=== PATIENT | female | born 1960 | race Caucasian/White ===

== ENCOUNTER 2017-04-10 11:54 | Observation (INO) | payer OTHER ==
[2017-04-10] MEDS ORDERED: NS 0.9% 1000 ML* 2,000 ML IV ONE (12:17)
[2017-04-10 13:07] LABS: Hematocrit 38 % (35-47); Hemoglobin 12.9 g/dl (12.0-16.0); Mean Corpuscular HGB Conc 34 g/dl (31-36); Mean Corpuscular Hemoglobin 33 pg (27-31); Mean Corpuscular Volume 98 fL (80-97); Mean Platelet Volume 9 um3 (7.4-10.4); Red Blood Count 3.91 10^6/ul (4.0-5.4); Red Cell Distribution Width 20 % (10.5-15)
[2017-04-10 13:08] LABS: Add Diff/Slide Review? Slide Review Added; Comments Flag Yes
[2017-04-10 13:18] LABS: Albumin 3.4 g/dL (3.2-5.2); BUN/Creatinine Ratio 16.7 (8-20); Calcium 8.8 mg/dL (8.6-10.3); EGFR African American 90.2 (>60); EGFR Non-African American 70.1 (>60); Globulin 3.3 g/dL (2-4); Potassium 3.2 mmol/L (3.5-5.0); Total Bilirubin 1.1 mg/dL (0.2-1.0); Total Protein 6.7 g/dL (6.4-8.9)
[2017-04-10] MEDS ORDERED: Ondansetron INJ* 2 MG/ML VIAL IV PRN (15:55)
[2017-04-10 16:36] LABS: Hematocrit 32 % (35-47); Hemoglobin 11.1 g/dl (12.0-16.0); Mean Corpuscular HGB Conc 34 g/dl (31-36); Mean Corpuscular Hemoglobin 34 pg (27-31); Mean Corpuscular Volume 98 fL (80-97); Mean Platelet Volume 9 um3 (7.4-10.4); Red Blood Count 3.31 10^6/ul (4.0-5.4); Red Cell Distribution Width 21 % (10.5-15); White Blood Count 7.1 10^3/ul (3.5-10.8)
[2017-04-10] MEDS: NS 0.9% w/ 40 Meq KCL 1000 ML* 1,000 ML IV SCH (17:17)
--- NOTE | 2017-04-10 18:21 | ED ---
Theo Islas Benjamin, scribed for Noble Buck MD on 04/10/17 at 1225 . GI/ HPI - HPI Summary HPI Summary: 56yo female presents to ED for blood in her stoma bag. Pt noticed blood in her stoma bag when she went to the bathroom to empty her bag. Pt is a chemo pt who is on 10 days on 4 days off chemotherapy regime (Avastin and Xeloda). Pt is a colon CA with mets to her liver. Denies dizziness, weakness, RODRIGUEZ, or any pain. Additional PMHx includes DVT. Pt has a filter in for clots. FHX of factor 5. - History of Current Complaint Chief Complaint: EDGIBleed Stated Complaint: STOMA Hx Obtained From: Patient Onset/Duration: Started Hours Ago, Atraumatic, Still Present Timing: Constant Severity: Mild Current Severity: Mild Vaginal Bleeding Description: Bright Red Pain Intensity: 0 Location of Pain: None Associated Signs and Symptoms: Positive: Negative. Negative: Dizziness, Weakness, Syncope, Abdominal Pain - Additional Pertinent History Primary Care Physician: AKIN - Allergy/Home Medications Allergies/Adverse Reactions: Allergies Allergy/AdvReac Type Severity Reaction Status Date / Time Iodinated Diagnostic Agents Allergy Hives Verified 04/10/17 13:47 HAY FEVER Allergy Eyes Uncoded 04/10/17 13:47 Itchy/Swollen/Red/Watery IODINE DYE Allergy Hives Uncoded 04/10/17 13:47 Home Medications: Home Medications Capecitabine (NF) [Xeloda (NF)] 1,000 mg PO BID 04/10/17 [History Confirmed ] Capecitabine (NF) [Xeloda (NF)] 300 mg PO BID 04/10/17 [History Confirmed ] Famotidine TAB* [Pepcid 20 MG TAB*] 40 mg PO DAILY 04/10/17 [History Confirmed 04/10/17] Ondansetron TAB* [Zofran 4 MG Tab*] 4 mg PO Q6H PRN 04/10/17 [History Confirmed 04/10/17] PMH/Surg Hx/FS Hx/Imm Hx Endocrine/Hematology History: Reports: Hx Anemia - ON MEDICATION Denies: Hx Diabetes, Hx Systemic Lupus Erythematosus Cardiovascular History: Reports: Hx Deep Vein Thrombosis, Other Cardiovascular Problems/Disorders - DVT LEFT LEG PRESENTLY AND ONE IN 1990; LOVENOX THERPHY Denies: Hx Congestive Heart Failure, Hx Hypertension, Hx Pacemaker/ICD GI History: Reports: Other GI Disorders - 6 months of diarrhea abd pain History: Denies: Hx Dialysis, Hx Renal Disease Musculoskeletal History: Denies: Hx Rheumatoid Arthritis Sensory History: Reports: Hx Cataracts - LEFT, Hx Contacts or Glasses - READING GLASSES Denies: Hx Hearing Aid Opthamlomology History: Reports: Hx Cataracts - LEFT, Hx Contacts or Glasses - READING GLASSES Psychiatric History: Denies: Hx Panic Disorder - Cancer History Cancer Type, Location and Year: colon cancer with mets to liver Hx Chemotherapy: Yes Hx Radiation Therapy: No - Surgical History Surgery Procedure, Year, and Place: thumb; colectomy and appy 07/19/15; IVC FILTER PLACED WITH DR. WORTHINGTON 01/28/16 [facility] - IMMEDIATELY AFTER IMPLANTATION 1.5T MRI CONDITIONAL 6-OK TO 2500G/CM (PT WILL BRING CARD WITH HER WELL) ; POWER PORT; portal vein embolization and paratial removal of liver 2015. Hx Anesthesia Reactions: No Infectious Disease History: Denies: Traveled Outside the [place] in Last 30 Days - Family History Known Family History: Positive: Blood Disorder - factor 5 Negative: Cardiac Disease, Hypertension - Social History Occupation: Employed Full-time Lives: With Family Alcohol Use: None Alcohol Amount: SINCE 08/2015 Substance Use Type: Reports: None Smoking Status (MU): Never Smoked Tobacco Review of Systems Constitutional: Negative Eyes: Negative ENT: Negative Cardiovascular: Negative Respiratory: Negative Positive: Other - blood in her stoma bag Genitourinary: Negative Musculoskeletal: Negative Skin: Negative Neurological: Negative Psychological: Normal All Other Systems Reviewed And Are Negative: Yes Physical Exam Triage Information Reviewed: Yes Vital Signs On Initial Exam: Initial Vitals Temp Pulse Resp BP Pulse Ox 97.6 F 116 20 135/91 98 04/10/17 11:56 04/10/17 11:56 04/10/17 11:56 04/10/17 11:56 04/10/17 11:56 Vital Signs Reviewed: Yes Appearance: Positive: Well-Appearing, No Pain Distress, Well-Nourished Skin: Positive: Warm, Skin Color Reflects Adequate Perfusion, Dry Head/Face: Positive: Normal Head/Face Inspection Eyes: Positive: Normal ENT: Positive: Normal ENT inspection, Hearing grossly normal Neck: Positive: Supple, Nontender Respiratory/Lung Sounds: Positive: Clear to Auscultation, Breath Sounds Present Cardiovascular: Positive: RRR. Negative: Murmur Abdomen Description: Positive: Nontender, Soft, Other: - blood in stoma bag Bowel Sounds: Positive: Present Musculoskeletal: Positive: Strength/ROM Intact Neurological: Positive: Sensory/Motor Intact, Alert, Oriented to Person Place, Time Psychiatric: Positive: Affect/Mood Appropriate Diagnostics - Vital Signs Vital Signs Temp Pulse Resp BP Pulse Ox 04/10/17 11:56 97.6 F 116 20 135/91 98 - Laboratory Lab Results: Lab Results 04/10/17 04/10/17 04/10/17 Range/Units 12:15 12:15 12:15 WBC 9.0 (3.5-10.8) 10^3/ul RBC 3.91 L (4.0-5.4) 10^6/ul Hgb 12.9 (12.0-16.0) g/dl Hct 38 (35-47) % MCV 98 H (80-97) fL MCH 33 H (27-31) pg MCHC 34 (31-36) g/dl RDW 20 H (10.5-15) % Plt Count 142 L (150-450) 10^3/ul MPV 9 (7.4-10.4) um3 Neut % (Auto) 75.1 (38-83) % Lymph % (Auto) 11.3 L (25-47) % [place] % (Auto) 11.0 H (1-9) % Eos % (Auto) 2.2 (0-6) % Baso % (Auto) 0.4 (0-2) % Absolute Neuts (auto) 6.8 (1.5-7.7) 10^3/ul Absolute Lymphs (auto) 1.0 (1.0-4.8) 10^3/ul Absolute Monos (auto) 1.0 H (0-0.8) 10^3/ul Absolute Eos (auto) 0.2 (0-0.6) 10^3/ul Absolute Basos (auto) 0 (0-0.2) 10^3/ul Absolute Nucleated RBC 0.01 10^3/ul Nucleated RBC % 0.1 INR (Anticoag Therapy) 0.98 (0.89-1.11) APTT 26.0 (26.0-36.3) seconds Sodium (133-145) mmol/L Potassium (3.5-5.0) mmol/L Chloride (101-111) mmol/L Carbon Dioxide (22-32) mmol/L Anion Gap (2-11) mmol/L BUN (6-24) mg/dL Creatinine (0.51-0.95) mg/dL Est GFR ( Amer) (>60) Est GFR (Non-Af Amer) (>60) BUN/Creatinine Ratio (8-20) Glucose (70-100) mg/dL Calcium (8.6-10.3) mg/dL Magnesium (1.9-2.7) mg/dL Total Bilirubin (0.2-1.0) mg/dL AST (13-39) U/L ALT (7-52) U/L Alkaline Phosphatase (34-104) U/L Total Protein (6.4-8.9) g/dL Albumin (3.2-5.2) g/dL Globulin (2-4) g/dL Albumin/Globulin Ratio (1-3) Blood Type O Positive Antibody Screen Negative Crossmatch See Detail 04/10/17 Range/Units 12:15 WBC (3.5-10.8) 10^3/ul RBC (4.0-5.4) 10^6/ul Hgb (12.0-16.0) g/dl Hct (35-47) % MCV (80-97) fL MCH (27-31) pg MCHC (31-36) g/dl RDW (10.5-15) % Plt Count (150-450) 10^3/ul MPV (7.4-10.4) um3 Neut % (Auto) (38-83) % Lymph % (Auto) (25-47) % [place] % (Auto) (1-9) % Eos % (Auto) (0-6) % Baso % (Auto) (0-2) % Absolute Neuts (auto) (1.5-7.7) 10^3/ul Absolute Lymphs (auto) (1.0-4.8) 10^3/ul Absolute Monos (auto) (0-0.8) 10^3/ul Absolute Eos (auto) (0-0.6) 10^3/ul Absolute Basos (auto) (0-0.2) 10^3/ul Absolute Nucleated RBC 10^3/ul Nucleated RBC % INR (Anticoag Therapy) (0.89-1.11) APTT (26.0-36.3) seconds Sodium 140 (133-145) mmol/L Potassium 3.2 L (3.5-5.0) mmol/L Chloride 111 (101-111) mmol/L Carbon Dioxide 23 (22-32) mmol/L Anion Gap 6 (2-11) mmol/L BUN 14 (6-24) mg/dL Creatinine 0.84 (0.51-0.95) mg/dL Est GFR ( Amer) 90.2 (>60) Est GFR (Non-Af Amer) 70.1 (>60) BUN/Creatinine Ratio 16.7 (8-20) Glucose 152 H (70-100) mg/dL Calcium 8.8 (8.6-10.3) mg/dL Magnesium 2.0 (1.9-2.7) mg/dL Total Bilirubin 1.10 H (0.2-1.0) mg/dL AST 120 H (13-39) U/L ALT 92 H (7-52) U/L Alkaline Phosphatase 246 H (34-104) U/L Total Protein 6.7 (6.4-8.9) g/dL Albumin 3.4 (3.2-5.2) g/dL Globulin 3.3 (2-4) g/dL Albumin/Globulin Ratio 1.0 (1-3) Blood Type Antibody Screen Crossmatch Result Diagrams: 04/10/17 16:15 04/10/17 12:15 Lab Statement: Any lab studies that have been ordered have been reviewed, and results considered in the medical decision making process. Re-Evaluation - Re-Evaluation First Eval Re-Evaluation Time: 13:21 Comment: Reviewed pts lab results with the pt. Also discussed pt's course of treatment and disposition. GIGU Course/Dx - Course Course Of Treatment: Reviewed pts medication and allergy lists. Blood pressure noted. Discussed with Dr. Campuzano (GI) at 12:22 for pts case. Discussed with Dr. Youssef (Oncology) at 12:26 for pts case. Assessment/Plan: On arrival Ms. Cano reported feeling fine today and going into the bathroom to empty her stoma bag and finding it full of blood. She called the ambulance and by the time she got here, the bag was full again. She was tachycardic therefore two peripheral lines were started and she was given NS while labs were obtained. Given her potential for decompensation, PRBC's were ordered and Dr. Youssef and Dr. Campuzano were notified. She actually did quite well and was no longer tachy after a fluid bolus and had only very little output into the bag. - Diagnoses Provider Diagnoses: Lower GI hemorrhage - Critical Care Time Critical Care Time: 30-74 min Discharge - Discharge Plan Condition: Stable Disposition: ADMITTED TO [facility] The documentation as recorded by the Theo benitez Benjamin accurately reflects the service I personally performed and the decisions made by me, Noble Buck MD.
[2017-04-10 20:40] LABS: Hematocrit 34 % (35-47); Hemoglobin 11.4 g/dl (12.0-16.0); Mean Corpuscular HGB Conc 34 g/dl (31-36); Mean Corpuscular Hemoglobin 33 pg (27-31); Mean Corpuscular Volume 98 fL (80-97); Mean Platelet Volume 9 um3 (7.4-10.4); Red Blood Count 3.43 10^6/ul (4.0-5.4); Red Cell Distribution Width 20 % (10.5-15); White Blood Count 6.5 10^3/ul (3.5-10.8)
--- NOTE | 2017-04-10 21:37 | CONS ---
GASTROENTEROLOGY CONSULTATION REPORT: DATE OF CONSULTATION: 04/10/17 CONSULTING PHYSICIAN: Rambo Newell MD. REASON FOR CONSULTATION: GI bleeding. HISTORY: This 56-year-old woman with a history of metastatic colon cancer to the liver, status post complex prior treatment including right hepatectomy, came to the emergency room with arya GI bleeding into her colostomy bag. She has recently been through 4 cycles of Avastin and Xeloda (Avastin infusion; 10 days Xeloda, 4 days off) and has been feeling reasonably well. Last night she gardened for a couple of hours. She was fine after that and ate well. She has actually been gaining some weight. In the morning, she thought her bag was full with stool, but it turned out to be blood. A couple of hours later, there was blood again. She came to the emergency room. There seemed to be blood streaming out of the stoma and indeed, the emergency physicians called me saying it was "pouring out." Dr. Vora was summoned and there seemed to be blood superficially. Pressure was applied and bleeding stopped. A suture was considered. The patient had had a colonoscopy through the stoma by Dr. Philip on 07/03/16, but no diverticula seen and no new tumor. Originally, she had had a presentation with peritonitis-free perforation, resection of the sigmoid causative tumor and biopsy of liver mets on 07/19/15. PAST MEDICAL HISTORY: 1. History of DVT - with her original June 2015 presentation - she has an IVC filter now. 2. Status post multiple abdominal surgeries with the original illness. 3. Status post right hepatectomy - this was preceded by embolization to hypertrophy on the left. 4. Biliary obstruction - she had a sequence of common bile duct stents June 2016 to January 2017. 5. Metastatic disease - trend on the most recent labs is that of alkaline phosphatase declining from 499 on 02/16/17 now to 246 on 04/10/17. CEA declining in the same time frame from 113 five steps downward to current 48.8. CURRENT MEDICATIONS: At home: 1. Zofran. 2. Xeloda. 3. Famotidine. 4. Ferrous sulfate. 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 REVIEW OF SYSTEMS: No history of prior GI bleeding, heartburn, vomiting, dysphagia, hepatitis, hemoptysis, TB, pulmonary metastasis. She does have an umbilical hernia, but no current abdominal pain. PHYSICAL EXAMINATION: She is in bed with her family present, quite jovial and joking. HEENT Exam: Unremarkable. She has no adenopathy. Her lungs are clear and heart sounds regular. The abdomen has multiple scars and an umbilical area of fullness, though there is no tenderness. There is a stoma in the left mid abdomen, not uncovered. Extremities show no edema. Neurologic is nonfocal. LABORATORY DATA/DIAGNOSTIC STUDIES: Hemoglobin 11.1, hematocrit 32, platelets 103,000. Albumin 3.4. LFTs: Alkaline phosphatase 246, ALT 92, AST 120, bilirubin 1.1, creatinine 0.84, BUN 14. CT reviewed - intraluminal contents in the colon in the right upper quadrant. IMPRESSION: Lower GI bleeding which appeared to stop when local pressure was applied at the stoma. that she had no actual melena, BUN normal and Dr. Philip's colonoscopy just 9 months ago did not show any diverticula. I have asked him in a topic review, I saw as a 3.5 to 4 fold increase in GI perforations and a 1.8 fold increase in bleeding, though specific pattern of GI bleeding was not referenced. If she stays, stops and converts to heme-negative status, then no further evaluation would appear necessary. Persistent liver involvement of the tumor appears to be a separate issue and there clearly is some biliary impingement as evidenced by the elevated alkaline phosphatase but the trends of that CEA are favorable. [id number]/[facility] #: [id number] MTDD
[2017-04-11 06:54] LABS: Hematocrit 34 % (35-47); Hemoglobin 11.3 g/dl (12.0-16.0); Mean Corpuscular HGB Conc 34 g/dl (31-36); Mean Corpuscular Hemoglobin 33 pg (27-31); Mean Corpuscular Volume 98 fL (80-97); Mean Platelet Volume 9 um3 (7.4-10.4); Red Blood Count 3.43 10^6/ul (4.0-5.4); Red Cell Distribution Width 21 % (10.5-15); White Blood Count 5.2 10^3/ul (3.5-10.8)
[2017-04-11 07:05] LABS: Albumin 2.7 g/dL (3.2-5.2); BUN/Creatinine Ratio 19.3 (8-20); Calcium 8.2 mg/dL (8.6-10.3); EGFR African American 91.5 (>60); EGFR Non-African American 71.1 (>60); Globulin 2.7 g/dL (2-4); Potassium 4.1 mmol/L (3.5-5.0); Total Bilirubin 1.8 mg/dL (0.2-1.0); Total Protein 5.4 g/dL (6.4-8.9)
[2017-04-11] MEDS: NS 0.9% w/ 40 Meq KCL 1000 ML* 1,000 ML IV SCH (07:10)
[2017-04-11 11:24] VITALS: BP 123/74
== END 2017-04-11 13:58 | disposition home or self-care (01) ==
LOC: ED 11:54 → MEDTELE 14:17 → INTOOBSV 14:17
PROVIDERS: ADMIT Internal Medicine Hematology & Oncology; ATTEND Internal Medicine Hematology & Oncology
DX: K92.2 Gastrointestinal hemorrhage, unspecified (principal); C18.9 Malignant neoplasm of colon, unspecified; C78.7 Secondary malignant neoplasm of liver and intrahepatic bile duct; Z91.041 Radiographic dye allergy status; D64.9 Anemia, unspecified; Z93.3 Colostomy status; Z86.718 Personal history of other venous thrombosis and embolism; Z79.01 Long term (current) use of anticoagulants
CPT/HCPCS: 36415; 80053; 83735; 85025; 85610; 85730; 86850; 86900; 86901; 86922; 96360; 96372; 99223; 99238; 99291; G0378; J1642

== ENCOUNTER 2017-04-24 23:16 | Emergency (ER) | payer OTHER ==
[2017-04-25 02:21] LABS: Hematocrit 30 % (35-47); Hemoglobin 10.3 g/dl (12.0-16.0); Mean Corpuscular HGB Conc 34 g/dl (31-36); Mean Corpuscular Hemoglobin 34 pg (27-31); Mean Corpuscular Volume 101 fL (80-97); Mean Platelet Volume 9 um3 (7.4-10.4); Red Blood Count 3.01 10^6/ul (4.0-5.4); Red Cell Distribution Width 19 % (10.5-15); White Blood Count 4.6 10^3/ul (3.5-10.8)
[2017-04-25 02:33] LABS: Albumin 2.7 g/dL (3.2-5.2); BUN/Creatinine Ratio 11.6 (8-20); Calcium 8.5 mg/dL (8.6-10.3); EGFR African American 113.2 (>60); Globulin 2.9 g/dL (2-4); Potassium 3.4 mmol/L (3.5-5.0); Total Bilirubin 3.2 mg/dL (0.2-1.0); Total Protein 5.6 g/dL (6.4-8.9)
--- NOTE | 2017-04-25 02:56 | ED ---
Ike Islas Thomas, scribed for Roberto Gonzalez on 04/25/17 at 0104 . GI/ HPI - HPI Summary HPI Summary: The pt is a 56 y/o F presenting to the ED c/o bleeding stoma s/p taking a BM at 21:00. At time of examination, the bleeding has ceased. She has a colostomy bag d/t her Hx of colon CA. Her surgeon is Dr. Richmond and her oncologist is Dr. Newell. She has had a colostomy for two years, but she has only had issues with her stoma bleeding in the last two weeks. She saw Dr. Richmond a week ago. Pt denies abd pain. She had chemotherapy 2 weeks ago. She denies being on any blood thinners. PMHx: DVT, colon CA, hernia. PSHx: colostomy. - History of Current Complaint Chief Complaint: EDGeneral Time Seen by Provider: 04/25/17 00:50 Stated Complaint: OSTOMY BAG BLEED Hx Obtained From: Patient, Family/Refining Still Operator - in room Onset/Duration: Started Hours Ago - onset today at 21:00, Resolved Timing: Constant Pain Intensity: 0 Associated Signs and Symptoms: Negative: Fever, Abdominal Pain Aggravating Factor(s): Nothing Alleviating Factor(s): Nothing - Additional Pertinent History Primary Care Physician: AKIN - Allergy/Home Medications Allergies/Adverse Reactions: Allergies Allergy/AdvReac Type Severity Reaction Status Date / Time Iodinated Diagnostic Agents Allergy Hives Verified 04/24/17 23:22 HAY FEVER Allergy Eyes Uncoded 04/24/17 23:22 Itchy/Swollen/Red/Watery IODINE DYE Allergy Hives Uncoded 04/24/17 23:22 PMH/Surg Hx/FS Hx/Imm Hx Previously Healthy: No Endocrine/Hematology History: Reports: Hx Anemia - ON MEDICATION Denies: Hx Diabetes, Hx Systemic Lupus Erythematosus Cardiovascular History: Reports: Hx Deep Vein Thrombosis, Other Cardiovascular Problems/Disorders - DVT LEFT LEG PRESENTLY AND ONE IN 1990; LOVENOX THERPHY Denies: Hx Congestive Heart Failure, Hx Hypertension, Hx Pacemaker/ICD GI History: Reports: Other GI Disorders - 6 months of diarrhea abd pain History: Denies: Hx Dialysis, Hx Renal Disease Musculoskeletal History: Denies: Hx Rheumatoid Arthritis Sensory History: Reports: Hx Cataracts - LEFT, Hx Contacts or Glasses - READING GLASSES Denies: Hx Hearing Aid Opthamlomology History: Reports: Hx Cataracts - LEFT, Hx Contacts or Glasses - READING GLASSES Psychiatric History: Denies: Hx Panic Disorder - Cancer History Cancer Type, Location and Year: colon cancer with mets to liver Hx Chemotherapy: Yes Hx Radiation Therapy: No - Surgical History Surgery Procedure, Year, and Place: thumb; colectomy and appy 07/19/15; IVC FILTER PLACED WITH DR. WORTHINGTON 01/28/16 [place] [facility] - IMMEDIATELY AFTER IMPLANTATION 1.5T MRI CONDITIONAL 6-OK TO 2500G/CM (PT WILL BRING CARD WITH HER WELL) ; POWER PORT; portal vein embolization and paratial removal of liver 2015. Hx Anesthesia Reactions: No Infectious Disease History: No Infectious Disease History: Reports: Traveled Outside the [place] in Last 30 Days - [place] - Family History Known Family History: Positive: Blood Disorder - factor 5 Negative: Cardiac Disease, Hypertension - Social History Alcohol Use: None Alcohol Amount: SINCE 08/2015 Substance Use Type: Reports: None Smoking Status (MU): Never Smoked Tobacco Review of Systems Negative: Fever Positive: Other - POS: bleeding stoma, relieved at time of examination. Negative: Abdominal Pain All Other Systems Reviewed And Are Negative: Yes Physical Exam Triage Information Reviewed: Yes Vital Signs On Initial Exam: Initial Vitals Temp Pulse Resp BP Pulse Ox 97.6 F 91 16 126/75 98 04/24/17 23:23 04/24/17 23:23 04/24/17 23:23 04/24/17 23:23 04/24/17 23:23 Vital Signs Reviewed: Yes Appearance: Positive: Well-Appearing, No Pain Distress Skin: Positive: Warm, Skin Color Reflects Adequate Perfusion, Dry Head/Face: Positive: Normal Head/Face Inspection Eyes: Positive: EOMI, REFUGIO ENT: Positive: Normal ENT inspection Neck: Positive: Supple, Nontender Respiratory/Lung Sounds: Positive: Clear to Auscultation, Breath Sounds Present Cardiovascular: Positive: RRR, Pulses are Symmetrical in both Upper and Lower Extremities Abdomen Description: Positive: Nontender, Soft, Other: - abdominal colostomy. no active bleeding. Bowel Sounds: Positive: Present Musculoskeletal: Positive: Normal, Strength/ROM Intact Neurological: Positive: Normal, Sensory/Motor Intact, Alert, Oriented to Person Place, Time Psychiatric: Positive: Normal, Affect/Mood Appropriate Diagnostics - Vital Signs Vital Signs Temp Pulse Resp BP Pulse Ox 04/25/17 00:43 85 97 04/25/17 00:41 117/75 04/24/17 23:23 97.6 F 91 16 126/75 98 - Laboratory Lab Results: Lab Results 04/25/17 04/25/17 04/25/17 Range/Units 02:10 02:10 02:10 WBC 4.6 (3.5-10.8) 10^3/ul RBC 3.01 L (4.0-5.4) 10^6/ul Hgb 10.3 L (12.0-16.0) g/dl Hct 30 L (35-47) % MCV 101 H (80-97) fL MCH 34 H (27-31) pg MCHC 34 (31-36) g/dl RDW 19 H (10.5-15) % Plt Count 105 L (150-450) 10^3/ul MPV 9 (7.4-10.4) um3 Neut % (Auto) 70.3 (38-83) % Lymph % (Auto) 10.4 L (25-47) % [place] % (Auto) 12.9 H (1-9) % Eos % (Auto) 5.1 (0-6) % Baso % (Auto) 1.3 (0-2) % Absolute Neuts (auto) 3.3 (1.5-7.7) 10^3/ul Absolute Lymphs (auto) 0.5 L (1.0-4.8) 10^3/ul Absolute Monos (auto) 0.6 (0-0.8) 10^3/ul Absolute Eos (auto) 0.2 (0-0.6) 10^3/ul Absolute Basos (auto) 0.1 (0-0.2) 10^3/ul Absolute Nucleated RBC 0 10^3/ul Nucleated RBC % 0.1 INR (Anticoag Therapy) 1.01 (0.89-1.11) APTT 30.7 (26.0-36.3) seconds Sodium 137 (133-145) mmol/L Potassium 3.4 L (3.5-5.0) mmol/L Chloride 110 (101-111) mmol/L Carbon Dioxide 20 L (22-32) mmol/L Anion Gap 7 (2-11) mmol/L BUN 8 (6-24) mg/dL Creatinine 0.69 (0.51-0.95) mg/dL Est GFR ( Amer) 113.2 (>60) Est GFR (Non-Af Amer) 88.0 (>60) BUN/Creatinine Ratio 11.6 (8-20) Glucose 107 H (70-100) mg/dL Calcium 8.5 L (8.6-10.3) mg/dL Total Bilirubin 3.20 H (0.2-1.0) mg/dL AST 79 H (13-39) U/L ALT 64 H (7-52) U/L Alkaline Phosphatase 319 H (34-104) U/L Total Protein 5.6 L (6.4-8.9) g/dL Albumin 2.7 L (3.2-5.2) g/dL Globulin 2.9 (2-4) g/dL Albumin/Globulin Ratio 0.9 L (1-3) Result Diagrams: 04/25/17 02:10 04/25/17 02:10 Lab Statement: Any lab studies that have been ordered have been reviewed, and results considered in the medical decision making process. GIGU Course/Dx - Course Assessment/Plan: The patient has a Hx of colon CA and colostomy. She presents because she is bleeding from her colostomy site. The bleeding has stopped at time of examination and no bleeding in ER is noted. Bloodwork was obtained and are stale as before. The patient was discharged with follow up by her surgeon Dr. Richmond in 2 days. - Diagnoses Provider Diagnoses: Colon cancer, Bleeding from colostomy stoma Discharge - Discharge Plan Condition: Stable Disposition: HOME Referrals: Bandar Richmond MD [Medical Doctor] - 2 Days The documentation as recorded by the Ike benitez Thomas accurately reflects the service I personally performed and the decisions made by , Roberto Gonzalez.
[2017-04-25 03:15] VITALS: BP 109/70
== END 2017-04-25 03:17 | disposition home or self-care (01) ==
LOC: ED 23:16
DX: K94.01 Colostomy hemorrhage (principal); Z85.038 Personal history of other malignant neoplasm of large intestine; Z86.718 Personal history of other venous thrombosis and embolism; D64.9 Anemia, unspecified
CPT/HCPCS: 36415; 80053; 85025; 85610; 85730; 99282

== ENCOUNTER 2017-05-17 11:37 | Emergency (ER) | payer OTHER ==
[2017-05-17] MEDS ORDERED: NS 0.9% 1000 ML* 1,000 ML IV ONE (11:59)
[2017-05-17 12:22] LABS: Hematocrit 28 % (35-47); Hemoglobin 9.3 g/dl (12.0-16.0); Mean Corpuscular HGB Conc 33 g/dl (31-36); Mean Corpuscular Hemoglobin 32 pg (27-31); Mean Corpuscular Volume 97 fL (80-97); Mean Platelet Volume 10 um3 (7.4-10.4); Red Blood Count 2.91 10^6/ul (4.0-5.4); Red Cell Distribution Width 17 % (10.5-15); White Blood Count 3.1 10^3/ul (3.5-10.8)
[2017-05-17 12:46] LABS: Albumin 2.7 g/dL (3.2-5.2); BUN/Creatinine Ratio 10.6 (8-20); Calcium 8.3 mg/dL (8.6-10.3); EGFR Non-African American 69.2 (>60); Potassium 3.7 mmol/L (3.5-5.0); Total Bilirubin 1.2 mg/dL (0.2-1.0); Total Protein 5.7 g/dL (6.4-8.9)
[2017-05-17 12:47] LABS: Add Diff/Slide Review? Slide Review Added; Comments Flag Yes
[2017-05-17 15:29] VITALS: BP 117/65
--- NOTE | 2017-05-17 18:36 | ED ---
Tha Islas Angela, scribed for Delio Mccray MD on 05/17/17 at 1155 . GI/ HPI - HPI Summary HPI Summary: This pt is a 56 y/o female presenting to [facility] c/o bleeding from the stoma for 6 weeks now. Pt additionally c/o abdominal distension and retaining fluids. Pt notes that her bleeding began relatively at the same time she was getting chemo. She states her colostomy bag was placed by Dr. Richmond, surgeon. Pt's oncologist is Dr. Newell. - History of Current Complaint Chief Complaint: EDGIBleed Time Seen by Provider: 05/17/17 11:49 Stated Complaint: STOMA BLEEDING Hx Obtained From: Patient Onset/Duration: Started Weeks Ago Timing: Constant, Lasting Weeks Pain Intensity: 0 Associated Signs and Symptoms: Positive: Other: - Bleeding with clots from stoma.. Negative: Nausea, Vomiting - Additional Pertinent History Primary Care Physician: AKIN - Allergy/Home Medications Allergies/Adverse Reactions: Allergies Allergy/AdvReac Type Severity Reaction Status Date / Time Iodinated Diagnostic Agents Allergy Hives Verified 05/17/17 12:39 HAY FEVER Allergy Eyes Uncoded 05/17/17 12:39 Itchy/Swollen/Red/Watery IODINE DYE Allergy Hives Uncoded 05/17/17 12:39 PMH/Surg Hx/FS Hx/Imm Hx Endocrine/Hematology History: Reports: Hx Anemia - ON MEDICATION Denies: Hx Diabetes, Hx Systemic Lupus Erythematosus Cardiovascular History: Reports: Hx Deep Vein Thrombosis, Other Cardiovascular Problems/Disorders - DVT LEFT LEG PRESENTLY AND ONE IN 1990; LOVENOX THERPHY Denies: Hx Congestive Heart Failure, Hx Hypertension, Hx Pacemaker/ICD GI History: Reports: Other GI Disorders - 6 months of diarrhea abd pain History: Denies: Hx Dialysis, Hx Renal Disease Musculoskeletal History: Denies: Hx Rheumatoid Arthritis Sensory History: Reports: Hx Cataracts - LEFT, Hx Contacts or Glasses - READING GLASSES Denies: Hx Hearing Aid Opthamlomology History: Reports: Hx Cataracts - LEFT, Hx Contacts or Glasses - READING GLASSES Psychiatric History: Denies: Hx Panic Disorder - Cancer History Cancer Type, Location and Year: colon cancer with mets to liver Hx Chemotherapy: Yes Hx Radiation Therapy: No - Surgical History Surgery Procedure, Year, and Place: thumb; colectomy and appy 07/19/15; IVC FILTER PLACED WITH DR. WORTHINGTON 01/28/16 [facility] - IMMEDIATELY AFTER IMPLANTATION 1.5T MRI CONDITIONAL 6-OK TO 2500G/CM (PT WILL BRING CARD WITH HER WELL) ; POWER PORT; portal vein embolization and paratial removal of liver 2015. Hx Anesthesia Reactions: No Infectious Disease History: No Infectious Disease History: Denies: Traveled Outside the [place] in Last 30 Days - Family History Known Family History: Positive: Blood Disorder - factor 5 Negative: Cardiac Disease, Hypertension - Social History Alcohol Use: None Alcohol Amount: SINCE 08/2015 Substance Use Type: Reports: None Smoking Status (MU): Never Smoked Tobacco Review of Systems Negative: Fever, Chills Negative: Chest Pain Negative: Shortness Of Breath Positive: Other - Bleeding from the stoma Musculoskeletal: Negative Skin: Negative All Other Systems Reviewed And Are Negative: Yes Physical Exam - Summary Physical Exam Summary: VITAL SIGNS: Reviewed. GENERAL: ~Patient is a well-developed and nourished female who is lying comfortable in the stretcher. ~Patient is not in any acute respiratory distress. HEAD AND FACE: No signs of trauma. ~No ecchymosis, hematomas or skull depressions. No sinus tenderness. EYES: PERRLA, EOMI x 2, No injected conjunctiva, no nystagmus. EARS: Hearing grossly intact. Ear canals and tympanic membranes are within normal limits. MOUTH: Oropharynx within normal limits. NECK: Supple, trachea is midline, no adenopathy, no JVD, no carotid bruit, no c- spine tenderness, neck with full ROM. CHEST: Symmetric, no tenderness at palpation LUNGS: Clear to auscultation bilaterally. No wheezing or crackles. CVS: Regular rate and rhythm, S1 and S2 present, no murmurs or gallops appreciated. ABDOMEN: Soft, non-tender. No rebound no guarding, and no masses palpated. Bowel sounds are normal. There is colostomy bag on the left side containing blood clots. There is mild distension but no tenderness. EXTREMITIES: FROM in all major joints, no edema, no cyanosis or clubbing. NEURO: Alert and oriented x 3. No acute neurological deficits. Speech is normal and follows commands. SKIN: Dry and warm Triage Information Reviewed: Yes Vital Signs On Initial Exam: Initial Vitals Temp Pulse Resp BP Pulse Ox 99.2 F 101 20 139/80 99 05/17/17 11:43 05/17/17 11:43 05/17/17 11:43 05/17/17 11:43 05/17/17 11:43 Vital Signs Reviewed: Yes Diagnostics - Vital Signs Vital Signs Temp Pulse Resp BP Pulse Ox 05/17/17 11:43 99.2 F 101 20 139/80 99 - Laboratory Lab Results: Lab Results 05/17/17 05/17/17 05/17/17 Range/Units 12:08 12:08 12:08 WBC 3.1 L (3.5-10.8) 10^3/ul RBC 2.91 L (4.0-5.4) 10^6/ul Hgb 9.3 L (12.0-16.0) g/dl Hct 28 L (35-47) % MCV 97 (80-97) fL MCH 32 H (27-31) pg MCHC 33 (31-36) g/dl RDW 17 H (10.5-15) % Plt Count 110 L (150-450) 10^3/ul MPV 10 (7.4-10.4) um3 Neut % (Auto) 67.2 (38-83) % Lymph % (Auto) 10.8 L (25-47) % Donley % (Auto) 14.9 H (1-9) % Eos % (Auto) 5.8 (0-6) % Baso % (Auto) 1.3 (0-2) % Absolute Neuts (auto) 2.1 (1.5-7.7) 10^3/ul Absolute Lymphs (auto) 0.3 L (1.0-4.8) 10^3/ul Absolute Monos (auto) 0.5 (0-0.8) 10^3/ul Absolute Eos (auto) 0.2 (0-0.6) 10^3/ul Absolute Basos (auto) 0 (0-0.2) 10^3/ul Absolute Nucleated RBC 0 10^3/ul Nucleated RBC % 0.1 INR (Anticoag Therapy) 0.98 (0.89-1.11) APTT 38.6 H (26.0-36.3) seconds Sodium 135 (133-145) mmol/L Potassium 3.7 (3.5-5.0) mmol/L Chloride 110 (101-111) mmol/L Carbon Dioxide 20 L (22-32) mmol/L Anion Gap 5 (2-11) mmol/L BUN 9 (6-24) mg/dL Creatinine 0.85 (0.51-0.95) mg/dL Est GFR ( Amer) 89.0 (>60) Est GFR (Non-Af Amer) 69.2 (>60) BUN/Creatinine Ratio 10.6 (8-20) Glucose 134 H (70-100) mg/dL Calcium 8.3 L (8.6-10.3) mg/dL Total Bilirubin 1.20 H (0.2-1.0) mg/dL AST 61 H (13-39) U/L ALT 41 (7-52) U/L Alkaline Phosphatase 330 H (34-104) U/L Total Protein 5.7 L (6.4-8.9) g/dL Albumin 2.7 L (3.2-5.2) g/dL Globulin 3.0 (2-4) g/dL Albumin/Globulin Ratio 0.9 L (1-3) Blood Type Antibody Screen 05/17/17 Range/Units 12:08 WBC (3.5-10.8) 10^3/ul RBC (4.0-5.4) 10^6/ul Hgb (12.0-16.0) g/dl Hct (35-47) % MCV (80-97) fL MCH (27-31) pg MCHC (31-36) g/dl RDW (10.5-15) % Plt Count (150-450) 10^3/ul MPV (7.4-10.4) um3 Neut % (Auto) (38-83) % Lymph % (Auto) (25-47) % Donley % (Auto) (1-9) % Eos % (Auto) (0-6) % Baso % (Auto) (0-2) % Absolute Neuts (auto) (1.5-7.7) 10^3/ul Absolute Lymphs (auto) (1.0-4.8) 10^3/ul Absolute Monos (auto) (0-0.8) 10^3/ul Absolute Eos (auto) (0-0.6) 10^3/ul Absolute Basos (auto) (0-0.2) 10^3/ul Absolute Nucleated RBC 10^3/ul Nucleated RBC % INR (Anticoag Therapy) (0.89-1.11) APTT (26.0-36.3) seconds Sodium (133-145) mmol/L Potassium (3.5-5.0) mmol/L Chloride (101-111) mmol/L Carbon Dioxide (22-32) mmol/L Anion Gap (2-11) mmol/L BUN (6-24) mg/dL Creatinine (0.51-0.95) mg/dL Est GFR ( Amer) (>60) Est GFR (Non-Af Amer) (>60) BUN/Creatinine Ratio (8-20) Glucose (70-100) mg/dL Calcium (8.6-10.3) mg/dL Total Bilirubin (0.2-1.0) mg/dL AST (13-39) U/L ALT (7-52) U/L Alkaline Phosphatase (34-104) U/L Total Protein (6.4-8.9) g/dL Albumin (3.2-5.2) g/dL Globulin (2-4) g/dL Albumin/Globulin Ratio (1-3) Blood Type O Positive Antibody Screen Negative Result Diagrams: 05/17/17 12:08 05/17/17 12:08 Lab Statement: Any lab studies that have been ordered have been reviewed, and results considered in the medical decision making process. - EKG 1233 Cardiac Rate: NL - 80 bpm EKG Rhythm: Sinus Rhythm ST Segment: Normal EKG Interpretation: Normal axis. No ST elevation Re-Evaluation - Re-Evaluation First Eval Re-Evaluation Time: 15:13 Comment: I discussed the results and plan with the pt. The pt understands and agrees. GIGU Course/Dx - Course Assessment/Plan: This pt is a 56 y/o female presenting to [facility] c/o bleeding from the stoma for 6 weeks now. Pt additionally c/o abdominal distension and retaining fluids. Pt notes that her bleeding began relatively at the same time she was getting chemo. She states her colostomy bag was placed by Dr. Richmond. Pt was recently diagnosed DVT. Test results show WBC of 3.1, H&H of 9.3/28, APTT of 38.6, glucose of 134. In the ED course, the pt had diffuse slight bleeding around the stoma of the colostomy. She also had some blood clots within the colostomy bag. Pt has been dealing with this problem over the last 6 weeks intermittently. She was diagnosed with acute DVT in the leg, which may be worsening her symptoms. At this point, I discussed the case with Dr. Richmond, who suggests for the nurse practitioner from Dr. Bullock office to take a look at the pt. Therefore, we discussed the case with Tanisha Saini NP, for Dr. Newell. They will skip a dose of lovenox today, an increase 100 units at night. The pt will follow up in their office for further assessment and work up. They recommend for the pt to be discharged home. I discussed the results and plan with the pt. The pt understands and agrees. Pt is hemodynamically stable, alert and oriented x3. - Diagnoses Differential Diagnoses - Female: Esophagitis/Gastritis, Esophageal Varices, Gastritis, Gerd Provider Diagnoses: Stoma bleed Discharge - Discharge Plan Condition: Stable Disposition: HOME Patient Education Materials: Colostomy Care (ED) Referrals: Deana Hodges MD [Primary Care Provider] - Rambo Newell MD [Medical Doctor] - Additional Instructions: Please follow up with Dr. Newell in his office. The documentation as recorded by the Tha benitez Angela accurately reflects the service I personally performed and the decisions made by me, Delio Mccray MD.
--- NOTE | 2017-05-17 21:11 | CONS ---
CC: Dr. Newell; Dr. Deana Hodges * SURGICAL CONSULT NOTE: DATE OF CONSULT: 05/17/17 - EMERGENCY DEPT ATTENDING SURGEON: Dr. Bandar Richmond. (DICTATED BY [facility] OLSEN) CHIEF COMPLAINT: Colostomy bleeding. HISTORY OF PRESENT ILLNESS: This is a 56-year-old female, status post Saumya procedure for stage IV colon cancer with subsequent right hepatic lobectomy. She is followed for oncology care by Dr. Rambo Newell. She has had intermittent bleeding from the colostomy site over the past 6 weeks. By the patient's history, this seems to be coming from around the colostomy and not via the colostomy. She points to the midline where she feels pressure that transmits to the area of the colostomy. She had had some additional sutures placed by Dr. Richmond few weeks past. She states that there had been little to no bleeding over the past week. In addition, she was placed on Lovenox 120 mg subcutaneously beginning 1 week ago for new acute on chronic DVT of the left lower extremity that was prompted by some left ankle swelling. She states that this morning, she felt the consistency of clot in her ostomy bag and presented to the ED. The bag was emptied once by nursing here in the ED and then subsequently by myself for an estimated amount of clot of 50 to 100 cc along with another 10 to 20 cc of liquid blood. Her most recent PET CT scan on showed a left hepatic lobe lesion with decreased activity, multiple retroperitoneal lymph nodes with increased activity and some moderate free fluid , which was considered stable. She underwent paracentesis last week for 1.5 liters which was negative for malignant cells. Her last dose of Avastin was on 03/30/17. She was also recently placed on Bactrim and Flagyl by Dr. Newell for an area of an apparent colitis in the right upper quadrant. PHYSICAL EXAM: Temperature 99.2, blood pressure 122/68, pulse 89, respirations 17, room air saturation 98%. General: She appears well and in no acute distress. She denies any pain. Exam is limited to the abdomen where there was a left-sided colostomy appliance, well-healed midline surgical incision with apparent midline hernia. The abdomen is soft and nontender. Upon removal of the colostomy bag, the mucosa of the colostomy itself appears pink and healthy as does the deeper mucosa when viewed through test tube. Digital exam reveals no additional blood, mass or stool. There was no expressible blood from around the ostomy in any direction. The sutures between 9 and 12 o'clock positions are still intact. Ostomy bag was replaced. LABORATORY DATA: White blood cell count 3.1 (down from 4.6.) hemoglobin 9.3 ( down from 10.3.) Her INR is 1. PTT is mildly elevated at 38.6. Her BUN is normal. Her liver function tests are elevated but consistent with previous. Her albumin is 2.7. IMPRESSION: Pericolostomy bleeding, likely exacerbated by current dosing of the Lovenox. PLAN: I discussed her case with nurse practitioner, Tanisha Gauthier, who was covering for Dr. Newell. She agreed to slightly lower dose of Lovenox of 100 mg once daily. She will hold this evening's dose and restart tomorrow morning. Tanisha will also arrange for a check of her Anti-Xa level on Sunday in their office. I will also review her current situation with Dr. Richmond. I believe the patient otherwise be safely discharged from the ED. Her case was discussed with Dr. Mccray. CHUCHO OLSEN [id number]/[facility] #: [id number] TANA
== END 2017-05-17 15:26 | disposition home or self-care (01) ==
LOC: ED 11:37
DX: K94.01 Colostomy hemorrhage (principal); Y83.3 Surgical operation with formation of external stoma as the cause of abnormal reaction of the patient, or of later complication, without mention of misadventure at the time of the procedure; Y92.9 Unspecified place or not applicable; D64.9 Anemia, unspecified; Z86.718 Personal history of other venous thrombosis and embolism; C18.9 Malignant neoplasm of colon, unspecified; C78.7 Secondary malignant neoplasm of liver and intrahepatic bile duct; Z79.01 Long term (current) use of anticoagulants
CPT/HCPCS: 36415; 80053; 85025; 85610; 85730; 86850; 86900; 86901; 93005; 96360; 99282

== ENCOUNTER 2017-08-27 18:13 | Emergency (ER) | payer OTHER ==
--- NOTE | 2017-08-27 19:30 | ED ---
Upper Extremity Pain - HPI Summary HPI Summary: Pt here w/ fall prior to arrival. Was in [place] with family and slipped on the ice - fell w/ Rt arm outstretched and landed along side w/ shoulder abducted and arm by ear. Reports a bump in shoulder area which felt like it "went back in" while riding here from [place]. Has some associated elbow pain. Denies rib, head, neck, ab or back pain. Denies numbness, tingling, weakness and is moving fingers and wrist w/o pain - some pain w/ moving elbow and does not move shoulder. Took "2 acetaminophen" on the way here - pain is controlled at this time. No h/o previous Rt shoulder injury. No other health issues to report. - History of Current Complaint Chief Complaint: EDShoulderCKai Stated Complaint: RT SHOULDER INJURY Time Seen by Provider: 08/27/17 18:45 Hx Obtained From: Patient, Family/[place] [place] [employer] - family present - Allergies/Home Medications Allergies/Adverse Reactions: Allergies Allergy/AdvReac Type Severity Reaction Status Date / Time Iodinated Diagnostic Agents Allergy Hives Verified 08/02/17 10:17 HAY FEVER Allergy Eyes Uncoded 08/02/17 10:17 Itchy/Swollen/Red/Watery PMH/Surg Hx/FS Hx/Imm Hx Previously Healthy: Yes Endocrine/Hematology History: Reports: Hx Anemia - ON MEDICATION Denies: Hx Diabetes, Hx Systemic Lupus Erythematosus Cardiovascular History: Reports: Hx Deep Vein Thrombosis, Other Cardiovascular Problems/Disorders - DVT LEFT LEG PRESENTLY AND ONE IN 1990; LOVENOX THERPHY Denies: Hx Congestive Heart Failure, Hx Hypertension, Hx Pacemaker/ICD GI History: Reports: Other GI Disorders - 6 months of diarrhea abd pain History: Denies: Hx Dialysis, Hx Renal Disease Musculoskeletal History: Denies: Hx Rheumatoid Arthritis Sensory History: Reports: Hx Cataracts - LEFT, Hx Contacts or Glasses - READING GLASSES Denies: Hx Hearing Aid Opthamlomology History: Reports: Hx Cataracts - LEFT, Hx Contacts or Glasses - READING GLASSES Psychiatric History: Denies: Hx Panic Disorder - Cancer History Cancer Type, Location and Year: colon cancer with mets to liver Hx Chemotherapy: Yes Hx Radiation Therapy: No - Surgical History Surgery Procedure, Year, and Place: thumb; colectomy and appy 11/23/15; IVC FILTER PLACED WITH DR. WORTHINGTON 01/28/16 [facility] - IMMEDIATELY AFTER IMPLANTATION 1.5T MRI CONDITIONAL 6-OK TO 2500G/CM (PT WILL BRING CARD WITH HER WELL) ; POWER PORT; portal vein embolization and paratial removal of liver 2015. Hx Anesthesia Reactions: No Infectious Disease History: No Infectious Disease History: Denies: Traveled Outside the [place] in Last 30 Days - Family History Known Family History: Positive: Blood Disorder - factor 5 Negative: Cardiac Disease, Hypertension - Social History Lives: With Family Alcohol Use: None Alcohol Amount: SINCE 08/2015 Hx Substance Use: No Substance Use Type: Reports: None Hx Tobacco Use: No Smoking Status (MU): Never Smoked Tobacco Review of Systems Constitutional: Negative Negative: Fever, Chills, Fatigue Eyes: Negative Negative: Photophobia, Blurred Vision, Diplopia ENT: Negative Negative: Dental Pain Cardiovascular: Negative Negative: Chest Pain Respiratory: Negative Negative: Shortness Of Breath Gastrointestinal: Negative Negative: Abdominal Pain, Vomiting, Diarrhea, Nausea Negative: incontinence Positive: Arthralgia, Decreased ROM Skin: Negative Neurological: Negative Psychological: Normal All Other Systems Reviewed And Are Negative: Yes Physical Exam Triage Information Reviewed: Yes Vital Signs On Initial Exam: Initial Vitals Temp Pulse Resp BP Pulse Ox 98.7 F 62 17 124/82 100 08/27/17 18:13 08/27/17 18:13 08/27/17 18:13 08/27/17 18:13 08/27/17 18:13 Vital Signs Reviewed: Yes Appearance: Positive: Well-Appearing, No Pain Distress, Well-Nourished Skin: Positive: Warm, Dry Head/Face: Positive: Normal Head/Face Inspection Eyes: Positive: Normal, EOMI, REFUGIO, Conjunctiva Clear ENT: Positive: Normal ENT inspection, Hearing grossly normal, Pharynx normal - mucosa moist Neck: Positive: Supple Respiratory/Lung Sounds: Positive: Breath Sounds Present Cardiovascular: Positive: Pulses are Symmetrical in both Upper and Lower Extremities - no edema Musculoskeletal: Positive: Strength/ROM Intact - Rt phalanges, wrist and elbow, Pain @ - Rt shoulder, proximal humerus, elbow sore w/ palpation - no gross deformity Neurological: Positive: Normal, Sensory/Motor Intact, Alert, Oriented to Person Place, Time, CN Intact II-III Psychiatric: Positive: Normal Diagnostics - Vital Signs Vital Signs Temp Pulse Resp BP Pulse Ox 08/27/17 18:13 98.7 F 62 17 124/82 100 - Laboratory Lab Statement: Any lab studies that have been ordered have been reviewed, and results considered in the medical decision making process. Course/Dx - Course Course Of Treatment: Pt's XR reports state no acute findings however Rt shoulder XR appears to have increased space between the humeral head and glenoid fossa/AC joint space. This along with clinical presentation correlate w / possible dislocation w/ reduction prior to arrival. Pt reports she feels like she pulled all the muscles in her shoulder but "back in position now" and pain is tolerable. Reviewed XR w/ Dr. Sevilla. Pt placed in shoulder immobilizer and d/c'd to ortho f/u this week. Pt agrees w/ plan. Reviewed danger s/sx of when to return to ED. Offered pain medication - pt declined. - Diagnoses Provider Diagnoses: Sprain of right shoulder Discharge - Discharge Plan Condition: Stable Disposition: HOME Patient Education Materials: Shoulder Dislocation (ED), Shoulder Sprain (ED) Forms: *Work Release Referrals: Jonathan Herrera MD [Medical Doctor] - Additional Instructions: Rest in shoulder immobilizer - do not remove until cleared to do so by rx specialist - call tomorrow to schedule an appointment. Apply ice and take acetaminophen as needed for pain. *If you develop numbness, tingling, weakness in arm or swelling with discoloration, return to ED
--- NOTE | 2017-08-27 19:35 | RAD ---
INDICATION: RIGHT elbow and shoulder pain post fall. COMPARISON: No relevant prior exams available on the [facility] for comparison. TECHNIQUE: AP, lateral, and oblique views RIGHT elbow. REPORT: Normal articular alignment. Negative for effusion, fracture, or appreciable arthropathic change. Unremarkable soft tissue contours. IMPRESSION: Negative radiographic exam of the RIGHT elbow.
--- NOTE | 2017-08-27 19:36 | RAD ---
Indication: RIGHT shoulder and elbow pain post fall. Comparison: No relevant prior exams available on the [facility] for comparison. Technique: Internal rotation AP, external rotation Grashey, scapular Y, axillary views RIGHT shoulder Report: Normal acromioclavicular and glenohumeral joint alignment. Concave undersurface of the acromion process. Negative for fracture. Negative for significant arthropathic change. Unremarkable soft tissue contours. IMPRESSION: No radiographic evidence for traumatic injury of the RIGHT shoulder.
[2017-08-27 20:41] VITALS: BP 100/64
== END 2017-08-27 20:06 | disposition home or self-care (01) ==
LOC: ED 18:13
DX: S43.401A Unspecified sprain of right shoulder joint, initial encounter (principal); W00.0XXA Fall on same level due to ice and snow, initial encounter; Y92.9 Unspecified place or not applicable
CPT/HCPCS: 99282

== ENCOUNTER 2017-10-02 21:09 | Inpatient (IN) | payer OTHER ==
--- OUTSIDE RECORDS SUMMARY | 2017-10-02 21:17 | XMS REPORT ---
:1960 External Reference #:[id number] Author Organization [employer] Address [address] [address] Phone [phone] Care Team Providers Name Role Phone Deana Hodges MD Primary Care Physician Unavailable Payers Type Date Identification Numbers Payment Provider Subscriber Commercial Policy Number: [id number] [employer] Kika Cano PayID: [id number] [address] [place] [address] Problems Date Description Provider Status Onset: 03/28/2017 Pelvic varices Terence Talbot M.D. 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 [employer] ETOH Use Denies alcohol use Smoking Patient has never smoked Recreational Drug Use Never Used Drugs Daily Caffeine Consumes on average 1 cup of regular coffee per day Exercise Type/Frequency Does not exercise Allergies, Adverse Reactions, Alerts Date Description Reaction Status Severity Comments 03/28/2017 IV Contrast Urticaria active IV Contrast 10/06/2016 NKDA inactive Medications Medication Date Status Form Strength Qnty SIG Indications Ordering Provider Eql Iron Active Tablets 325mg 1 tab PO Unknown Supplement 000 bid Therapy Chemo Active Unknown 000 Nadolol Active Tablets 40mg 1 by mouth Unknown 000 every day Valacyclovir HCL Active Tablets 500mg 1 by mouth Unknown 000 every day Furosemide Active Tablets 40mg 1 by mouth Unknown 000 every day Spironolactone Active Tablets 50mg 1 by mouth Unknown 000 every day Compazine Hx Tablets 10mg 1 by mouth Unknown 000 every 6 hours as needed nausea Eq Ibuprofen Hx Tablets 200mg 2 tabs PO Unknown 000 bid Xarelto Hx Tablets 20mg 1 by mouth Unknown 000 every day Zofran Hx Tablets 4mg 1 tab by Unknown 000 mouth every 6 hours as needed nausea Cetirizine HCL Hx Tablets 10mg 1 by mouth Unknown 000 every day prn sesonal allergy Imodium A-D Hx Tablets 2mg one by Unknown 000 mouth three times a day as needed for diarrhea Zofran Hx Tablets 4mg take 1 by Unknown 000 mouth twice a day as needed for nausea Avastin Hx Unknown 000 Famotidine Hx Tablets 20mg take one Unknown 000 tablet by mouth once a day prn Xeloda Hx Unknown 000 Medications Administered in Office Medication Date Status Form Strength Qnty SIG Indications Ordering Provider Celestone 3 mg Administered Injection Georgina and 3mg 012 Moon gottlieb M.D. Celestone 3 mg Administered Injection Georgina and 3mg 012 Moon gottlieb M.D. Vital Signs Date Vital Result Comment 09/25/2017 Height 64 inches 5'4" Weight 160.00 lb BP Systolic 110 mmHg BP Diastolic 70 mmHg Respiratory Rate 15 /min Body Temperature 97.5 F Pain Level 0 BMI (Body Mass Index) 27.5 kg/m2 08/28/2017 Height 64 inches 5'4" Weight 160.00 lb Heart Rate 75 /min BP Systolic 129 mmHg BP Diastolic 84 mmHg Body Temperature 97.2 F BMI (Body Mass Index) 27.5 kg/m2 05/25/2017 Heart Rate 100 /min BP Systolic 130 mmHg BP Diastolic 88 mmHg Respiratory Rate 16 /min Body Temperature 98.8 F 05/04/2017 Heart Rate 72 /min BP Systolic 130 mmHg BP Diastolic 80 mmHg Respiratory Rate 18 /min Body Temperature 97.6 F 04/25/2017 Heart Rate 72 /min BP Systolic 124 mmHg BP Diastolic 82 mmHg Respiratory Rate 18 /min Body Temperature 98.4 F 04/17/2017 Weight 170.00 lb Heart Rate 76 /min BP Systolic 150 mmHg BP Diastolic 90 mmHg Respiratory Rate 18 /min Body Temperature 98.5 F 03/28/2017 Height 64 inches 5'4" Weight 162.00 lb Heart Rate 96 /min BP Systolic Sitting 130 mmHg Rue reg cuff BP Diastolic Sitting 80 mmHg Rue reg cuff Respiratory Rate 18 /min BMI (Body Mass Index) 27.8 kg/m2 10/06/2016 Height 64 inches 5'4" Weight 145.00 lb Heart Rate 100 /min BP Systolic 130 mmHg BP Diastolic 80 mmHg Respiratory Rate 16 /min Body Temperature 98.1 F BMI (Body Mass Index) 24.9 kg/m2 01/27/2016 Height 64 inches 5'4" Weight 155.00 lb Heart Rate 88 /min BP Systolic Sitting 126 mmHg BP Diastolic Sitting 84 mmHg BMI (Body Mass Index) 26.6 kg/m2 Results Test Date Test Result H/L Range Note Laboratory test 05/28/2017 Surgical Interface SEE RESULT BELOW 1 finding Order Laboratory test 07/17/2016 Cytology Non-Gynecology Teacher SEE RESULT BELOW 2 finding Basic Metabolic Panel 01/28/2016 Sodium 137 mmol/L 133-145 Potassium 4.2 mmol/L 3.5-5.0 Chloride 106 mmol/L 101-111 Co2 Carbon Dioxide 22 mmol/L 22-32 Anion Gap 9 mmol/L 2-11 Glucose 103 mg/dL High 70-100 Blood Urea Nitrogen 11 mg/dL 6-24 Creatinine 0.96 mg/dL High 0.51-0.95 BUN/Creatinine Ratio 11.5 8-20 Calcium 9.8 mg/dL 8.6-10.3 Egfr Non- 60.3 >60 Egfr 77.6 >60 3 1 SEE RESULT BELOW Name: KIKA CANO : [address]: Min Philip MD Acct: [id number] Unit: [id number] AGE: 56 Location: ENDO Re05/28/17 SEX: F Status: REG REF SPEC: [id number] LEA: 05/28/[address]: Min Philip MD REQ: [id number] RECD: 05/28/17 STATUS: CHEN WOLFE DR: Deana Richmond MD _ ORDERED: LEVEL 4 FINAL DIAGNOSIS Colon, random, biopsy: -- Benign colonic mucosa with no significant pathologic abnormalities. -- No evidence of microscopic colitis. CLINICAL HISTORY No history given POST-OPERATIVE DIAGNOSIS Colonoscopy to ileum - no mass, cancer; colon with edema not colitis, biopsy taken. Conclusions/Plan: Follow-up biopsy, bleeding easily GROSS DESCRIPTION The specimen is received in formalin labeled, Random Colon Biopsies, and consists of a 0.3 x 0.2 x 0.2 cm clemente-white irregular to polypoid soft tissue fragment, which is entirely submitted in one cassette. Signed (signature on file) Evelia Yuan MD 11/10 1027 END OF REPORT * ML=Testing performed at Main Lab DEPARTMENT OF PATHOLOGY, [address] [place] [address] Perez Stern M.D. Director [facility] # [id number] 2 SEE RESULT BELOW Name: KIKA CANO : [address]: Rambo Newell MD Acct: [id number] Unit: [id number] AGE: 56 Location: SP Re07/17/16 SEX: F Status: REG REF SPEC: [id number] LEA: 07/17/[address] [facility] [address]: Terence Talbot MD REQ: [id number] RECD: 07/17/16 STATUS: CHEN WOLFE DR: Rambo Newell MD _ ORDERED: FN ASP DEEP, FNA Imme [facility], LEVEL IV, FNA IMMEDIATE S FINAL DIAGNOSIS Liver, left lobe, Ultrasound guided, fine needle aspiration: -- Malignant- metastatic colonic adenocarcinoma. The aspirate smears demonstrate classic features of metastatic colonic adenocarcinoma including cohesive cytologically malignant epithelial elements with an acute inflammatory background. It reactive liver parenchyma seen in the background as well. A cell block was prepared in the evaluation of this specimen. Additional studies for therapeutic or prognostic markers can be performed upon request on archival cell block material. Smears and cell block reveal similar findings. Dr. Yuan has reviewed this case and concurs. 1. LIVER - US GUIDE LIVER LESION FINE NEEDLE ASPIRATION CLINICAL HISTORY Left liver lesion, history of colon cancer. IMMEDIATE INTERPRETATION Pass 1-inadequate, pass 2-adequate CONTINUED ON NEXT PAGE * ML=Testing performed at Main Lab DEPARTMENT OF PATHOLOGY, [facility] [place] [id number] Perez Stern M.D. Director [facility] # [id number] RUN DATE: 07/17/16 [facility] LAB LIVE PAGE 2 Patient: KIKA CANO Yenni [id number] (Continued) GROSS DESCRIPTION (Continued) GROSS DESCRIPTION Ultrasound guided, fine needle aspiration x 2 passes with 4 Alcohol fixed slide(s) and needle rinse in formalin for cell block. Signed (signature on file) Perez Stern MD 1340 END OF REPORT * ML=Testing performed at Main Lab DEPARTMENT OF PATHOLOGY, [facility] [place], [place] [address] Perez Stern M.D. Director [facility] # [id number] 3 Because ethnic data is not always readily available, this report includes an eGFR for both -Americans and non- Americans. The National Kidney Disease Education Program (NKDEP) does not endorse the use of the MDRD equation for patients that are not between the ages of 18 and 70, are , have extremes of body size, muscle mass, or nutritional status, or are non- or non-. According to the National Kidney Foundation, irrespective of diagnosis, the stage of the disease is based on the level of kidney function: Stage Description GFR(mL/min/1.73 m(2)) 1 Kidney damage with normal or decreased GFR 90 2 Kidney damage with mild decrease in GFR 60-89 3 Moderate decrease in GFR 30-59 4 Severe decrease in GFR 15-29 5 Kidney failure <15 (or dialysis) Procedures Date CPT Code Description Status 05/28/2017 Colonoscopy Completed 05/04/2017 87962 Anoscopy Completed 01/28/2016 45813 Insertion Intravasular Vena Cava Filter,Endovascular Completed Approach 07/20/2015 59208 Colectomy Partial W/End Colostomy & Close Distal Completed Segment 11/08/2011 04953 Inject Tendon Sheath Or Ligament Aponeurosis Eg Plantar Completed Fascia 10/09/2011 11889 Rad Exam; Fingers Completed 09/25/2011 77562 Rad Exam; Fingers Completed 09/11/2011 60159 Rad Exam; Fingers Completed 08/31/2011 22049 Percutaneous Skeletal Fixation Of Unstable Phalangeal Completed Shaft FX 08/31/2011 46845 Percutaneous Skeletal Fixation Of Unstable Phalangeal Completed Shaft FX 08/29/2011 61173 Rad Exam; Fingers Completed Encounters Type Date Location Provider CPT E/M Dx Office Visit 08/28/2017 [place] [address] S43.004A 2:15p Of C.M.A. Office Visit 05/25/2017 [facility] Bandar Richmond, 51356 C19 1:00p Of [place] DESAI Z93.3 Office Visit 05/17/2017 7:00a [facility] Anthony Reina, 09885 K94.01 Of [place] PA Office Visit 05/04/2017 3:15p [place] [address] C19 Of Front Office Coordinator Office Visit 04/25/2017 2:45p [facility] [place] [address] C19 Of [facility] C78.7 R58 Office Visit 04/17/2017 8:45a [facility] [place] [address] C19 Front Office Coordinator C78.7 Office Visit 03/28/2017 1:30p [facility] Terence Talbot, 79214 I86.2 Of Front Office Coordinator M.D. Office Visit 10/06/2016 1:45p [facility] Bandar Richmond, 11557 C19 [facility] C78.7 Office Visit 04/11/2016 1:40p [facility] Of Rambo Newell M.D. 72045 C19 Front Office Coord[facility] [place] C78.7 Office Visit 01/27/2016 1:00p [facility] Vascular Medicine Terence Talbot, 88034 I82.402 Of Front Office Coordinator M.D. Office Visit 07/27/2015 1:35p [facility] Apolonia Garcia, 01273 K65.8 Assoc, Hospitalists M.D. R06.82 C18.9 I82.402 Office Visit 07/26/2015 1:34p [facility] [address] K65.8 Hospitalists R06.82 C18.9 I82.402 Office Visit 07/25/2015 1:34p [facility] Annette Bond, 53244 K65.8 Hospitalists M.D. R06.82 C18.9 I82.402 Office Visit 07/24/2015 1:33p [facility] Annette Bond, 17408 K65.8 Hospitalists M.D. R06.82 C18.9 A41.50 Office Visit 07/24/2015 1:32p [facility] Gregory Abreu D.O. 27565 K65.8 Hospitalists C18.9 Office Visit 07/23/2015 1:31p [facility] Gregory Abreu, 16779 J95.821 Hospitalists D.OHuey C18.9 K65.8 Office Visit 07/22/2015 1:31p [facility] Gregory Abreu, 88371 J95.821 Hospitalists Lynette C18.9 K65.8 F05 Office Visit 07/21/2015 1:30p [facility], 58972 J95.821 Assoc, Hospitalists Donal A41.50 K65.8 C18.9 Office Visit 07/20/2015 1:30p [facility], 86672 J95.821 Assoc, Hospitalирина [place] K65.8 A41.50 C18.9 Office Visit 07/19/2015 1:29p [facility], 96816 J95.821 Assoc, Hospitalists Donal K65.8 C18.9 A41.50 Office Visit 12/19/2011 8:00a [facility] Georgina Chambers, 20970 816.01 Of [place] Office Visit 08/29/2011 8:30a [facility] Ramu Bates 70563 816.01 Of Samaria Shell Plan of Care Future Appointment(s):11/13/2017 3:00 pm - Jonathan Herrera MD at [facility] Of [place]09/25/2017 - Jonathan Herrera MDS43.004A Unspecified dislocation of right shoulder joint, init encntrFollow up:Follow up: 6 weeks
[2017-10-02] MEDS ORDERED: NS 0.9% 1000 ML* 1,000 ML IV ONE (21:31)
[2017-10-02 23:10] LABS: INR 2.54 (0.77-1.02)
[2017-10-02 23:17] LABS: EGFR Non-African American 44.2 (>60)
[2017-10-02 23:36] LABS: Hematocrit 23 % (35-47); Hemoglobin 7.7 g/dl (12.0-16.0); Mean Corpuscular HGB Conc 34 g/dl (31-36); Mean Corpuscular Hemoglobin 33 pg (27-31); Mean Corpuscular Volume 97 fL (80-97); Mean Platelet Volume 10 um3 (7.4-10.4); Platelet Count 43 10^3/ul (150-450); Red Blood Count 2.33 10^6/ul (4.0-5.4); Red Cell Distribution Width 18 % (10.5-15); White Blood Count 6.8 10^3/ul (3.5-10.8)
[2017-10-02 23:37] LABS: Monocytes % 2 % (0-13)
--- NOTE | 2017-10-03 00:36 | ED ---
Sherry Islas Gabriel, scribed for Rogelio Sanchez MD on 10/02/17 at 2129 . GI/ HPI - HPI Summary HPI Summary: This patient is a 57 year old F BIBA to [facility] accompanied by her daughter with a chief complaint of bleeding from her colostomy site that began around 1900 today. Pt was lying on the couch sleeping when her bag filled up with blood and "burst", she has been see in the hospital multiple times before for this same reason. Patient reports dizziness. Patient denies pain. Patient is currently on Chemo for her colon cancer but denies metastases to her bones. Hx of colon cancer with metastases to the liver. - History of Current Complaint Time Seen by Provider: 10/02/17 21:13 Stated Complaint: GI BLEED Hx Obtained From: Patient Onset/Duration: Still Present Timing: Constant, Lasting Hours Severity: Moderate Current Severity: Moderate Location of Pain: None Associated Signs and Symptoms: Positive: Other: - dizziness, bleeding from colostomy - Additional Pertinent History Primary Care Physician: AKIN - Allergy/Home Medications Allergies/Adverse Reactions: Allergies Allergy/AdvReac Type Severity Reaction Status Date / Time MS Iodinated Diagnostic Allergy Hives Verified 09/17/17 08:26 Agents [Iodinated Diagnostic Agents] HAY FEVER Allergy Eyes Uncoded 09/17/17 08:26 Itchy/Swollen/Red/Watery PMH/Surg Hx/FS Hx/Imm Hx Endocrine/Hematology History: Reports: Hx Anemia - ON MEDICATION Denies: Hx Diabetes, Hx Systemic Lupus Erythematosus Cardiovascular History: Reports: Hx Deep Vein Thrombosis, Other Cardiovascular Problems/Disorders - DVT LEFT LEG PRESENTLY AND ONE IN 1990; LOVENOX THERPHY Denies: Hx Congestive Heart Failure, Hx Hypertension, Hx Pacemaker/ICD GI History: Reports: Other GI Disorders - 6 months of diarrhea abd pain History: Denies: Hx Dialysis, Hx Renal Disease Musculoskeletal History: Denies: Hx Rheumatoid Arthritis Sensory History: Reports: Hx Cataracts - LEFT, Hx Contacts or Glasses - READING GLASSES Denies: Hx Hearing Aid Opthamlomology History: Reports: Hx Cataracts - LEFT, Hx Contacts or Glasses - READING GLASSES Psychiatric History: Denies: Hx Panic Disorder - Cancer History Cancer Type, Location and Year: colon cancer with mets to liver Hx Chemotherapy: Yes Hx Radiation Therapy: No - Surgical History Surgery Procedure, Year, and Place: thumb; colectomy and appy 07/19/15; IVC FILTER PLACED WITH DR. WORTHINGTON 01/28/16 [facility] - IMMEDIATELY AFTER IMPLANTATION 1.5T MRI CONDITIONAL 6-OK TO 2500G/CM (PT WILL BRING CARD WITH HER WELL) ; POWER PORT; portal vein embolization and paratial removal of liver 2015. Hx Anesthesia Reactions: No Infectious Disease History: Denies: Traveled Outside the [place] in Last 30 Days - Family History Known Family History: Positive: Blood Disorder - factor 5 Negative: Cardiac Disease, Hypertension - Social History Lives: With Family Alcohol Use: None Alcohol Amount: SINCE 08/2015 Hx Substance Use: No Substance Use Type: Reports: None Hx Tobacco Use: No Smoking Status (MU): Never Smoked Tobacco Review of Systems Positive: Other - bleeding from colostomy Musculoskeletal: Negative - pain Neurological: Other - dizziness All Other Systems Reviewed And Are Negative: Yes Physical Exam - Summary Physical Exam Summary: VITAL SIGNS: Reviewed. GENERAL: Patient is a well-developed and nourished female who is lying comfortable in the stretcher. Patient is not in any acute respiratory distress. Patient appears pallor. HEAD AND FACE: No signs of trauma. No ecchymosis, hematomas or skull depressions. No sinus tenderness. EYES: PERRLA, EOMI x 2, No injected conjunctiva, no nystagmus. EARS: Hearing grossly intact. Ear canals and tympanic membranes are within normal limits. MOUTH: Oropharynx within normal limits. NECK: Supple, trachea is midline, no adenopathy, no JVD, no carotid bruit, no c- spine tenderness, neck with full ROM. CHEST: Symmetric, no tenderness at palpation LUNGS: Clear to auscultation bilaterally. No wheezing or crackles. CVS: Regular rate and rhythm, S1 and S2 present, no murmurs or gallops appreciated. ABDOMEN: colostomy in place. There 2 small areas of bleeding at the junction between the skin and the colon with severe active bleeding. 1 at the 12 oclock and one at 8 oclock EXTREMITIES: FROM in all major joints, no edema, no cyanosis or clubbing. NEURO: Alert and oriented x 3. No acute neurological deficits. Speech is normal and follows commands. SKIN: Dry and warm Triage Information Reviewed: Yes Vital Signs Reviewed: Yes Procedures - Procedure Summary Procedure Summary: using 2% lido for local anesthesia and nylon 4 sutures, I applied 2 figure 8 shaped stiches to the spots with bleeding. After the suture there was good hemostasis at both sites. Diagnostics - Laboratory Result Diagrams: 10/02/17 22:45 10/02/17 22:45 Lab Statement: Any lab studies that have been ordered have been reviewed, and results considered in the medical decision making process. GIGU Course/Dx - Course Assessment/Plan: This patient is a 57 year old F BIBA to [facility] accompanied by her daughter with a chief complaint of bleeding from her colostomy site that began around 1900 today. Pt was lying on the couch sleeping when her bag filled up with blood and burst, she has been see in the hospital multiple times before for this same reason. Patient reports dizziness. Patient denies pain. Patient is currently on Chemo for her colon cancer but denies metastases to her bones. Hx of colon cancer with metastases to the liver. Test results with no significant abnormalities except for a low H&H. In the ED course the patient was given IV fluids. Dx stomal bleeding, acute blood loss symptomatic, hypotension. H&H was significant low in comparison to this morning. There was 5 point drop from earlier today which is being displayed symptomatically by dizziness and hypotension. Patient will be admitted for blood transfusion and observation. We discussed patient care with Dr. Bond and they accept for admittance. Patient will be admitted to Dr. Bond. The patient is agreeable with this plan. - Diagnoses Provider Diagnoses: Stomal bleeding, Symptomatic acute blood loss , Hypotension - Physician Notifications Discussed Care Of Patient With: Annette Bond Time Discussed With Above Provider: 00:08 Instructed by Provider To: Admit As Inpatient - Critical Care Time Critical Care Time: 30-74 min Discharge - Discharge Plan Condition: Fair Disposition: ADMITTED TO [facility] Referrals: Deana Hodges MD [Primary Care Provider] - The documentation as recorded by the Sherry benitez Gabriel accurately reflects the service I personally performed and the decisions made by me, Rogelio Sanchez MD.
[2017-10-03] MEDS ORDERED: Phytonadione Oral Solution* 5 MG/25 ML UDC PO ONE (00:45)
[2017-10-03] MEDS ORDERED: Ondansetron ODT TAB* 4 MG PO PRN (01:24)
[2017-10-03 03:58] LABS: Hematocrit 26 % (35-47); Hemoglobin 8.9 g/dl (12.0-16.0); Mean Corpuscular HGB Conc 34 g/dl (31-36); Mean Corpuscular Hemoglobin 32 pg (27-31); Mean Corpuscular Volume 93 fL (80-97); Mean Platelet Volume 10 um3 (7.4-10.4); Platelet Count 29 10^3/ul (150-450); Red Blood Count 2.79 10^6/ul (4.0-5.4); Red Cell Distribution Width 18 % (10.5-15); White Blood Count 6.9 10^3/ul (3.5-10.8)
[2017-10-03] MEDS: NS 0.9% 1000 ML* 1,000 ML IV SCH ×2 (04:53→16:26)
[2017-10-03] MEDS ORDERED: NS 0.9% 1000 ML* 1,000 ML IV ONE (05:37)
[2017-10-03] MEDS ORDERED: Famotidine TAB* 20 MG PO SCH (09:00)
[2017-10-03 09:11] LABS: EGFR Non-African American 41.1 (>60)
[2017-10-03 09:27] LABS: ABS Basophils 0 10^3/ul (0-0.2); ABS Eosinophils 0 10^3/ul (0-0.6); ABS Lymphocytes 0.5 10^3/ul (1.0-4.8); ABS Monocytes 0.6 10^3/ul (0-0.8); ABS Neutrophils 5.8 10^3/ul (1.5-7.7); ABS Nucleated RBC 0 10^3/ul; Eosinophil % 0.2 % (0-6); Hematocrit 26 % (35-47); Hemoglobin 8.9 g/dl (12.0-16.0); Mean Corpuscular HGB Conc 35 g/dl (31-36); Mean Corpuscular Hemoglobin 32 pg (27-31); Mean Corpuscular Volume 93 fL (80-97); Mean Platelet Volume 10 um3 (7.4-10.4); Nucleated Red Blood Cells % 0.1; Platelet Count 41 10^3/ul (150-450); Red Blood Count 2.78 10^6/ul (4.0-5.4); Red Cell Distribution Width 19 % (10.5-15); White Blood Count 6.8 10^3/ul (3.5-10.8)
--- NOTE | 2017-10-03 09:37 | PN ---
Progress Note - Progress Note Date of Service: 10/03/17 SOAP: Subjective: feeling much better than last night. no further arya blood in ostomy. + epistaxis, started ~3 days ago. no longer dizzy. Objective: Vital Signs Temp Pulse Resp BP Pulse Ox 98.3 F 73 17 107/66 97 10/03/17 08:00 10/03/17 09:15 10/03/17 09:15 10/03/17 09:15 10/03/17 09:15 perr eomi icteric op moist blood crusted nares CTA bl s1 s2 nl soft, stump pink, 2 black sutures seen through bag no le edema A+O x 3 nonfocal neurological exam Laboratory Results - last 24 hr 10/02/17 10/02/17 10/02/17 22:45 22:45 22:45 WBC 6.8 RBC 2.33 L Hgb 7.7 L Hct 23 L MCV 97 MCH 33 H MCHC 34 RDW 18 H Plt Count 43 L MPV 10 Neut % (Auto) Lymph % (Auto) [place] % (Auto) Eos % (Auto) Baso % (Auto) Absolute Neuts (auto) 6.0 Absolute Lymphs (auto) Absolute Monos (auto) Absolute Eos (auto) Absolute Basos (auto) Absolute Nucleated RBC Immature Gran % 10 H Neutrophils % 77 Band Neutrophils % 8 Lymphocytes % 9 L Monocytes % 2 Eosinophils % 2 Basophils % 0 Metamyelocytes % 1 Myelocytes % 1 Nucleated RBC % Abs Neuts (Manual) 5.2 Abs Monocytes (Manual) 0.1 Absolute Eos (Manual) 0.1 Abs Basophils (Manual) 0 Nucleated RBCs/100 WBC 1 H Toxic Granulation 1+ Normal RBC Morphology Normal INR (Anticoag Therapy) 2.54 H APTT 38.8 H Sodium 136 Potassium 3.5 Chloride 110 Carbon Dioxide 20 L Anion Gap 6 BUN 14 Creatinine 1.25 H Est GFR ( Amer) 56.8 Est GFR (Non-Af Amer) 44.2 BUN/Creatinine Ratio 11.2 Glucose 126 H Calcium 7.1 L Total Bilirubin 4.20 H AST 25 ALT 20 Alkaline Phosphatase 113 H Total Protein 3.5 L Albumin 1.8 L Globulin 1.7 L Albumin/Globulin Ratio 1.1 Blood Type Antibody Screen Crossmatch 10/02/17 10/03/17 10/03/17 22:45 03:40 08:42 WBC 6.9 RBC 2.79 L Hgb 8.9 L Hct 26 L MCV 93 MCH 32 H MCHC 34 RDW 18 H Plt Count 29 L MPV 10 Neut % (Auto) Lymph % (Auto) [place] % (Auto) Eos % (Auto) Baso % (Auto) Absolute Neuts (auto) Absolute Lymphs (auto) Absolute Monos (auto) Absolute Eos (auto) Absolute Basos (auto) Absolute Nucleated RBC Immature Gran % Neutrophils % Band Neutrophils % Lymphocytes % Monocytes % Eosinophils % Basophils % Metamyelocytes % Myelocytes % Nucleated RBC % Abs Neuts (Manual) Abs Monocytes (Manual) Absolute Eos (Manual) Abs Basophils (Manual) Nucleated RBCs/100 WBC Toxic Granulation Normal RBC Morphology INR (Anticoag Therapy) APTT Sodium 133 Potassium Chloride 111 Carbon Dioxide 17 L Anion Gap BUN 22 Creatinine 1.33 H Est GFR ( Amer) 52.9 Est GFR (Non-Af Amer) 41.1 BUN/Creatinine Ratio 16.5 Glucose 259 H Calcium 6.7 L Total Bilirubin AST ALT Alkaline Phosphatase Total Protein Albumin Globulin Albumin/Globulin Ratio Blood Type O Positive Antibody Screen Negative Crossmatch See Detail 10/03/17 08:42 WBC 6.8 RBC 2.78 L Hgb 8.9 L Hct 26 L MCV 93 MCH 32 H MCHC 35 RDW 19 H Plt Count 41 L MPV 10 Neut % (Auto) 84.3 H Lymph % (Auto) 7.0 L [place] % (Auto) 8.3 Eos % (Auto) 0.2 Baso % (Auto) 0.2 Absolute Neuts (auto) 5.8 Absolute Lymphs (auto) 0.5 L Absolute Monos (auto) 0.6 Absolute Eos (auto) 0 Absolute Basos (auto) 0 Absolute Nucleated RBC 0 Immature Gran % Neutrophils % Band Neutrophils % Lymphocytes % Monocytes % Eosinophils % Basophils % Metamyelocytes % Myelocytes % Nucleated RBC % 0.1 Abs Neuts (Manual) Abs Monocytes (Manual) Absolute Eos (Manual) Abs Basophils (Manual) Nucleated RBCs/100 WBC Toxic Granulation Normal RBC Morphology INR (Anticoag Therapy) APTT Sodium Potassium Chloride Carbon Dioxide Anion Gap BUN Creatinine Est GFR ( Amer) Est GFR (Non-Af Amer) BUN/Creatinine Ratio Glucose Calcium Total Bilirubin AST ALT Alkaline Phosphatase Total Protein Albumin Globulin Albumin/Globulin Ratio Blood Type Antibody Screen Crossmatch Sodium Chloride (Ns 0.9% 1000 Ml*) 1,000 mls @ 100 mls/hr IV PER RATE VICTOR M Last Admin: 10/03/17 04:53 Dose: 100 mls/hr Ondansetron HCl (Zofran Odt Tab*) 4 mg PO QID PRN PRN Reason: NAUSEA Assessment: 57 yo F w metastatic CRC on palliative xeloda/avastin, with recurrent ostomy stump bleeds, now with 5 point Hb drop with pulsating bleeders sp suture in ER. Plan: -currently hemodynamically stable with stable Hb suggesting no further bleeding. I have asked surgery to see her to confirm placement of sutures and no need for further management -hold avastin indefinitely -cont to monitor in ICU -will transfuse 1 U platelets given that she is coagulopathic with ongoing epistaxis and plts <50k -repeat INR this am -elevated bilirubin from metastatic liver disease -cont IVFs -no heparin given bleed -SCDs
[2017-10-03 09:52] LABS: INR 2.29 (0.77-1.02)
--- NOTE | 2017-10-03 10:33 | HP ---
CC: Dr. Deana Hodges; Dr. Newell * HISTORY AND PHYSICAL: DATE OF ADMISSION: 10/03/17 PRIMARY CARE PROVIDER: Dr. Deana Hodges. ONCOLOGIST: Dr. Newell. CHIEF COMPLAINT: Bleeding from around colostomy. HISTORY OF PRESENT ILLNESS: Ms. Cano is a 57-year-old female who has a known history of metastatic colon cancer with liver mets, who is on Xeloda and Avastin , who presents to the emergency room after she was noted to have profuse bleeding from around her colostomy. The patient states that at approximately 7: 30 p.m. on 10/02/17, she noted that her colostomy bag was very full. She then noticed blood leaking out from around the side of the bag. She removed the bag and was found to be profusely bleeding from an area between the ostomy itself and her skin. The patient contacted 911 and she was brought to the emergency room for evaluation. The patient had an episode similar to this in March 2017. At that time, she just needed to apply pressure and the bleeding stopped. The patient needed to have two stitches placed by the ER provider and the bleeding has since stopped. The patient, however, was noted to have a hemoglobin of 7.7 in the emergency room. She had blood work performed on the morning of 10/02/17 for her liver doctor at [facility] and, at that point, her hemoglobin was 12.2. The patient has also been hypotensive. She does state that she got up to walk to the bathroom. She noted when she got up to the bathroom, she felt okay; however, walking back, she did feel lightheaded. She denies any shortness of breath, she denies palpitations. She does note that on this past Sunday, she passed some what appeared to be old black blood and then had the now bright red blood. PAST MEDICAL HISTORY: Colon cancer with mets to liver. PAST SURGICAL HISTORY: 1. Partial colectomy with colostomy creation. 2. Partial liver resection. 3. Bile duct stents, now status post removal. 4. Appendectomy. ALLERGIES: IV CONTRAST DYE. MEDICATIONS: 1. Lasix 40 mg p.o. daily. 2. Spironolactone 50 mg p.o. twice daily. 3. Zofran ODT 4 mg p.o. 4 times daily p.r.n. nausea. 4. Nadolol 40 mg p.o. daily. 5. Ferrous sulfate 650 mg p.o. daily. FAMILY HISTORY: Mom is from unknown causes. Dad is also ; he had heart disease. SOCIAL HISTORY: The patient is a lifelong nonsmoker. She does not drink alcohol. She works at [employer] in the [employer]. She is . She has two children. REVIEW OF SYSTEMS: A complete 11-system review of systems is obtained. Pertinent positives and negatives are as per HPI. In addition, the patient did note some flu- like symptoms the week prior to admission with cough and diarrhea. She also complains of right shoulder pain, and states that she fell and injured her right shoulder on 08/27/17. PHYSICAL EXAMINATION GENERAL: The patient is a well-developed, middle-aged, jaundiced-appearing female lying in the stretcher, in no acute distress. VITAL SIGNS: Blood pressure 60/42, pulse 86, respirations 17, temp 97.7, O2 sat 98% on room air. HEENT: Pupils are equal and round. Extraocular muscles are intact. The patient has icteric sclera. There is no submandibular, cervical, or supraclavicular adenopathy. Thyroid is not enlarged. No thyroid nodules are noted. PULMONARY: Lungs are clear to auscultation bilaterally. CARDIAC: Normal S1, S2. Regular rate and rhythm. Heart sounds are quite distant. There is no lower extremity edema. ABDOMEN: Bowel sounds are present. Abdomen is soft, nontender, and nondistended. The patient's ostomy appliance is not removed at this time, but the bag is empty. MUSCULOSKELETAL: There is no cyanosis or clubbing of the digits. There is full active range of motion of all 4 extremities. SKIN: Warm and dry. She has no rashes. She is jaundiced. NEURO: Cranial nerves II through XII are grossly intact. Sensation is intact to light touch throughout. Strength is 5/5 and symmetric in both upper and lower extremities bilaterally. PSYCH: The patient is alert. She is oriented x3. Affect appears appropriate. LABORATORY DATA: WBC 6.8, hemoglobin 7.7, hematocrit 23, platelets 43. INR 2.54. Sodium 136, potassium 3.5, chloride 110, CO2 20, BUN 14, creatinine 1.25, glucose 126, calcium 7.1. Bilirubin 4.2, AST 25, ALT 20, alk phos 113, albumin 1.8. ASSESSMENT AND PLAN: Ms. Cano is a 57-year-old female who presented to the emergency room with complaints of bleeding around her ostomy and is found to have acute blood loss anemia. 1. Acute blood loss anemia. This is not a true GI bleed. Visible bleeding vessels were identified by Dr. Sanchez and were able to be sutured. The patient has two mrunkt-ad-[id number] stitches in place. I do not think a GI consultation is required at this time. The patient is receiving 2 units of packed red blood cells. She will have a CBC obtained 1 hour after completing the last unit of blood. She will also have a followup CBC in the morning of 10/03/17. The patient is markedly hypotensive at this time; however, her mentation is normal and she denies feeling lightheaded or dizzy. I will monitor her blood pressure while she is receiving the 2 units of packed red blood cells; and if she does not improve her blood pressure with this, she will continue to receive boluses of normal saline. She has already received 3 L of normal saline. I suspect the patient's Avastin and possibly the Xeloda in combination with marked thrombocytopenia and elevated INR are what led to her bleeding episode. 2. Thrombocytopenia. The patient is chronically thrombocytopenic; however, her platelet currently is much worse than usual. In fact, on the morning of 02/11, the patient's platelet count was 76,000. It has since trended down to 43 ,000. I am going to hold off on transfusing platelets at this point; however, if she shows signs of continued bleeding with decreases in her platelet count, platelet transfusion can be considered. 3. Elevated INR. I suspect this is related to her underlying liver disease and , questionably, her chemotherapy agents. The patient will be given vitamin K 5 mg p.o. x1. A repeat INR will be obtained later in the morning of 10/03/17. 4. Elevated creatinine. I suspect this is from poor perfusion as the patient is quite hypotensive secondary to volume loss. Followup BMP will be obtained later in the morning of 10/03/17. As mentioned above, the patient has already received 3 L of normal saline and will be receiving 2 units of packed red blood cells. I suspect once her pressures and volume status are corrected, her creatinine will normalize. 5. Metastatic colon cancer. Management per Oncology. 6. Jaundice. The patient's bilirubin is elevated at 4.2. This is within the range of where she has been over the last 1 week or so, but higher than where her bilirubin has been most recently. The patient does see a liver doctor at [facility]. Further decisions will need to be made down the road about treatment options. 7. DVT prophylaxis. According to Adult Thrombosis Prophylaxis Risk Factor Assessment Guide, the patient has a total risk factor score of 3, making her high risk. SCDs alone will be utilized as DVT prophylaxis given her acute blood loss anemia. 8. Code status is full. TIME SPENT: 65 minutes were spent admitting this patient. [id number]/CPS #: [id number] TANA
--- NOTE | 2017-10-03 11:00 | PN ---
Progress Note - Progress Note Date of Service: 10/03/17 Note: I was asked by Dr. Vora to evaluate patient for colostomy bleeding. H&P reviewed, patient well known to us H/H stable, awaiting platelets transfusion today Focused exam of colostomy revealed a pink, viable ostomy with liquid stool output. There are 2 silk sutures at 1 and 9 o'clock position, secured to skin in a mattress fashion. No evidence of active bleeding. No peristomal hernias Imp/Plan: Stage IV metastatic colon cancer Colostomy bleeding, stable now after suture ligation in ED last night Continue care per medicine/oncology groups Will follow for colostomy care
--- NOTE | 2017-10-03 14:32 | PN ---
Progress Note - Progress Note Date of Service: 10/03/17 SOAP: Subjective: Patient seen and care discussed with Kyle Jean History reviewed She has not had any further bleeding-she received 2 units of PRBC's Platelets also low and she is receiving transfusion now Assessment: Hemorrhage from colostomy site-controlled with suture. Plan: Continue to follow for now
[2017-10-03 17:28] LABS: Mean Platelet Volume 9 um3 (7.4-10.4); Platelet Count 47 10^3/ul (150-450)
[2017-10-04] MEDS: NS 0.9% 1000 ML* 1,000 ML IV SCH (02:58)
[2017-10-04 06:11] LABS: INR 1.55 (0.77-1.02)
[2017-10-04 06:23] LABS: EGFR Non-African American 68.9 (>60)
[2017-10-04 06:41] LABS: ABS Basophils 0 10^3/ul (0-0.2); ABS Eosinophils 0.1 10^3/ul (0-0.6); ABS Lymphocytes 0.4 10^3/ul (1.0-4.8); ABS Monocytes 1.1 10^3/ul (0-0.8); ABS Neutrophils 5.3 10^3/ul (1.5-7.7); ABS Nucleated RBC 0 10^3/ul; Eosinophil % 1.8 % (0-6); Hematocrit 25 % (35-47); Hemoglobin 8.5 g/dl (12.0-16.0); Lymphocyte % 6.2 % (25-47); Mean Corpuscular HGB Conc 35 g/dl (31-36); Mean Corpuscular Hemoglobin 32 pg (27-31); Mean Corpuscular Volume 92 fL (80-97); Mean Platelet Volume 10 um3 (7.4-10.4); Nucleated Red Blood Cells % 0.1; Platelet Count 51 10^3/ul (150-450); Red Blood Count 2.69 10^6/ul (4.0-5.4); Red Cell Distribution Width 19 % (10.5-15)
[2017-10-04] MEDS ORDERED: Potassium Chlor TAB* 20 MEQ TAB.ER PO ONE (08:17)
[2017-10-04] MEDS: KCL 10 MEQ/50 ML IVPREMIX* 10 MEQ/50 ML BAG IV SCH ×4 (09:03→13:27)
--- NOTE | 2017-10-04 09:09 | DS ---
- Discharge Summary Admissions Date: 10/03/17 Discharge Date: 10/04/17 Discharge Diagnosis: 1. Acute Hemorrhage: Ostomy arterial bleed, esolved following suture placement x2 in ER 2. Anemia: related to bleed, s/p 2 units PRBCs 3. Thrombocytopenia: chemotherapy induced, s/p 1 single donor pack, stable 4. Cancer: Avastin on hold indefinitely, will delay further tx. until evaluated with primary oncologist 5. Portal Hypertension: hypotensive following bleed and will hold diuretics for next 5 days until seen 6. Hypokalemia: partially diluational, replacement with IV and PO Discharge Medications: Medication Instructions Recorded Confirmed Type Ferrous Sulfate TAB* 650 mg PO DAILY 01/27/16 10/03/17 History Ondansetron ODT TAB* [Zofran 4 MG 4 mg PO QID PRN 05/31/17 10/03/17 History Odt TAB*] Potassium Chlor TAB* [Klor Con ER 10 meq PO DAILY #30 tab.er 10/04/17 Rx TAB 10 MEQ*] *HOLD: naldolol, furosemide, and spironaldactone* Hospital Course: Please see admission not for full H&P, however, briefly, Ms. Cano is well known to our service due to her unfortunate diagnosis of metastatic colon cancer most recently treated with Avastin and 5-FU. She has had episodes of venous bleeding from the surrounding aspect of her ostomy over the last several months and received sutures, then was cauterized. On 10/02/16 she was seen in the office for lab drawn (follow-up on elevated bili) and mentioned another isolated episode of bleeding. A CBC that AM revealed hmg of 12. That evening however she developed acute severe bleeding into her ostomy, filling and then bursting the bag off. She applied pressure and called 911. In the ER 2 ' pulsating' sites were identified and the ER MD sutured the sites. She was admitted to the ICU for 2 units PRBCs and Vit. K due to elevated INR (likely secondary to her elevated LFTs). The following AM she had a stable hmg, however with thrombocytopenia (chemotherapy induced) <50K and active arterial bleed, she received 1 single donor pack platelets. Yesterday evening she was transferred out the ICU and has been doing well since. She cont.'s to have a slightly low BP and though she has recently been treated for portal hypertension I have recommended holding her beta-matias and diuretics. We have progressed her diet and encouraged ambulation and she feels very ready for d/c home. Ms. Cano is aware of further bleeding risk and signs or symptoms that would warrant a return to the hospital. She will follow-up with Dr. Newell on 10/09 to discuss further treatment options. At this time treatment is on hold pending recovery from acute hemorrhage. She will contact her surgeon (Dr. Richmond) regarding f/u and removal of sutures. Plan of care was reviewed at length and all questions were answered to the patient's satisfaction. >40 min spent with >50% face to face counseling.
[2017-10-04 16:50] VITALS: BP 119/62
== END 2017-10-04 16:52 | disposition home or self-care (01) | DRG 348 ==
LOC: ED 21:09 → ICU 10-03 01:22 → SSU 10-03 22:08
PROVIDERS: ADMIT Hospitalist; ATTEND Internal Medicine Hematology & Oncology
PROC: 30233R1 Transfusion of Nonautologous Platelets into Peripheral Vein, Percutaneous Approach (ICD-10-PCS; principal; 2017-10-03)
PROC: 0W3P7ZZ Control Bleeding in Gastrointestinal Tract, Via Natural or Artificial Opening (ICD-10-PCS; 2017-10-03)
PROC: 30233N1 Transfusion of Nonautologous Red Blood Cells into Peripheral Vein, Percutaneous Approach (ICD-10-PCS; 2017-10-03)
DX: K94.01 Colostomy hemorrhage (principal); D62 Acute posthemorrhagic anemia; C78.7 Secondary malignant neoplasm of liver and intrahepatic bile duct; D68.9 Coagulation defect, unspecified; D69.59 Other secondary thrombocytopenia; K76.6 Portal hypertension; I95.9 Hypotension, unspecified; C18.9 Malignant neoplasm of colon, unspecified; R17 Unspecified jaundice; R04.0 Epistaxis; T45.1X5A Adverse effect of antineoplastic and immunosuppressive drugs, initial encounter; E87.6 Hypokalemia; Y83.3 Surgical operation with formation of external stoma as the cause of abnormal reaction of the patient, or of later complication, without mention of misadventure at the time of the procedure; R94.4 Abnormal results of kidney function studies; H26.9 Unspecified cataract; Z90.49 Acquired absence of other specified parts of digestive tract; Z91.041 Radiographic dye allergy status; Y92.9 Unspecified place or not applicable; Z82.49 Family history of ischemic heart disease and other diseases of the circulatory system; Z83.2 Family history of diseases of the blood and blood-forming organs and certain disorders involving the immune mechanism
CPT/HCPCS: 36415; 80048; 80053; 82248; 85025; 85027; 85049; 85610; 85730; 86850; 86900; 86901; 86922; 87641; 99233; 99239; 99285; A9270-GY; J1642; J3480; P9035; P9040

== ENCOUNTER 2017-10-19 21:18 | Emergency (ER) | payer OTHER ==
--- OUTSIDE RECORDS SUMMARY | 2017-10-19 21:35 | XMS REPORT ---
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 Vital Signs Date Vital Result Comment 10/19/2017 Heart Rate 86 /min BP Systolic 100 mmHg BP Diastolic 68 mmHg Respiratory Rate 18 /min Body Temperature 97.6 F 09/25/2017 Height 64 inches 5'4" Weight 160.00 [...] 1 finding Order Laboratory test 07/17/2016 Cytology Non-Supervisor [employer] SEE RESULT BELOW 2 finding Basic Metabolic [...] [address]: Min Philip MD Acct: [id number] Unit: [id number] AGE: 56 Location: ENDO Re05/28/17 SEX: F Status: REG REF SPEC: [id number] LEA: 05/28/[address]: Min Philip MD REQ: [id number] RECD: 05/28/17 STATUS: CHEN WOLFE DR: Deana [...] performed at Main Lab DEPARTMENT OF PATHOLOGY, [address] [place] [address] Perez Stern M.D. Director [facility] # [id number] 2 SEE RESULT BELOW Name: KIKA CANO : [address]: Rambo Newell MD Acct: [id number] Unit: [id number] AGE: 56 Location: Re07/17/16 SEX: F Status: REG REF SPEC: [id number] LEA: 07/17/16-45 [facility] DR: Terence Talbot MD REQ: [id number] RECD: 07/17/16-999 STATUS: CHEN WOLFE DR: Rambo Newell MD _ ORDERED: FN ASP DEEP, FNA Imme St Add, LEVEL IV, FNA IMMEDIATE S FINAL DIAGNOSIS [...] performed at Main Lab DEPARTMENT OF PATHOLOGY, [facility] [place], [place] [address] Perez Stern M.D. Director [facility]AM[facility] # [id number] RUN DATE: 07/17/16 [facility] LAB LIVE PAGE 2 Patient: TRIKIKA Yenni [id number] (Continued) GROSS DESCRIPTION (Continued) GROSS DESCRIPTION Ultrasound guided, fine needle aspiration x 2 passes with 4 Alcohol fixed slide(s) and needle rinse in formalin for cell block. Signed (signature on file) Perez Stern MD 1340 END OF REPORT * ML=Testing performed at Main Lab DEPARTMENT OF PATHOLOGY, [facility] [place] [address] Perez Stern M.D. Director [facility] # [id number] 3 Because ethnic data is not always [...] Code Description Status 05/28/2017 Colonoscopy Completed 05/04/2017 28242 Anoscopy Completed 01/28/2016 99716 Insertion Intravasular Vena Cava Filter,Endovascular Completed Approach 07/20/2015 40914 Colectomy Partial W/End Colostomy & Close Distal Completed Segment 11/08/2011 01254 Inject Tendon Sheath Or Ligament Aponeurosis Eg Plantar Completed Fascia 10/09/2011 21854 Rad Exam; Fingers Completed 09/25/2011 83145 Rad Exam; Fingers Completed 09/11/2011 74538 Rad Exam; Fingers Completed 08/31/2011 95925 Percutaneous Skeletal Fixation Of Unstable Phalangeal Completed Shaft FX 08/31/2011 71787 Percutaneous Skeletal Fixation Of Unstable Phalangeal Completed Shaft FX 08/29/2011 64233 Rad Exam; Fingers Completed Encounters Type Date Location Provider CPT E/M Dx Office Visit 10/03/2017 [facility] Bandar Richmond, [address]001 K94.01 7:00a Of [place] DESAI Office Visit 10/03/2017 [facility] Solis Jean, 87435 K94.01 7:00a Of [place] Office Visit 09/25/2017 [facility] [place] [address] S43.004A 1:30p Of [facility] Office Visit 08/28/2017 [facility] [place] [address] S43.004A 2:15p Of [facility] Office Visit 05/25/2017 [facility] Bandar Richmond, 96388 C19 1:00p Of [facility] Z93.3 Office Visit 05/17/2017 7:00a [facility] Anthony Reina, 85548 K94.01 Of [facility] [place] Office Visit 05/04/2017 3:15p [facility] [place] [address] C19 Of [place] Duster Winder Office Visit 04/25/2017 2:45p [facility] [place] [address] C19 Of [facility] C78.7 R58 Office Visit 04/17/2017 8:45a [facility] [place] [address] C19 [place] C78.7 Office Visit 03/28/2017 1:30p [facility] Terence Talbot, 76449 I86.2 Of [place] M.Chapito Office Visit 10/06/2016 1:45p [facility] Richmond, 563[address] C19 [facility] C78.7 Office Visit 04/11/2016 1:40p [facility] Of Rambo Newell M.D. 88321 C19 [facility] [place] C78.7 Office Visit 01/27/2016 1:00p [facility] Vascular Medicine Terence Talbot, 60658 I82.402 Of [place] Office Visit 07/27/2015 1:35p [facility] Apolonia Garcia, 22880 K65.8 Assoc,pc Hospitalists M.D. R06.82 C18.9 I82.402 Office Visit 07/26/2015 1:34p [facility] [address] K65.8 Hospitalists R06.82 C18.9 I82.402 Office Visit 07/25/2015 1:34p [facility] Annette Bond, 71487 K65.8 Hospitalists M.Chapito R06.82 C18.9 I82.402 Office Visit 07/24/2015 1:33p [facility] Annette Bond, 49919 K65.8 Hospitalists MHueyD. R06.82 C18.9 A41.50 Office Visit 07/24/2015 1[facility]p [facility] Artemio Menard.O. 73076 K65.8 Hospitalists C18.9 Office Visit 07/23/2015 1:31p [facility], Gregory Abreu, 02941 J95.821 Hospitalists D.O. C18.9 K65.8 Office Visit 07/22/2015 1:31p [facility], Gregory Abreu, 24453 J95.821 Hospitalists D.O. C18.9 K65.8 F05 Office Visit 07/21/2015 1:30p [facility], 14879 J95.821 Assoc, Hospitalists Donal A41.50 K65.8 C18.9 Office Visit 07/20/2015 1:30p [facility], 44720 J95.821 Assoc, Hospitalists Donal K65.8 A41.50 C18.9 Office Visit 07/19/2015 1:29p [facility], 24911 J95.821 Assoc, Hospitalists Donal K65.8 C18.9 A41.50 Office Visit 12/19/2011 8:00a [facility] Georgina Chambers, 79375 816.01 Of [place] Office Visit 08/29/2011 8:30a [facility] Ramu Bates 68244 816.01 Of Samaria Shell Plan of Care Future Appointment(s):11/02/2017 1:30 pm - Bandar Richmond [facility] at [facility]/23/2017 3:00 pm - Rambo Newell M.D. at [facility]/20/2018 3:00 pm - oJnathan Herrera MD at [facility] Of [facility]10/19/2017 - Bandar Richmond MDK94.01 Colostomy hemorrhageFollow up:2 weeks
[2017-10-19 22:54] LABS: ABS Basophils 0.1 10^3/ul (0-0.2); ABS Eosinophils 0.2 10^3/ul (0-0.6); ABS Lymphocytes 0.9 10^3/ul (1.0-4.8); ABS Monocytes 1.5 10^3/ul (0-0.8); ABS Neutrophils 9.5 10^3/ul (1.5-7.7); ABS Nucleated RBC 0 10^3/ul; Hematocrit 31 % (35-47); Hemoglobin 10.1 g/dl (12.0-16.0); Lymphocyte % 7.1 % (25-47); Mean Corpuscular HGB Conc 33 g/dl (31-36); Mean Corpuscular Hemoglobin 31 pg (27-31); Mean Corpuscular Volume 96 fL (80-97); Mean Platelet Volume 9 um3 (7.4-10.4); Nucleated Red Blood Cells % 0.1; Platelet Count 172 10^3/ul (150-450); Red Blood Count 3.25 10^6/ul (4.0-5.4); Red Cell Distribution Width 20 % (10.5-15); White Blood Count 12.1 10^3/ul (3.5-10.8)
[2017-10-19 23:06] LABS: INR 1.06 (0.77-1.02)
[2017-10-19 23:10] LABS: EGFR Non-African American 56.5 (>60)
[2017-10-20 00:16] VITALS: BP 102/58
--- NOTE | 2017-10-20 00:23 | ED ---
Gokul Islas Sixian, scribed for Roberto Gonzalez on 10/19/17 at 2234 . GI/ HPI - HPI Summary HPI Summary: This patient is a 57 year old F presenting to ED with a chief complaint of stoma bleeding since 2100 today. The pt reports a total of 6 bags of blood with clots in her colostomy bag. The patient rates the pain 0/10 in severity. Symptoms aggravated and alleviated by nothing. Patient reports feeling her blood move across her stomach into the bag. The pt had colon cancer that metastasized to her liver and was treated with chemotherapy when the bleeding started. - History of Current Complaint Chief Complaint: EDBleedingDisorder Time Seen by Provider: 10/19/17 22:17 Stated Complaint: BLEEDING FROM STOMA Hx Obtained From: Patient Onset/Duration: Started Hours Ago Timing: Constant, Lasting Hours Pain Intensity: 0 Aggravating Factor(s): Nothing Alleviating Factor(s): Nothing - Additional Pertinent History Primary Care Physician: AKIN - Allergy/Home Medications Allergies/Adverse Reactions: Allergies Allergy/AdvReac Type Severity Reaction Status Date / Time Iodinated Contrast- Oral and Allergy Hives Verified 10/03/17 01:42 IV Dye HAY FEVER Allergy Eyes Uncoded 09/17/17 08:26 Itchy/Swollen/Red/Watery PMH/Surg Hx/FS Hx/Imm Hx Endocrine/Hematology History: Reports: Hx Anemia - ON MEDICATION Denies: Hx Diabetes, Hx Systemic Lupus Erythematosus Cardiovascular History: Reports: Hx Deep Vein Thrombosis, Other Cardiovascular Problems/Disorders - DVT LEFT LEG PRESENTLY AND ONE IN 1990; LOVENOX THERPHY Denies: Hx Congestive Heart Failure, Hx Hypertension, Hx Pacemaker/ICD GI History: Reports: Hx Ileostomy, Other GI Disorders - 6 months of diarrhea abd pain, colon CA History: Denies: Hx Dialysis, Hx Renal Disease Musculoskeletal History: Denies: Hx Rheumatoid Arthritis Sensory History: Reports: Hx Cataracts - LEFT, Hx Contacts or Glasses Denies: Hx Hearing Aid Opthamlomology History: Reports: Hx Cataracts - LEFT, Hx Contacts or Glasses Psychiatric History: Denies: Hx Panic Disorder - Cancer History Cancer Type, Location and Year: colon cancer with mets to liver Hx Chemotherapy: Yes Hx Radiation Therapy: No - Surgical History Surgery Procedure, Year, and Place: thumb; colectomy and appy 07/19/15; IVC FILTER PLACED WITH DR. WORTHINGTON 01/28/16 [facility] - IMMEDIATELY AFTER IMPLANTATION 1.5T MRI CONDITIONAL 6-OK TO 2500G/CM (PT WILL BRING CARD WITH HER WELL) ; POWER PORT; portal vein embolization and paratial removal of liver 2015. Hx Anesthesia Reactions: No Infectious Disease History: No Infectious Disease History: Denies: Traveled Outside the [place] in Last 30 Days - Family History Known Family History: Positive: Blood Disorder - factor 5 Negative: Cardiac Disease, Hypertension - Social History Alcohol Use: None Alcohol Amount: SINCE 08/2015 Hx Substance Use: No Substance Use Type: Reports: None Hx Tobacco Use: No Smoking Status (MU): Never Smoked Tobacco Review of Systems Negative: Fever Positive: other - bleeding in her colostomy bag All Other Systems Reviewed And Are Negative: Yes Physical Exam - Summary Physical Exam Summary: Appearance: Well appearing, no pain distress Skin: warm, dry, reflects adequate perfusion Head/face: normal Eyes: EOMI, REFUGIO ENT: normal Neck: supple, non-tender Respiratory: CTA, breath sounds present Cardiovascular: RRR, pulses symmetrical Abdomen: colostomy bag on the left side of her abdomen. no active bleeding Bowel: present Musculoskeletal: normal, strength/ROM intact Neuro: normal, sensory motor intact, A&Ox3 Triage Information Reviewed: Yes Vital Signs On Initial Exam: Initial Vitals Temp Pulse Resp BP Pulse Ox 98 F 87 16 93/60 96 10/19/17 21:21 10/19/17 21:21 10/19/17 21:21 10/19/17 21:21 10/19/17 21:21 Vital Signs Reviewed: Yes Diagnostics - Vital Signs Vital Signs Temp Pulse Resp BP Pulse Ox 10/19/17 21:21 98 F 87 16 93/60 96 - Laboratory Lab Results: Lab Results 10/19/17 10/19/17 10/19/17 Range/Units 22:42 22:42 22:42 WBC 12.1 H (3.5-10.8) 10^3/ul RBC 3.25 L (4.0-5.4) 10^6/ul Hgb 10.1 L (12.0-16.0) g/dl Hct 31 L (35-47) % MCV 96 (80-97) fL MCH 31 (27-31) pg MCHC 33 (31-36) g/dl RDW 20 H (10.5-15) % Plt Count 172 (150-450) 10^3/ul MPV 9 (7.4-10.4) um3 Neut % (Auto) 78.1 (38-83) % Lymph % (Auto) 7.1 L (25-47) % [place] % (Auto) 12.2 H (0-7) % Eos % (Auto) 2.0 (0-6) % Baso % (Auto) 0.6 (0-2) % Absolute Neuts (auto) 9.5 H (1.5-7.7) 10^3/ul Absolute Lymphs (auto) 0.9 L (1.0-4.8) 10^3/ul Absolute Monos (auto) 1.5 H (0-0.8) 10^3/ul Absolute Eos (auto) 0.2 (0-0.6) 10^3/ul Absolute Basos (auto) 0.1 (0-0.2) 10^3/ul Absolute Nucleated RBC 0 10^3/ul Nucleated RBC % 0.1 INR (Anticoag Therapy) 1.06 H (0.77-1.02) APTT 25.9 L (26.0-36.3) seconds Sodium 133 (133-145) mmol/L Potassium 3.9 (3.5-5.0) mmol/L Chloride 103 (101-111) mmol/L Carbon Dioxide 24 (22-32) mmol/L Anion Gap 6 (2-11) mmol/L BUN 8 (6-24) mg/dL Creatinine 1.01 H (0.51-0.95) mg/dL Est GFR ( Amer) 72.7 (>60) Est GFR (Non-Af Amer) 56.5 (>60) BUN/Creatinine Ratio 7.9 L (8-20) Glucose 133 H (70-100) mg/dL Calcium 8.4 L (8.6-10.3) mg/dL Total Bilirubin 2.30 H (0.2-1.0) mg/dL AST 63 H (13-39) U/L ALT 40 (7-52) U/L Alkaline Phosphatase 352 H (34-104) U/L Total Protein 5.9 L (6.4-8.9) g/dL Albumin 2.7 L (3.2-5.2) g/dL Globulin 3.2 (2-4) g/dL Albumin/Globulin Ratio 0.8 L (1-3) Result Diagrams: 10/19/17 22:42 10/19/17 22:42 Lab Statement: Any lab studies that have been ordered have been reviewed, and results considered in the medical decision making process. Re-Evaluation - Re-Evaluation First Eval Re-Evaluation Time: 22:30 Comment: No active bleeding, blood clots present in the colostomy bag. GIGU Course/Dx - Course Assessment/Plan: This patient is a 57 year old F presenting to ED with a chief complaint of stoma bleeding since 2100 today. Bloodwork was obtained. The patient is diagnosed with colostomy ostia. The patient is instructed to follow up with Dr. Richmond. - Diagnoses Provider Diagnoses: Bleeding from colostomy stoma - Physician Notifications Discussed Care Of Patient With: Bandar Richmond Time Discussed With Above Provider: 23:47 Instructed by Provider To: Other - Consulted Dr. Richmond at [phone] who suggested that pressure be applied to the ostia and to follow up with him. Discharge - Discharge Plan Condition: Stable Disposition: HOME Patient Education Materials: Colostomy Care (ED) Referrals: Bandar Richmond MD [Medical Doctor] - 3 Days Additional Instructions: RETURN TO THE EMERGENCY DEPARTMENT FOR CHANGING OR WORSENING SYMPTOMS. The documentation as recorded by the Gokul benitez Sixian accurately reflects the service I personally performed and the decisions made by , Roberto Gonzalez.
== END 2017-10-20 00:16 | disposition home or self-care (01) ==
LOC: ED 21:18
DX: K94.01 Colostomy hemorrhage (principal); Z91.041 Radiographic dye allergy status
CPT/HCPCS: 36415; 80053; 85025; 85610; 85730; 99282

== ENCOUNTER 2017-10-22 17:46 | Observation (INO) | payer OTHER ==
[2017-10-22 18:32] LABS: Hematocrit 21 % (35-47); Hemoglobin 6.7 g/dl (12.0-16.0); Mean Corpuscular HGB Conc 33 g/dl (31-36); Mean Corpuscular Hemoglobin 31 pg (27-31); Mean Corpuscular Volume 95 fL (80-97); Mean Platelet Volume 10 um3 (7.4-10.4); Platelet Count 188 10^3/ul (150-450); Red Blood Count 2.15 10^6/ul (4.0-5.4); Red Cell Distribution Width 19 % (10.5-15); White Blood Count 20.5 10^3/ul (3.5-10.8)
[2017-10-22 18:42] LABS: INR 1.07 (0.77-1.02)
[2017-10-22 18:47] LABS: EGFR Non-African American 49.1 (>60)
[2017-10-22 18:50] LABS: Monocytes % 12 % (0-7)
[2017-10-22 18:52] LABS: ABS Basophils 0 10^3/ul (0-0.2); ABS Eosinophils 0.4 10^3/ul (0-0.6); ABS Lymphocytes 1.6 10^3/ul (1.0-4.8); ABS Monocytes 3.1 10^3/ul (0-0.8); ABS Nucleated RBC 0 10^3/ul; Eosinophil % 2.1 % (0-6); Lymphocyte % 7.9 % (25-47); Nucleated Red Blood Cells % 0.2
[2017-10-22] MEDS ORDERED: NS 0.9% 1000 ML* 1,000 ML IV ONE (20:11)
--- NOTE | 2017-10-22 20:33 | ED ---
Jhon Islas Tiffany, scribed for Rogelio Sanchez MD on 10/22/17 at 2013 . GI/ HPI - HPI Summary HPI Summary: The patient is a 57 y/o F c/o bleeding from stoma since three days ago, worse since two hours ago today. Symptoms aggravated by nothing. Symptoms alleviated by nothing. Patient has been here multiple times for bleeding stoma and required multiple blood transfusions. Bleeding on and off last few days. History of colon cancer that has metastasized to liver. - History of Current Complaint Chief Complaint: EDGeneral Time Seen by Provider: 10/22/17 19:29 Stated Complaint: BLEEDING FROM STOMA Hx Obtained From: Patient Onset/Duration: Started Days Ago - 3 days, Still Present, Worse Since - Two hours ago today Timing: Constant Pain Intensity: 0 - Additional Pertinent History Primary Care Physician: AKIN - Allergy/Home Medications Allergies/Adverse Reactions: Allergies Allergy/AdvReac Type Severity Reaction Status Date / Time Iodinated Contrast- Oral and Allergy Hives Verified 10/03/17 01:42 IV Dye HAY FEVER Allergy Eyes Uncoded 09/17/17 08:26 Itchy/Swollen/Red/Watery PMH/Surg Hx/FS Hx/Imm Hx Previously Healthy: No Endocrine/Hematology History: Reports: Hx Anemia - ON MEDICATION Denies: Hx Diabetes, Hx Systemic Lupus Erythematosus Cardiovascular History: Reports: Hx Deep Vein Thrombosis, Other Cardiovascular Problems/Disorders - DVT LEFT LEG PRESENTLY AND ONE IN 1990; LOVENOX THERPHY Denies: Hx Congestive Heart Failure, Hx Hypertension, Hx Pacemaker/ICD GI History: Reports: Hx Ileostomy, Other GI Disorders - 6 months of diarrhea abd pain, colon CA History: Denies: Hx Dialysis, Hx Renal Disease Musculoskeletal History: Denies: Hx Rheumatoid Arthritis Sensory History: Reports: Hx Cataracts - LEFT, Hx Contacts or Glasses Denies: Hx Hearing Aid Opthamlomology History: Reports: Hx Cataracts - LEFT, Hx Contacts or Glasses Psychiatric History: Denies: Hx Panic Disorder - Cancer History Cancer Type, Location and Year: colon cancer with mets to liver Hx Chemotherapy: Yes Hx Radiation Therapy: No - Surgical History Surgery Procedure, Year, and Place: thumb; colectomy and appy 07/19/15; IVC FILTER PLACED WITH DR. WORTHINGTON 01/28/16 [place] [facility] - IMMEDIATELY AFTER IMPLANTATION 1.5T MRI CONDITIONAL 6-OK TO 2500G/CM (PT WILL BRING CARD WITH HER WELL) ; POWER PORT; portal vein embolization and paratial removal of liver 2015. Hx Anesthesia Reactions: No Infectious Disease History: No Infectious Disease History: Denies: Traveled Outside the [place] in Last 30 Days - Family History Known Family History: Positive: Blood Disorder - factor 5 Negative: Cardiac Disease, Hypertension - Social History Alcohol Use: None Alcohol Amount: SINCE 08/2015 Hx Substance Use: No Substance Use Type: Reports: None Hx Tobacco Use: No Smoking Status (MU): Never Smoked Tobacco Review of Systems Negative: Fever Positive: Other - Bleeding in colostomy bag All Other Systems Reviewed And Are Negative: Yes Physical Exam - Summary Physical Exam Summary: VITAL SIGNS: Reviewed. GENERAL: Patient is a well-developed female who is lying comfortable in the stretcher. Patient is not in any acute respiratory distress. Patient is pale. HEAD AND FACE: No signs of trauma. No ecchymosis, hematomas or skull depressions. No sinus tenderness. EYES: PERRLA, EOMI x 2, No injected conjunctiva, no nystagmus. EARS: Hearing grossly intact. Ear canals and tympanic membranes are within normal limits. MOUTH: Oropharynx within normal limits. NECK: Supple, trachea is midline, no adenopathy, no JVD, no carotid bruit, no c- spine tenderness, neck with full ROM. CHEST: Symmetric, no tenderness at palpation LUNGS: Clear to auscultation bilaterally. No wheezing or crackles. CVS: Tachycardic and regular rhythm, S1 and S2 present, no murmurs or gallops appreciated. ABDOMEN: Pt has mod size blood clot in her colostomy bag. No active bleeding from the stoma or the surrounding area, no blood coming out from colon itself when bag removed. EXTREMITIES: FROM in all major joints, no edema, no cyanosis or clubbing. NEURO: Alert and oriented x 3. No acute neurological deficits. Speech is normal and follows commands. SKIN: Dry and warm Triage Information Reviewed: Yes Vital Signs On Initial Exam: Initial Vitals Temp Pulse Resp BP Pulse Ox 97.6 F 94 16 90/58 100 10/22/17 17:50 10/22/17 17:50 10/22/17 17:50 10/22/17 17:50 10/22/17 17:50 Vital Signs Reviewed: Yes Diagnostics - Vital Signs Vital Signs Temp Pulse Resp BP Pulse Ox 10/22/17 17:50 97.6 F 94 16 90/58 100 - Laboratory Lab Results: Lab Results 10/22/17 10/22/17 10/22/17 Range/Units 18:20 18:20 18:20 WBC 20.5 H (3.5-10.8) 10^3/ul RBC 2.15 L (4.0-5.4) 10^6/ul Hgb 6.7 L (12.0-16.0) g/dl Hct 21 L (35-47) % MCV 95 (80-97) fL MCH 31 (27-31) pg MCHC 33 (31-36) g/dl RDW 19 H (10.5-15) % Plt Count 188 (150-450) 10^3/ul MPV 10 (7.4-10.4) um3 Neut % (Auto) 74.3 (38-83) % Lymph % (Auto) 7.9 L (25-47) % [place] % (Auto) 15.6 H (0-7) % Eos % (Auto) 2.1 (0-6) % Baso % (Auto) 0.1 (0-2) % Absolute Neuts (auto) 15.0 H (1.5-7.7) 10^3/ul Absolute Lymphs (auto) 1.6 (1.0-4.8) 10^3/ul Absolute Monos (auto) 3.1 H (0-0.8) 10^3/ul Absolute Eos (auto) 0.4 (0-0.6) 10^3/ul Absolute Basos (auto) 0 (0-0.2) 10^3/ul Absolute Nucleated RBC 0 10^3/ul Neutrophils % 77 (38-83) % Lymphocytes % 6 L (25-47) % Monocytes % 12 H (0-7) % Eosinophils % 2 (0-6) % Basophils % 3 H (0-2) % Nucleated RBC % 0.2 Normal RBC Morphology Not Reportable Polychromasia 1+ Hypochromasia 2+ Anisocytosis 2+ Hem Pathologist Commnt Pending INR (Anticoag Therapy) 1.07 H (0.77-1.02) APTT 21.1 L (26.0-36.3) seconds Sodium 128 L (133-145) mmol/L Potassium 3.8 (3.5-5.0) mmol/L Chloride 101 (101-111) mmol/L Carbon Dioxide 21 L (22-32) mmol/L Anion Gap 6 (2-11) mmol/L BUN 16 (6-24) mg/dL Creatinine 1.14 H (0.51-0.95) mg/dL Est GFR ( Amer) 63.2 (>60) Est GFR (Non-Af Amer) 49.1 (>60) BUN/Creatinine Ratio 14.0 (8-20) Glucose 137 H (70-100) mg/dL Lactic Acid (0.5-2.0) mmol/L Calcium 8.2 L (8.6-10.3) mg/dL Total Bilirubin 1.70 H (0.2-1.0) mg/dL AST 30 (13-39) U/L ALT 22 (7-52) U/L Alkaline Phosphatase 211 H (34-104) U/L Total Protein 5.2 L (6.4-8.9) g/dL Albumin 2.3 L (3.2-5.2) g/dL Globulin 2.9 (2-4) g/dL Albumin/Globulin Ratio 0.8 L (1-3) 02//18 Range/Units 18:20 WBC (3.5-10.8) 10^3/ul RBC (4.0-5.4) 10^6/ul Hgb (12.0-16.0) g/dl Hct (35-47) % MCV (80-97) fL MCH (27-31) pg MCHC (31-36) g/dl RDW (10.5-15) % Plt Count (150-450) 10^3/ul MPV (7.4-10.4) um3 Neut % (Auto) (38-83) % Lymph % (Auto) (25-47) % [place] % (Auto) (0-7) % Eos % (Auto) (0-6) % Baso % (Auto) (0-2) % Absolute Neuts (auto) (1.5-7.7) 10^3/ul Absolute Lymphs (auto) (1.0-4.8) 10^3/ul Absolute Monos (auto) (0-0.8) 10^3/ul Absolute Eos (auto) (0-0.6) 10^3/ul Absolute Basos (auto) (0-0.2) 10^3/ul Absolute Nucleated RBC 10^3/ul Neutrophils % (38-83) % Lymphocytes % (25-47) % Monocytes % (0-7) % Eosinophils % (0-6) % Basophils % (0-2) % Nucleated RBC % Normal RBC Morphology Polychromasia Hypochromasia Anisocytosis Hem Pathologist Commnt INR (Anticoag Therapy) (0.77-1.02) APTT (26.0-36.3) seconds Sodium (133-145) mmol/L Potassium (3.5-5.0) mmol/L Chloride (101-111) mmol/L Carbon Dioxide (22-32) mmol/L Anion Gap (2-11) mmol/L BUN (6-24) mg/dL Creatinine (0.51-0.95) mg/dL Est GFR ( Amer) (>60) Est GFR (Non-Af Amer) (>60) BUN/Creatinine Ratio (8-20) Glucose (70-100) mg/dL Lactic Acid 3.7 H* (0.5-2.0) mmol/L Calcium (8.6-10.3) mg/dL Total Bilirubin (0.2-1.0) mg/dL AST (13-39) U/L ALT (7-52) U/L Alkaline Phosphatase (34-104) U/L Total Protein (6.4-8.9) g/dL Albumin (3.2-5.2) g/dL Globulin (2-4) g/dL Albumin/Globulin Ratio (1-3) Result Diagrams: 10/22/17 18:20 10/22/17 18:20 Lab Statement: Any lab studies that have been ordered have been reviewed, and results considered in the medical decision making process. GIGU Course/Dx - Course Course Of Treatment: 57 y/o F c/o bleeding stoma for the last few days. Has been here multiple times for same complaint. Hx of colon cancer that has metastasized to liver. Discussed with Dr. Fuentes (hospitalist) who agrees to admit patient. - Diagnoses Provider Diagnoses: Bleeding, acute blood loss - Physician Notifications Discussed Care Of Patient With: Warren Fuentes Time Discussed With Above Provider: 20:21 Instructed by Provider To: Other - Dr. Fuentes agrees to admit patient. Discharge - Discharge Plan Condition: Good Disposition: ADMITTED TO [facility] Referrals: Deana Hodges MD [Primary Care Provider] - The documentation as recorded by the Jhon benitez Tiffany accurately reflects the service I personally performed and the decisions made by me, Rogelio Sanchez MD.
--- NOTE | 2017-10-22 23:28 | HP ---
H&P (Free Text) History and Physical: Note: This is an interval H&P, please see the more complete H&P dated copied to the bottom for more details. PCP: Yani Hodges MD Oncology: Latrice Newell MD Date/Time: 10/22/2016 231 CC: bleeding from stoma, blood loss anemia HPI: Mrs Cano is a 57YO female HX colon CA metastatic to liver s/p resection w / colostomy who was admitted to [facility] 10/03-10/04/2017 for blood loss anemia related to an arterial bleed sutured in the ED, discharged with an H&H of 8.5 after 2 units pRBCs. She had 2 episodes of bleeding Sunday the , one reportedly in Dr Richmond's office and again after returning home. 2 more episodes occurred on Sunday and none on Sunday. Today she had a bleeding episode and noticed increasing fatigue for which she presented to [facility] with finding of HGB 6.7. She denies chest and abdominal pain, SOB, palpitations, light-headedness, and other new or acute issues. Ostomy output has otherwise been normal. Dr Richmond saw her in the ED and agreed with observation & transfusion. PMedHx, PSurgHx, SocHx, & FamHx: reviewed & unchanged compared to H&P dated 02/2018 Ambulatory Orders Nursing to reconcile. Ferrous Sulfate TAB* 650 mg PO DAILY 01/27/16 Ondansetron ODT TAB* [Zofran 4 MG Odt TAB*] 4 mg PO QID PRN 05/31/17 Potassium Chlor TAB* [Klor Con ER TAB 10 MEQ*] 10 meq PO DAILY #30 tab.er Allergies Iodinated Contrast- Oral and IV Dye Allergy (Verified 10/03/17 01:42) Hives HAY FEVER Allergy (Uncoded 09/17/17 08:26) Eyes Itchy/Swollen/Red/Watery ROS: as above, otherwise reviewed and all were negative vitals: Vital Signs Temp 36.4 C 10/22/17 17:50 Pulse 78 10/22/17 21:00 Resp 17 10/22/17 21:00 BP 105/49 10/22/17 21:00 Pulse Ox 100 10/22/17 21:00 Intake & Output 0210/22/17 10/22/17 23:59 11:59 23:59 Weight 70.307 kg Constitutional: NAD, normally developed, well-nourished white female HEENM: atraumatic; sclera/conjunctiva: anicteric/clear; hearing: clinically intact; oropharynx: clear, mucosa tacky Neck: soft tissue: non-tender; thyroid: normal Pulmonary: clear to auscultation bilaterally, good aeration, no accessory muscle use CV: RR/RR, normal S1S2, no carotid bruit, no jugular venous distention, 2+ B DP/ PT, no edema Abdominal: soft, non-distended, non-tender, no rebound/guarding/rigidity, normoactive bowel sounds, no hepatosplenomegaly or masses, no costovertebral angle tenderness; ostomy Musculoskeletal: general: grossly intact, no tenderness with palpation Integumental: pale appearing, normal texture of exposed skin Psychiatric orientation: AA&O to PPS affect: calm mood: cooperative/pleasant eye contact: good content: reliable responses: timely insight: good Testing: Lab Results 10/22/17 10/22/17 10/22/17 Range/Units 18:20 18:20 18:20 WBC 20.5 H (3.5-10.8) 10^3/ul RBC 2.15 L (4.0-5.4) 10^6/ul Hgb 6.7 L (12.0-16.0) g/dl Hct 21 L (35-47) % MCV 95 (80-97) fL MCH 31 (27-31) pg MCHC 33 (31-36) g/dl RDW 19 H (10.5-15) % Plt Count 188 (150-450) 10^3/ul MPV 10 (7.4-10.4) um3 Neut % (Auto) 74.3 (38-83) % Lymph % (Auto) 7.9 L (25-47) % [place] % (Auto) 15.6 H (0-7) % Eos % (Auto) 2.1 (0-6) % Baso % (Auto) 0.1 (0-2) % Absolute Neuts (auto) 15.0 H (1.5-7.7) 10^3/ul Absolute Lymphs (auto) 1.6 (1.0-4.8) 10^3/ul Absolute Monos (auto) 3.1 H (0-0.8) 10^3/ul Absolute Eos (auto) 0.4 (0-0.6) 10^3/ul Absolute Basos (auto) 0 (0-0.2) 10^3/ul Absolute Nucleated RBC 0 10^3/ul Neutrophils % 77 (38-83) % Lymphocytes % 6 L (25-47) % Monocytes % 12 H (0-7) % Eosinophils % 2 (0-6) % Basophils % 3 H (0-2) % Nucleated RBC % 0.2 Normal RBC Morphology Not Reportable Polychromasia 1+ Hypochromasia 2+ Anisocytosis 2+ Hem Pathologist Commnt Pending INR (Anticoag Therapy) 1.07 H (0.77-1.02) APTT 21.1 L (26.0-36.3) seconds Sodium 128 L (133-145) mmol/L Potassium 3.8 (3.5-5.0) mmol/L Chloride 101 (101-111) mmol/L Carbon Dioxide 21 L (22-32) mmol/L Anion Gap 6 (2-11) mmol/L BUN 16 (6-24) mg/dL Creatinine 1.14 H (0.51-0.95) mg/dL Est GFR ( Amer) 63.2 (>60) Est GFR (Non-Af Amer) 49.1 (>60) BUN/Creatinine Ratio 14.0 (8-20) Glucose 137 H (70-100) mg/dL Lactic Acid (0.5-2.0) mmol/L Calcium 8.2 L (8.6-10.3) mg/dL Total Bilirubin 1.70 H (0.2-1.0) mg/dL AST 30 (13-39) U/L ALT 22 (7-52) U/L Alkaline Phosphatase 211 H (34-104) U/L Total Protein 5.2 L (6.4-8.9) g/dL Albumin 2.3 L (3.2-5.2) g/dL Globulin 2.9 (2-4) g/dL Albumin/Globulin Ratio 0.8 L (1-3) Blood Type Antibody Screen Crossmatch 10/22/17 10/22/17 Range/Units 18:20 18:20 WBC (3.5-10.8) 10^3/ul RBC (4.0-5.4) 10^6/ul Hgb (12.0-16.0) g/dl Hct (35-47) % MCV (80-97) fL MCH (27-31) pg MCHC (31-36) g/dl RDW (10.5-15) % Plt Count (150-450) 10^3/ul MPV (7.4-10.4) um3 Neut % (Auto) (38-83) % Lymph % (Auto) (25-47) % [place] % (Auto) (0-7) % Eos % (Auto) (0-6) % Baso % (Auto) (0-2) % Absolute Neuts (auto) (1.5-7.7) 10^3/ul Absolute Lymphs (auto) (1.0-4.8) 10^3/ul Absolute Monos (auto) (0-0.8) 10^3/ul Absolute Eos (auto) (0-0.6) 10^3/ul Absolute Basos (auto) (0-0.2) 10^3/ul Absolute Nucleated RBC 10^3/ul Neutrophils % (38-83) % Lymphocytes % (25-47) % Monocytes % (0-7) % Eosinophils % (0-6) % Basophils % (0-2) % Nucleated RBC % Normal RBC Morphology Polychromasia Hypochromasia Anisocytosis Hem Pathologist Commnt INR (Anticoag Therapy) (0.77-1.02) APTT (26.0-36.3) seconds Sodium (133-145) mmol/L Potassium (3.5-5.0) mmol/L Chloride (101-111) mmol/L Carbon Dioxide (22-32) mmol/L Anion Gap (2-11) mmol/L BUN (6-24) mg/dL Creatinine (0.51-0.95) mg/dL Est GFR ( Amer) (>60) Est GFR (Non-Af Amer) (>60) BUN/Creatinine Ratio (8-20) Glucose (70-100) mg/dL Lactic Acid 3.7 H* (0.5-2.0) mmol/L Calcium (8.6-10.3) mg/dL Total Bilirubin (0.2-1.0) mg/dL AST (13-39) U/L ALT (7-52) U/L Alkaline Phosphatase (34-104) U/L Total Protein (6.4-8.9) g/dL Albumin (3.2-5.2) g/dL Globulin (2-4) g/dL Albumin/Globulin Ratio (1-3) Blood Type O Positive Antibody Screen Negative Crossmatch See Detail Impression: 57F HX colon CA metastatic to liver s/p resection & colostomy with recurrent lower GI bleeding DIAGNOSIS & PLAN Primary lower GI bleeding from ostomy : transfuse 2 units pRBCs : trend H&H & lactic acid : continue iron supplementation : Lina Richmond MD consulted, will arrange follow up : supportive care suspect protein-calorie malnutrition : check pre-albumin in AM leukocytosis w/o s/s infection : likely stress reaction from acute anemia : trend Secondary colon CA w/ liver metastases : management per oncology Admission Rational: inpatient for recurrent lower GI bleed from ostomy requiring another transfusion; inappropriate for outpatient setting DVTp: SCDs, no anticoagulation 2nd acute bleeding Code Status: full HCP: --- History & Physical Patient: EVELINE CAON /Age: 10 1960 57 Medical Record#: [id number] Admission Date: 10/03/17 Provider: Annette Bond DO CC: Dr. Deana Hodges; Dr. Newell * HISTORY AND PHYSICAL: DATE OF ADMISSION: 10/03/17 PRIMARY CARE PROVIDER: Dr. Deana Hodges. ONCOLOGIST: Dr. Newell. CHIEF COMPLAINT: Bleeding from around colostomy. HISTORY OF PRESENT ILLNESS: Ms. Cano is a 57-year-old female who has a known history of metastatic colon cancer with liver mets, who is on Xeloda and Avastin , who presents to the emergency room after she was noted to have profuse bleeding from around her colostomy. The patient states that at approximately 7: 30 p.m. on 10/02/17, she noted that her colostomy bag was very full. She then noticed blood leaking out from around the side of the bag. She removed the bag and was found to be profusely bleeding from an area between the ostomy itself and her skin. The patient contacted 911 and she was brought to the emergency room for evaluation. The patient had an episode similar to this in March 2017. At that time, she just needed to apply pressure and the bleeding stopped. The patient needed to have two stitches placed by the ER provider and the bleeding has since stopped. The patient, however, was noted to have a hemoglobin of 7.7 in the emergency room. She had blood work performed on the morning of 10/02/17 for her liver doctor at [facility] and, at that point, her hemoglobin was 12.2. The patient has also been hypotensive. She does state that she got up to walk to the bathroom. She noted when she got up to the bathroom, she felt okay; however, walking back, she did feel lightheaded. She denies any shortness of breath, she denies palpitations. She does note that on this past Sunday, she passed some what appeared to be old black blood and then had the now bright red blood. PAST MEDICAL HISTORY: Colon cancer with mets to liver. PAST SURGICAL HISTORY: 1. Partial colectomy with colostomy creation. 2. Partial liver resection. 3. Bile duct stents, now status post removal. 4. Appendectomy. ALLERGIES: IV CONTRAST DYE. MEDICATIONS: 1. Lasix 40 mg p.o. daily. 2. Spironolactone 50 mg p.o. twice daily. 3. Zofran ODT 4 mg p.o. 4 times daily p.r.n. nausea. 4. Nadolol 40 mg p.o. daily. 5. Ferrous sulfate 650 mg p.o. daily. FAMILY HISTORY: Mom is from unknown causes. Dad is also ; he had heart disease. SOCIAL HISTORY: The patient is a lifelong nonsmoker. She does not drink alcohol. She works at [employer] in the [employer]. She is . She has two children. REVIEW OF SYSTEMS: A complete 11-system review of systems is obtained. Pertinent positives and negatives are as per HPI. In addition, the patient did note some flu- like symptoms the week prior to admission with cough and diarrhea. She also complains of right shoulder pain, and states that she fell and injured her right shoulder on 08/27/17. PHYSICAL EXAMINATION GENERAL: The patient is a well-developed, middle-aged, jaundiced-appearing female lying in the stretcher, in no acute distress. VITAL SIGNS: Blood pressure 60/42, pulse 86, respirations 17, temp 97.7, O2 sat 98% on room air. HEENT: Pupils are equal and round. Extraocular muscles are intact. The patient has icteric sclera. There is no submandibular, cervical, or supraclavicular adenopathy. Thyroid is not enlarged. No thyroid nodules are noted. PULMONARY: Lungs are clear to auscultation bilaterally. CARDIAC: Normal S1, S2. Regular rate and rhythm. Heart sounds are quite distant. There is no lower extremity edema. ABDOMEN: Bowel sounds are present. Abdomen is soft, nontender, and nondistended. The patient's ostomy appliance is not removed at this time, but the bag is empty. MUSCULOSKELETAL: There is no cyanosis or clubbing of the digits. There is full active range of motion of all 4 extremities. SKIN: Warm and dry. She has no rashes. She is jaundiced. NEURO: Cranial nerves II through XII are grossly intact. Sensation is intact to light touch throughout. Strength is 5/5 and symmetric in both upper and lower extremities bilaterally. PSYCH: The patient is alert. She is oriented x3. Affect appears appropriate. LABORATORY DATA: WBC 6.8, hemoglobin 7.7, hematocrit 23, platelets 43. INR 2.54. Sodium 136, potassium 3.5, chloride 110, CO2 20, BUN 14, creatinine 1.25, glucose 126, calcium 7.1. Bilirubin 4.2, AST 25, ALT 20, alk phos 113, albumin 1.8. ASSESSMENT AND PLAN: Ms. Cano is a 57-year-old female who presented to the emergency room with complaints of bleeding around her ostomy and is found to have acute blood loss anemia. 1. Acute blood loss anemia. This is not a true GI bleed. Visible bleeding vessels were identified by Dr. Sanchez and were able to be sutured. The patient has two [id number] stitches in place. I do not think a GI consultation is required at this time. The patient is receiving 2 units of packed red blood cells. She will have a CBC obtained 1 hour after completing the last unit of blood. She will also have a followup CBC in the morning of 10/03/17. The patient is markedly hypotensive at this time; however, her mentation is normal and she denies feeling lightheaded or dizzy. I will monitor her blood pressure while she is receiving the 2 units of packed red blood cells; and if she does not improve her blood pressure with this, she will continue to receive boluses of normal saline. She has already received 3 L of normal saline. I suspect the patient's Avastin and possibly the Xeloda in combination with marked thrombocytopenia and elevated INR are what led to her bleeding episode. 2. Thrombocytopenia. The patient is chronically thrombocytopenic; however, her platelet currently is much worse than usual. In fact, on the morning of 02/11, the patient's platelet count was 76,000. It has since trended down to 43 ,000. I am going to hold off on transfusing platelets at this point; however, if she shows signs of continued bleeding with decreases in her platelet count, platelet transfusion can be considered. 3. Elevated INR. I suspect this is related to her underlying liver disease and , questionably, her chemotherapy agents. The patient will be given vitamin K 5 mg p.o. x1. A repeat INR will be obtained later in the morning of 10/03/17. 4. Elevated creatinine. I suspect this is from poor perfusion as the patient is quite hypotensive secondary to volume loss. Followup BMP will be obtained later in the morning of 10/03/17. As mentioned above, the patient has already received 3 L of normal saline and will be receiving 2 units of packed red blood cells. I suspect once her pressures and volume status are corrected, her creatinine will normalize. 5. Metastatic colon cancer. Management per Oncology. 6. Jaundice. The patient's bilirubin is elevated at 4.2. This is within the range of where she has been over the last 1 week or so, but higher than where her bilirubin has been most recently. The patient does see a liver doctor at [facility]. Further decisions will need to be made down the road about treatment options. 7. DVT prophylaxis. According to Adult Thrombosis Prophylaxis Risk Factor Assessment Guide, the patient has a total risk factor score of 3, making her high risk. SCDs alone will be utilized as DVT prophylaxis given her acute blood loss anemia. 8. Code status is full. TIME SPENT: 65 minutes were spent admitting this patient. [id number]/[facility] #: [id number] <Electronically signed by Annette Bond DO> 10/11/17 0947 Annette Bond DO Dictated Date/Time: 10/03/17 0135 Transcribed Date/Time 10/03/17 0256 Copy to: CC: Annette Bond DO; Deana Hodges MD; Rambo Newell MD
[2017-10-22] MEDS ORDERED: Acetaminophen TAB* 325 MG PO PRN (23:55)
[2017-10-22] MEDS ORDERED: CMCS: Melatonin (NF) 3 MG TAB PO PRN (23:55)
[2017-10-22] MEDS ORDERED: Ondansetron INJ* 2 MG/ML VIAL IV PRN (23:55)
[2017-10-23 05:38] LABS: ABS Basophils 0.1 10^3/ul (0-0.2); ABS Eosinophils 0.2 10^3/ul (0-0.6); ABS Monocytes 1.4 10^3/ul (0-0.8); ABS Neutrophils 8.2 10^3/ul (1.5-7.7); ABS Nucleated RBC 0 10^3/ul; Eosinophil % 1.8 % (0-6); Hematocrit 23 % (35-47); Hemoglobin 7.8 g/dl (12.0-16.0); Lymphocyte % 8.8 % (25-47); Mean Corpuscular HGB Conc 34 g/dl (31-36); Mean Corpuscular Hemoglobin 31 pg (27-31); Mean Corpuscular Volume 91 fL (80-97); Mean Platelet Volume 9 um3 (7.4-10.4); Nucleated Red Blood Cells % 0.1; Platelet Count 125 10^3/ul (150-450); Red Blood Count 2.54 10^6/ul (4.0-5.4); Red Cell Distribution Width 18 % (10.5-15)
[2017-10-23] MEDS: Omeprazole CAP* 20 MG PO SCH (05:40)
[2017-10-23 05:52] LABS: EGFR Non-African American 61.4 (>60)
[2017-10-23] MEDS: Docusate CAP* 100 MG PO SCH ×2 (08:45→21:26)
[2017-10-23] MEDS: Ferrous Sulfate TAB* 325 MG PO SCH (08:49)
[2017-10-23] MEDS ORDERED: Potassium Chlor TAB* 10 MEQ TAB.ER PO SCH (09:00)
--- NOTE | 2017-10-23 09:24 | PN ---
Progress Note - Progress Note Date of Service: 10/23/17 Note: S: Brief visit (patient seen last evening by Dr. Richmond). Her Avastin has been held this past month. She received 2 units of blood overnight. She states that there has been no colostomy bleeding overnight. She emptied her bag of normal brown stool this morning, absent of any blood or clot. O: Vital Signs - 8 hr 10/23/17 10/23/17 10/23/17 01:35 02:02 02:52 Temperature 98.5 F 98.2 F Pulse Rate 81 79 Respiratory 15 16 18 Rate Blood Pressure 101/49 99/55 (mmHg) O2 Sat by Pulse 100 100 Oximetry 10/23/17 10/23/17 03:49 07:45 Temperature 97.5 F 98.0 F Pulse Rate 80 72 Respiratory 16 16 Rate Blood Pressure 101/57 108/57 (mmHg) O2 Sat by Pulse 100 100 Oximetry No PE performed. Laboratory Tests 10/22/17 10/22/17 10/22/17 18:20 18:20 18:20 WBC 20.5 H Hgb 6.7 L Plt Count 188 INR (Anticoag Therapy) 1.07 H Total Bilirubin 1.70 H AST 30 ALT 22 Alkaline Phosphatase 211 H 10/23/17 05:25 WBC 11.0 H Hgb 7.8 L Plt Count 125 L INR (Anticoag Therapy) Total Bilirubin AST ALT Alkaline Phosphatase A: recurrent bleeding from colostomy site, now stopped. Still w/ sig acute blood loss anemia. P: will defer continued mgmt to medicine/onc; no acute need for surgical intervention, though some limited discussion of colostomy revision. Will d/w Dr. Richmond and patient will discuss further w/ Dr. Newell.
[2017-10-23] MEDS: NS 0.9% 1000 ML* 1,000 ML IV SCH ×2 (10:27→21:22)
[2017-10-23] MEDS: Spironolactone TAB* 25 MG PO SCH ×2 (13:14→21:25)
[2017-10-23] MEDS: Potassium Chlor TAB* 20 MEQ TAB.ER PO SCH (13:15)
[2017-10-24 05:51] LABS: ABS Basophils 0.1 10^3/ul (0-0.2); ABS Eosinophils 0.3 10^3/ul (0-0.6); ABS Lymphocytes 0.8 10^3/ul (1.0-4.8); ABS Monocytes 1.5 10^3/ul (0-0.8); ABS Neutrophils 8.7 10^3/ul (1.5-7.7); ABS Nucleated RBC 0 10^3/ul; Eosinophil % 2.2 % (0-6); Hematocrit 29 % (35-47); Hemoglobin 9.8 g/dl (12.0-16.0); Lymphocyte % 7.2 % (25-47); Mean Corpuscular HGB Conc 34 g/dl (31-36); Mean Corpuscular Hemoglobin 31 pg (27-31); Mean Corpuscular Volume 90 fL (80-97); Mean Platelet Volume 9 um3 (7.4-10.4); Nucleated Red Blood Cells % 0.2; Platelet Count 133 10^3/ul (150-450); Red Blood Count 3.18 10^6/ul (4.0-5.4); Red Cell Distribution Width 18 % (10.5-15); White Blood Count 11.4 10^3/ul (3.5-10.8)
[2017-10-24] MEDS: Omeprazole CAP* 20 MG PO SCH (06:08)
[2017-10-24] MEDS: Potassium Chlor TAB* 20 MEQ TAB.ER PO SCH (08:02)
[2017-10-24] MEDS: NS 0.9% 1000 ML* 1,000 ML IV SCH (08:02)
[2017-10-24] MEDS: Spironolactone TAB* 25 MG PO SCH (08:02)
[2017-10-24] MEDS: Ferrous Sulfate TAB* 325 MG PO SCH (08:02)
[2017-10-24] MEDS: Docusate CAP* 100 MG PO SCH (08:02)
--- NOTE | 2017-10-24 09:41 | DS ---
- Discharge Summary ADMIT DATE: 10/22/77 DISCHARGE DATE: 10/24/17 DISCHARGE DIAGNOSIS: 1. recurrent GI bleed, stoma related 2. metastatic colon cancer 3. profound anemia related to GI bleed DISCHARGE MEDICATIONS: Home Medications Medication Instructions Recorded Confirmed Type Ferrous Sulfate TAB* 650 mg PO DAILY 01/27/16 10/22/17 History Ondansetron ODT TAB* [Zofran 4 MG 4 mg PO QID PRN 05/31/17 10/22/17 History Odt TAB*] Potassium Chlor TAB* [Klor Con ER 10 meq PO DAILY #30 tab.er 10/04/17 10/22/17 Rx TAB 10 MEQ*] Spironolactone TAB* [Aldactone TAB 25 mg PO BID tab 10/24/17 Rx 25 MG*] DISCHARGE FOLLOW UP: 10/30 at 1 pm HOSPITAL COURSE: Kika was admitted with recurrent profound bleeding into ostomy bag from her stump. she was admitted and transfused and no further bleeding was observed. She ultimately may need ostomy repositioned, though this is an ongoing discussion between jeovany and Dr. Newell. She is ~4 weeks out from her last avastin at this point. She will follow up with Dr. Newell next week to discuss further plans. >30 mins spent, >50% in face to face counseling
[2017-10-24 12:08] VITALS: BP 123/73
== END 2017-10-24 12:05 | disposition home or self-care (01) ==
LOC: ED 17:46 → INTOOBSV 10-23 → SSU 10-23
PROVIDERS: ADMIT Hospitalist; ATTEND Internal Medicine Hematology & Oncology
DX: K94.01 Colostomy hemorrhage (principal); D64.9 Anemia, unspecified; Z86.718 Personal history of other venous thrombosis and embolism; Z85.038 Personal history of other malignant neoplasm of large intestine
CPT/HCPCS: 36415; 36430; 80048; 80053; 83605; 85025; 85060; 85610; 85730; 86850; 86900; 86901; 86922; 96374; 96375; 99217; 99232; 99285; A9270-GY; G0378; P9040

== ENCOUNTER 2017-10-25 01:14 | Inpatient (IN) | payer OTHER ==
[2017-10-25] MEDS ORDERED: Silver Nitrate/Potassium Nitr* 1 EA STICK ONE (01:35)
[2017-10-25] MEDS ORDERED: NS 0.9% 1000 ML* 1,000 ML IV ONE (01:41)
[2017-10-25 01:57] LABS: ABS Basophils 0.1 10^3/ul (0-0.2); ABS Eosinophils 0.4 10^3/ul (0-0.6); ABS Monocytes 1.5 10^3/ul (0-0.8); ABS Neutrophils 10.9 10^3/ul (1.5-7.7); ABS Nucleated RBC 0 10^3/ul; Eosinophil % 2.6 % (0-6); Hematocrit 24 % (35-47); Lymphocyte % 7.4 % (25-47); Mean Corpuscular HGB Conc 33 g/dl (31-36); Mean Corpuscular Hemoglobin 30 pg (27-31); Mean Corpuscular Volume 91 fL (80-97); Mean Platelet Volume 9 um3 (7.4-10.4); Nucleated Red Blood Cells % 0.1; Platelet Count 137 10^3/ul (150-450); Red Blood Count 2.67 10^6/ul (4.0-5.4); Red Cell Distribution Width 18 % (10.5-15); White Blood Count 13.9 10^3/ul (3.5-10.8)
[2017-10-25 02:07] LABS: INR 1.1 (0.77-1.02)
[2017-10-25 02:12] LABS: EGFR Non-African American 60.6 (>60)
--- NOTE | 2017-10-25 03:21 | ED ---
ISherry Gabriel, scribed for Rogelio Sanchez MD on 10/25/17 at 0221 . Complex/Multi-Sys Presentation - HPI Summary HPI Summary: This patient is a 57 year old F BIBA to [facility] with a chief complaint of bleeding from her ostomy bag. Pt was just seen last night for the same reason and received 3 units of blood. Tonight she filled 2 of her ostomy bags with blood. I am familiar with this pt she is seen here often for bleeding from the ostomy. She has a hx of colon cancer. - History Of Current Complaint Chief Complaint: EDGeneral Time Seen by Provider: 10/25/17 01:40 Hx Obtained From: Patient Onset/Duration: Lasting Minutes, Still Present Timing: Constant Severity Currently: None Severity Initially: Moderate Associated Signs And Symptoms: Positive: Other - ostomy bleeding. Negative: Nausea, Vomiting - Allergies/Home Medications Allergies/Adverse Reactions: Allergies Allergy/AdvReac Type Severity Reaction Status Date / Time Iodinated Contrast- Oral and Allergy Hives Verified 10/03/17 01:42 IV Dye HAY FEVER Allergy Eyes Uncoded 09/17/17 08:26 Itchy/Swollen/Red/Watery PMH/Surg Hx/FS Hx/Imm Hx Endocrine/Hematology History: Reports: Hx Anemia - ON MEDICATION Denies: Hx Diabetes, Hx Systemic Lupus Erythematosus Cardiovascular History: Reports: Hx Deep Vein Thrombosis, Other Cardiovascular Problems/Disorders - DVT LEFT LEG PRESENTLY AND ONE IN 1990; LOVENOX THERPHY Denies: Hx Congestive Heart Failure, Hx Hypertension, Hx Pacemaker/ICD GI History: Reports: Hx Ileostomy, Other GI Disorders - 6 months of diarrhea abd pain, colon CA History: Denies: Hx Dialysis, Hx Renal Disease Musculoskeletal History: Denies: Hx Rheumatoid Arthritis Sensory History: Reports: Hx Cataracts - LEFT, Hx Contacts or Glasses Denies: Hx Hearing Aid Opthamlomology History: Reports: Hx Cataracts - LEFT, Hx Contacts or Glasses Psychiatric History: Denies: Hx Panic Disorder - Cancer History Cancer Type, Location and Year: colon cancer with mets to liver Hx Chemotherapy: Yes Hx Radiation Therapy: No - Surgical History Surgery Procedure, Year, and Place: thumb; colectomy and appy 07/19/15; IVC FILTER PLACED WITH DR. WORTHINGTON 01/28/16 [facility] - IMMEDIATELY AFTER IMPLANTATION 1.5T MRI CONDITIONAL 6-OK TO 2500G/CM (PT WILL BRING CARD WITH HER WELL) ; POWER PORT; portal vein embolization and paratial removal of liver 2015. Hx Anesthesia Reactions: No Infectious Disease History: No Infectious Disease History: Denies: Traveled Outside the [place] in Last 30 Days - Family History Known Family History: Positive: Blood Disorder - factor 5 Negative: Cardiac Disease, Hypertension - Social History Alcohol Use: Rare Alcohol Amount: SINCE 08/2015 Hx Substance Use: No Substance Use Type: Reports: None Hx Tobacco Use: No Smoking Status (MU): Never Smoked Tobacco Review of Systems Negative: Fever Positive: other - ostomy bag All Other Systems Reviewed And Are Negative: Yes Physical Exam - Summary Physical Exam Summary: VITAL SIGNS: Reviewed. GENERAL: Patient is a well-developed and nourished female who is lying comfortable in the stretcher. Patient is not in any acute respiratory distress. Pt appears pale HEAD AND FACE: No signs of trauma. No ecchymosis, hematomas or skull depressions. No sinus tenderness. EYES: PERRLA, EOMI x 2, No injected conjunctiva, no nystagmus. EARS: Hearing grossly intact. Ear canals and tympanic membranes are within normal limits. MOUTH: Oropharynx within normal limits. NECK: Supple, trachea is midline, no adenopathy, no JVD, no carotid bruit, no c- spine tenderness, neck with full ROM. CHEST: Symmetric, no tenderness at palpation LUNGS: Clear to auscultation bilaterally. No wheezing or crackles. CVS: tachycardia, S1 and S2 present, no murmurs or gallops appreciated. ABDOMEN: Soft, non-tender. No signs of distention. No rebound no guarding, and no masses palpated. Bowel sounds are normal. There is no acitve bleeding from the ostomy bag EXTREMITIES: FROM in all major joints, no edema, no cyanosis or clubbing. NEURO: Alert and oriented x 3. No acute neurological deficits. Speech is normal and follows commands. SKIN: Dry and warm Triage Information Reviewed: Yes Vital Signs On Initial Exam: Initial Vitals Temp Pulse Resp BP Pulse Ox 98.5 F 99 18 101/66 96 10/25/17 01:15 10/25/17 01:15 10/25/17 01:15 10/25/17 01:15 10/25/17 01:15 Vital Signs Reviewed: Yes Diagnostics - Vital Signs Vital Signs Temp Pulse Resp BP Pulse Ox 10/25/17 01:15 98.5 F 99 18 101/66 96 - Laboratory Lab Results: Lab Results 10/25/17 10/25/17 10/25/17 Range/Units 01:45 01:45 01:45 WBC 13.9 H (3.5-10.8) 10^3/ul RBC 2.67 L (4.0-5.4) 10^6/ul Hgb 8.0 L (12.0-16.0) g/dl Hct 24 L (35-47) % MCV 91 (80-97) fL MCH 30 (27-31) pg MCHC 33 (31-36) g/dl RDW 18 H (10.5-15) % Plt Count 137 L (150-450) 10^3/ul MPV 9 (7.4-10.4) um3 Neut % (Auto) 78.3 (38-83) % Lymph % (Auto) 7.4 L (25-47) % [place] % (Auto) 11.0 H (0-7) % Eos % (Auto) 2.6 (0-6) % Baso % (Auto) 0.7 (0-2) % Absolute Neuts (auto) 10.9 H (1.5-7.7) 10^3/ul Absolute Lymphs (auto) 1.0 (1.0-4.8) 10^3/ul Absolute Monos (auto) 1.5 H (0-0.8) 10^3/ul Absolute Eos (auto) 0.4 (0-0.6) 10^3/ul Absolute Basos (auto) 0.1 (0-0.2) 10^3/ul Absolute Nucleated RBC 0 10^3/ul Nucleated RBC % 0.1 INR (Anticoag Therapy) 1.10 H (0.77-1.02) APTT 20.9 L (26.0-36.3) seconds Sodium 131 L (133-145) mmol/L Potassium 4.4 (3.5-5.0) mmol/L Chloride 109 (101-111) mmol/L Carbon Dioxide 16 L (22-32) mmol/L Anion Gap 6 (2-11) mmol/L BUN 11 (6-24) mg/dL Creatinine 0.95 (0.51-0.95) mg/dL Est GFR ( Amer) 78.0 (>60) Est GFR (Non-Af Amer) 60.6 (>60) BUN/Creatinine Ratio 11.6 (8-20) Glucose 171 H (70-100) mg/dL Calcium 7.7 L (8.6-10.3) mg/dL Total Bilirubin 1.90 H (0.2-1.0) mg/dL AST 32 (13-39) U/L ALT 19 (7-52) U/L Alkaline Phosphatase 186 H (34-104) U/L Total Protein 4.4 L (6.4-8.9) g/dL Albumin 2.0 L (3.2-5.2) g/dL Globulin 2.4 (2-4) g/dL Albumin/Globulin Ratio 0.8 L (1-3) Result Diagrams: 10/25/17 01:45 10/25/17 01:45 Lab Statement: Any lab studies that have been ordered have been reviewed, and results considered in the medical decision making process. Complex Multi-Symp Course/Dx Course Of Treatment: This patient is a 57 year old F BIBA to [facility] with a chief complaint of bleeding from her ostomy bag. Pt was just seen last night for the same reason and received 3 units of blood. Tonight she filled 2 of her ostomy bags with blood. I am familiar with this pt she is seen here often for bleeding from the ostomy. She has a hx of colon cancer. Test results with no significant abnormalities. In the ED course the patient was given silver nitrate and IV fluids. Dx bleeding from the colostomy site. We discussed patient care with Dr. Fuentes and they accepted the patient for admittance. Patient will be admitted. The patient is agreeable with this plan. - Diagnoses Provider Diagnoses: Bleeding from colostomy - Physician Notifications Discussed Care Of Patient With: Warren Fuentes Time Discussed With Above Provider: 03:11 Instructed by Provider To: Admit As Inpatient Discharge - Discharge Plan Condition: Fair Disposition: ADMITTED TO [facility] Referrals: Deana Hodges MD [Primary Care Provider] - The documentation as recorded by the Sherry benitez Gabriel accurately reflects the service I personally performed and the decisions made by me, Rogelio Sanchez MD.
[2017-10-25] MEDS ORDERED: Acetaminophen TAB* 325 MG PO PRN (06:28)
[2017-10-25] MEDS ORDERED: oxyCODONE TAB* 5 MG TAB PO PRN (06:34)
[2017-10-25] MEDS ORDERED: Ondansetron INJ* 2 MG/ML VIAL IV PRN (06:34)
[2017-10-25] MEDS ORDERED: Melatonin (NF) 3 MG TAB PO PRN (06:34)
[2017-10-25 07:56] LABS: ABS Basophils 0.1 10^3/ul (0-0.2); ABS Eosinophils 0.2 10^3/ul (0-0.6); ABS Lymphocytes 0.9 10^3/ul (1.0-4.8); ABS Monocytes 1.1 10^3/ul (0-0.8); ABS Neutrophils 10.7 10^3/ul (1.5-7.7); ABS Nucleated RBC 0 10^3/ul; Eosinophil % 1.4 % (0-6); Hematocrit 21 % (35-47); Hemoglobin 6.9 g/dl (12.0-16.0); Lymphocyte % 7.1 % (25-47); Mean Corpuscular HGB Conc 33 g/dl (31-36); Mean Corpuscular Hemoglobin 30 pg (27-31); Mean Corpuscular Volume 91 fL (80-97); Mean Platelet Volume 9 um3 (7.4-10.4); Nucleated Red Blood Cells % 0.1; Platelet Count 120 10^3/ul (150-450); Red Blood Count 2.29 10^6/ul (4.0-5.4); Red Cell Distribution Width 18 % (10.5-15)
[2017-10-25] MEDS: NS 0.9% 1000 ML* 1,000 ML IV SCH ×2 (09:07→20:25)
--- NOTE | 2017-10-25 10:47 | PN ---
Progress Note - Progress Note Date of Service: 10/25/17 SOAP: Subjective: discharged yesterday, took shower, went to sleep on couch and woke up at 1 am with bag full of blood. Hb dropped 2 points. bag currently blood free. Objective: Vital Signs Temp Pulse Resp BP Pulse Ox 96.9 F 94 16 114/57 100 10/25/17 08:14 10/25/17 08:14 10/25/17 08:48 10/25/17 08:14 10/25/17 08:14 sitting up in nad perr eomi op moist cta bl s1 s2 nl soft, midline defect, bag without any blood no le edema A+O x 3, grossly nonfocal neurological exam Laboratory Results - last 24 hr 10/25/17 10/25/17 10/25/17 01:45 01:45 01:45 WBC 13.9 H RBC 2.67 L Hgb 8.0 L Hct 24 L MCV 91 MCH 30 MCHC 33 RDW 18 H Plt Count 137 L MPV 9 Neut % (Auto) 78.3 Lymph % (Auto) 7.4 L [place] % (Auto) 11.0 H Eos % (Auto) 2.6 Baso % (Auto) 0.7 Absolute Neuts (auto) 10.9 H Absolute Lymphs (auto) 1.0 Absolute Monos (auto) 1.5 H Absolute Eos (auto) 0.4 Absolute Basos (auto) 0.1 Absolute Nucleated RBC 0 Nucleated RBC % 0.1 INR (Anticoag Therapy) 1.10 H APTT 20.9 L Sodium 131 L Potassium 4.4 Chloride 109 Carbon Dioxide 16 L Anion Gap 6 BUN 11 Creatinine 0.95 Est GFR ( Amer) 78.0 Est GFR (Non-Af Amer) 60.6 BUN/Creatinine Ratio 11.6 Glucose 171 H Calcium 7.7 L Total Bilirubin 1.90 H AST 32 ALT 19 Alkaline Phosphatase 186 H Total Protein 4.4 L Albumin 2.0 L Globulin 2.4 Albumin/Globulin Ratio 0.8 L Blood Type Antibody Screen Crossmatch 10/25/17 10/25/17 07:43 07:43 WBC 13.0 H RBC 2.29 L Hgb 6.9 L Hct 21 L MCV 91 MCH 30 MCHC 33 RDW 18 H Plt Count 120 L MPV 9 Neut % (Auto) 82.7 Lymph % (Auto) 7.1 L [place] % (Auto) 8.2 H Eos % (Auto) 1.4 Baso % (Auto) 0.6 Absolute Neuts (auto) 10.7 H Absolute Lymphs (auto) 0.9 L Absolute Monos (auto) 1.1 H Absolute Eos (auto) 0.2 Absolute Basos (auto) 0.1 Absolute Nucleated RBC 0 Nucleated RBC % 0.1 INR (Anticoag Therapy) APTT Sodium Potassium Chloride Carbon Dioxide Anion Gap BUN Creatinine Est GFR ( Amer) Est GFR (Non-Af Amer) BUN/Creatinine Ratio Glucose Calcium Total Bilirubin AST ALT Alkaline Phosphatase Total Protein Albumin Globulin Albumin/Globulin Ratio Blood Type O Positive Antibody Screen Negative Crossmatch See Detail Assessment: 57 yo F w metastatic CRC with recurrent stomal bleeds of unclear etiology now 4 weeks out from Avastin therapy and off of all chemo given recurrent GI bleeds. I have discussed this at length with Dr. Richmond, Dr. Newell and Kika. At this point she has little QOL given recurrent admissions, and we can not even treat her cancer because of this. Given this it is reasonable to pursue surgical management, even if not ultimately successful. Kika is very much in agreement. We will need to keep her in house pending this given the increased pace of her bleeds. -transfuse 2 u PRBC today -recheck Hb in am unless bleeds again -no DVT prophylaxis given bleeds -no heparin flushes given bleeding
--- NOTE | 2017-10-25 20:50 | CONS ---
CC: Rambo Newell MD, KERIA * CONSULTATION REPORT: DATE OF CONSULT: 10/25/17 REFERRING PROVIDER: Dr. Rambo Newell. REASON FOR CONSULT: Recurrent peristomal bleeding. HISTORY OF PRESENT ILLNESS: Ms. Kika Cano is a very pleasant 57-year-old woman,well known to me, who presented several years ago with a perforated sigmoid colon cancer and underwent an emergent laparotomy with sigmoid colon resection and an end colostomy. At that time, she was also noted to have metastatic disease in her liver and she has been treated successfully over the last several years with chemotherapy as well as a right lobe liver resection done by Dr. Clayton Mulligan at [facility]. She has also received radiation to a localized area in the liver here at [facility] with Dr. Santana. She has been treated with Avastin over the past year. Over the past 4 to 6 months, she has developed some intermittent spontaneous bleeding from her peristomal area on the left lower quadrant. It was difficult to determine the exact location of bleeding, which was rather sudden in starting and stopping and not actually seen except once in the ER where it was controlled with several sutures. This bleeding has required several admissions to the hospital, however, over the past month the bleeding has become more frequent and she has required blood transfusions on each of these admissions. Also of note, 4 to 5 months ago, she developed ascites noted on ultrasound and subsequent CAT scan and after a workup by Dr. Newell, it was felt that she have developed portal hypertension (it was not malignant ascites)and this was treated medically with diuretics and beta-matias with successful resolution. A most recent CAT scan of the abdomen and pelvis done in August of this year showed some dilated mesenteric veins and Dr. Talbot from Inter[facility]iology had attempted to sclerose one of the veins up in the subcutaneous tissue in the peristomal area without success. Also noted was a ventral incisional mid-line hernia and a manjeet-stomal hernia containing small bowel. Her medication regimen consisted of spironolactone 50 mg b.i.d., Lasix 40 mg every day and nadolol [address] Newell had discussed her care with Dr. Isaak Trejo for assistance in management of this problem and she has been seen in [place] in the last several months for care of presumed portal hypertension which has been felt secondary to her operative procedure and possibly due to the malignancy and radiation although her PET scans have all shown no significant change in metastatic disease and she has responded well to the Avastin. Once again, last night she was re-admitted to the hospital with bleeding and a low H and H and has been admitted for blood transfusion. Discussion with the surgical team has been concerning, possible colostomy reversal as treatment for the bleeding as this bleeding has seemed to increase in frequency. She has been off her Avastin now for approximately 4 weeks. I discussed her care with Dr. Talbot again today at length regarding his evaluation. Review of the CAT scans as well as the ultrasounds that have been done over the past 6 months, show what he feels is diagnostic of portal hypertension with dilated mesenteric veins. I also discussed her care with her surgical oncologist at the [facility], Dr. Clayton Mulligan today. He is aware of her situation and I explained her increased frequency of peristomal bleeding. He agrees that this bleeding is secondary to the portal hypertension and we discussed the surgical option of colostomy reversal or even colostomy repositioning. He does not feel that the surgery is indicated as this will not solve the problem with the portal hypertension and she will continue to have the same issues postoperatively in addition due to the dilated mesenteric veins and portal hypertension which will make any surgery extremely high risk. His recommendation would be to make sure that the medical management of her portal hypertension, i.e. beta-matias and diuretic is completely optimized and if this is felt to be optimized and she continues to bleed, to proceed with a TIPS procedure for portal decompression which she is a candidate for, that would have to be done at tertiary care center and he feels that this is the only way that will adequately treat the peristomal bleeding and portal hypertension and that she would have problems with bleeding even after a colostomy reversal.. I also discussed this with Dr. Newell today from Oncology. He will investigate the medications that she is on now to see if there is any further changes that can be made and if this is not the case, I would recommend that she be transferred to either [place] or a tertiary care center where a TIPS procedure could done. Thank you for the consultation. We will follow her closely with you. [id number]/[facility] #: [id number] TANA
[2017-10-26] MEDS: NS 0.9% 1000 ML* 1,000 ML IV SCH (04:28)
[2017-10-26] MEDS: Omeprazole CAP* 20 MG PO SCH (05:25)
[2017-10-26 06:20] LABS: Hematocrit 25 % (35-47); Hemoglobin 8.7 g/dl (12.0-16.0); Mean Corpuscular HGB Conc 35 g/dl (31-36); Mean Corpuscular Hemoglobin 31 pg (27-31); Mean Corpuscular Volume 88 fL (80-97); Mean Platelet Volume 9 um3 (7.4-10.4); Platelet Count 102 10^3/ul (150-450); Red Blood Count 2.82 10^6/ul (4.0-5.4); Red Cell Distribution Width 17 % (10.5-15); White Blood Count 10.5 10^3/ul (3.5-10.8)
--- NOTE | 2017-10-26 12:27 | PN ---
Progress Note - Progress Note Date of Service: 10/26/17 SOAP: Subjective: [This is a 57 yo female with metastatic CRC with a colostomy in place who presents with recurrent peristomal bleeding. Patient has been admitted 10/03, and returned yesterday for the 3rd time. Patient's bleeding has resolved spontaneously on each occasion. Patient was seen by general surgery yesterday regarding possibility of ostomy reversal or revision. Her case was discussed with Dr Mulligan at [facility] who suggested her bleeding is likely due to mesenteric vein dilatation secondary to portal HTN and would benefit from TIPS if her medical therapy has been maximized. Patient's use of diuretics and BB have been limited by hypotension, and is currently treated with spironolactone only. Patient received 2U PRBCs yesterday and she has seen no additional bleeding. She feels bloated, but no abd pain, n/v. No lightheadedness or weakness. She is in agreement with the idea of a TIPS, but would like to be under the care of Dr Mulligan. Objective: Laboratory Results - last 24 hr 10/25/17 10/26/17 10/26/17 07:43 05:25 05:25 WBC 10.5 RBC 2.82 L Hgb 8.7 L Hct 25 L MCV 88 MCH 31 MCHC 35 RDW 17 H Plt Count 102 L MPV 9 Sodium 130 L Potassium 4.1 Chloride 110 Carbon Dioxide 17 L Anion Gap 3 BUN 10 Creatinine 0.79 Est GFR ( Amer) 96.5 Est GFR (Non-Af Amer) 75.0 BUN/Creatinine Ratio 12.7 Glucose 153 H Calcium 7.1 L Total Bilirubin 1.70 H AST 23 ALT 17 Alkaline Phosphatase 132 H Total Protein 4.0 L Albumin 1.8 L Globulin 2.2 Albumin/Globulin Ratio 0.8 L Blood Type O Positive Antibody Screen Negative Crossmatch See Detail Acetaminophen (Tylenol Tab*) 650 mg PO Q6H PRN PRN Reason: FEVER/PAIN Sodium Chloride (Ns 0.9% 1000 Ml*) 1,000 mls @ 125 mls/hr IV PER RATE [facility] Last Admin: 10/26/17 04:28 Dose: 125 mls/hr Melatonin (Melatonin (Nf)) 3 mg PO BEDTIME PRN; Protocol PRN Reason: Sleep Omeprazole (Prilosec Cap*) 20 mg PO DAILY@0600 [facility] Last Admin: 10/26/17 05:25 Dose: 20 mg Ondansetron HCl (Zofran Inj*) 4 mg IV Q6H PRN PRN Reason: NAUSEA Oxycodone HCl (Roxycodone Tab*) 5 mg PO Q4H PRN PRN Reason: PAIN Last Admin: 10/25/17 08:48 Dose: 5 mg [Gen: Relatively well appearing 57 yo female in NAD HEENT: NCAT, MMM, no oral lesions CV: RRR, no m/r/g Resp: Lungs CTA, no w/c/r GI: Abd slightly distended, multiple surgical scars and ostomy in place in LUQ, no obvious bleeding, nontender to palpation Ext: No edema Skin: No rashes] Assessment: [This is a 57 yo female with metastatic CRC most recently treated with Avastin, leukovorin and 5FU who presents for recurrent stomal bleeding.] Plan: [GI bleed - recurrent peristomal bleeding. Avastin was stopped ~5 weeks ago and unlikely to be contributing to continued bleeding. Now s/p 2U PRBCs with stable Hgb and no additional bleeding observed. Extensive discussion between surgical teams here and [place]. Recommendation from Dr Mulligan at [facility] is not to proceed with revision of the stoma or ostomy reversal at this time, but instead focus on improving portal HTN via medical therapy and/or TIPS as mesenteric vein dilation may be contributing to her recurrent bleeding. Will attempt diuresis and reintroduction of BB at this time. Therapy has previously been limited by hypotension in the past. Dr Mulligan suggested use of albumin to support blood pressure during diuresis. Drug doses may need to be titrated. If additional bleeding is noted, patient will need to be transferred for TIPS. Metastatic CRC - chemotherapies including Avastin have been held at this time DVT prophylaxis - chemical prophylaxis held d/t bleeding ]
[2017-10-26] MEDS: Spironolactone TAB* 25 MG PO SCH (16:06)
[2017-10-26] MEDS: Furosemide IV* 10 MG/ML 2 ML VIAL (20 MG) IV SCH (16:07)
[2017-10-27] MEDS: Omeprazole CAP* 20 MG PO SCH (04:51)
[2017-10-27 05:05] LABS: Hematocrit 25 % (35-47); Hemoglobin 8.5 g/dl (12.0-16.0); Mean Corpuscular HGB Conc 34 g/dl (31-36); Mean Corpuscular Hemoglobin 30 pg (27-31); Mean Corpuscular Volume 89 fL (80-97); Mean Platelet Volume 9 um3 (7.4-10.4); Platelet Count 114 10^3/ul (150-450); Red Blood Count 2.87 10^6/ul (4.0-5.4); Red Cell Distribution Width 16 % (10.5-15); White Blood Count 12.6 10^3/ul (3.5-10.8)
[2017-10-27 05:06] LABS: ABS Basophils 0.1 10^3/ul (0-0.2); ABS Eosinophils 0.4 10^3/ul (0-0.6); ABS Lymphocytes 0.9 10^3/ul (1.0-4.8); ABS Monocytes 1.6 10^3/ul (0-0.8); ABS Neutrophils 9.6 10^3/ul (1.5-7.7); ABS Nucleated RBC 0 10^3/ul; Eosinophil % 3.5 % (0-6); Nucleated Red Blood Cells % 0
[2017-10-27 05:17] LABS: EGFR Non-African American 69.9 (>60)
--- NOTE | 2017-10-27 09:08 | PN ---
Progress Note - Progress Note Date of Service: 10/27/17 SOAP: Subjective: tolerating diuretic and bblocker well without drop in bp yet. no bleeding. Objective: Vital Signs Temp Pulse Resp BP Pulse Ox 98.9 F 97 14 124/63 96 10/27/17 07:24 10/27/17 07:24 10/27/17 07:24 10/27/17 07:24 10/27/17 07:24 Intake & Output 10/25/17 10/26/17 10/27/17 10/28/17 06:59 06:59 06:59 06:59 Intake Total 1000 1299 3864 Output Total 625 1650 Balance 4840 768 4427 Weight 155 lb 155 lb Intake: IV Fluids 7154 392 5354 NS (0.9%) 482 2354 Oral 200 1510 Packed Cells 617 Output: Urine 625 1500 Colostomy 150 Other: Estimated Void Small sitting up in nad perr eomi op moist cta bl s1 s2 nl soft large with ventral hernia, no blood in ostomy bag no le edema a+O x 3, grossly nonfocal Laboratory Results - last 24 hr 10/27/17 10/27/17 04:52 04:52 WBC 12.6 H RBC 2.87 L Hgb 8.5 L Hct 25 L MCV 89 MCH 30 MCHC 34 RDW 16 H Plt Count 114 L MPV 9 Neut % (Auto) 76.4 Lymph % (Auto) 7.0 L [place] % (Auto) 12.6 H Eos % (Auto) 3.5 Baso % (Auto) 0.5 Absolute Neuts (auto) 9.6 H Absolute Lymphs (auto) 0.9 L Absolute Monos (auto) 1.6 H Absolute Eos (auto) 0.4 Absolute Basos (auto) 0.1 Absolute Nucleated RBC 0 Nucleated RBC % 0 Sodium 131 L Potassium 3.9 Chloride 108 Carbon Dioxide 18 L Anion Gap 5 BUN 10 Creatinine 0.84 Est GFR ( Amer) 89.9 Est GFR (Non-Af Amer) 69.9 BUN/Creatinine Ratio 11.9 Glucose 132 H Calcium 7.5 L Magnesium 2.0 Acetaminophen (Tylenol Tab*) 650 mg PO Q6H PRN PRN Reason: FEVER/PAIN Furosemide (Lasix Iv*) 20 mg IV DAILY [facility] Last Admin: 10/26/17 16:07 Dose: 20 mg Heparin Sodium (Porcine) (Heparin Flush Port ([place])) 5 ml FLUSH DAILY [facility] PRN Reason: Protocol Last Admin: 10/26/17 16:07 Dose: 5 ml Melatonin (Melatonin (Nf)) 3 mg PO BEDTIME PRN; Protocol PRN Reason: Sleep Nadolol (Corgard Tab*) 40 mg PO DAILY [facility] Omeprazole (Prilosec Cap*) 20 mg PO DAILY@0600 [facility] Last Admin: 10/27/17 04:51 Dose: 20 mg Ondansetron HCl (Zofran Inj*) 4 mg IV Q6H PRN PRN Reason: NAUSEA Oxycodone HCl (Roxycodone Tab*) 5 mg PO Q4H PRN PRN Reason: PAIN Last Admin: 10/25/17 08:48 Dose: 5 mg Spironolactone (Aldactone Tab*) 25 mg PO DAILY [facility] Last Admin: 10/26/17 16:06 Dose: 25 mg Assessment: 57 yo female with metastatic CRC most recently treated with 5fu/avastin 4.5 weeks ago who presents for recurrent stomal bleeding. plan to try to optomize portal HTN in attempt to stop bleeding and if not transfer for TIPS. Plan: portal HTN: cont nadolol, IV lasix and spironolactone. tolerating BP lipscomb to day follow I+Os carefully if bleeds will need txr to [place] for TIPS Metastatic CRC - chemotherapies including Avastin have been held at this time DVT prophylaxis - chemical prophylaxis held d/t bleeding full code ]
[2017-10-27] MEDS: Nadolol TAB* 40 MG PO SCH (09:09)
[2017-10-27] MEDS: Furosemide IV* 10 MG/ML 2 ML VIAL (20 MG) IV SCH (09:10)
[2017-10-27] MEDS: Spironolactone TAB* 25 MG PO SCH (09:10)
[2017-10-28] MEDS: Omeprazole CAP* 20 MG PO SCH (05:15)
[2017-10-28 05:51] LABS: Hematocrit 25 % (35-47); Hemoglobin 8.5 g/dl (12.0-16.0); Mean Corpuscular HGB Conc 34 g/dl (31-36); Mean Corpuscular Hemoglobin 30 pg (27-31); Mean Corpuscular Volume 88 fL (80-97); Mean Platelet Volume 9 um3 (7.4-10.4); Platelet Count 122 10^3/ul (150-450); Red Cell Distribution Width 17 % (10.5-15); White Blood Count 8.4 10^3/ul (3.5-10.8)
[2017-10-28 06:02] LABS: EGFR Non-African American 92.3 (>60)
--- NOTE | 2017-10-28 08:43 | PN ---
Progress Note - Progress Note Date of Service: 10/28/17 SOAP: Subjective: no bleeding as of yet and tolerating diuresis. bp on low side but asymptomatic with it. stoma with some darkened spots on it, ?if could be from silvidene put on in ER. Objective: Vital Signs Temp Pulse Resp BP Pulse Ox 98.6 F 74 16 99/53 98 10/28/17 07:39 10/28/17 07:39 10/28/17 07:39 10/28/17 07:39 10/28/17 07:39 lying flat in nad perr eomi op moist cta s1 s2 nl soft stoma very beefy, dark regions on inferior region, brown formed stool no LE edema A+O x 3 Laboratory Results - last 24 hr 10/28/17 10/28/17 05:20 05:20 WBC 8.4 RBC 2.80 L Hgb 8.5 L Hct 25 L MCV 88 MCH 30 MCHC 34 RDW 17 H Plt Count 122 L MPV 9 Sodium 131 L Potassium 3.6 Chloride 108 Carbon Dioxide 19 L Anion Gap 4 BUN 11 Creatinine 0.66 Est GFR ( Amer) 118.7 Est GFR (Non-Af Amer) 92.3 BUN/Creatinine Ratio 16.7 Glucose 157 H Calcium 7.7 L Magnesium 2.1 Acetaminophen (Tylenol Tab*) 650 mg PO Q6H PRN PRN Reason: FEVER/PAIN Furosemide (Lasix Iv*) 20 mg IV BID [facility] Heparin Sodium (Porcine) (Heparin Flush Port (Ivad)) 5 ml FLUSH DAILY [facility] PRN Reason: Protocol Last Admin: 10/27/17 09:10 Dose: 5 ml Melatonin (Melatonin (Nf)) 3 mg PO BEDTIME PRN; Protocol PRN Reason: Sleep Nadolol (Corgard Tab*) 40 mg PO DAILY [facility] Last Admin: 10/27/17 09:09 Dose: 40 mg Omeprazole (Prilosec Cap*) 20 mg PO DAILY@0600 [facility] Last Admin: 10/28/17 05:15 Dose: 20 mg Ondansetron HCl (Zofran Inj*) 4 mg IV Q6H PRN PRN Reason: NAUSEA Oxycodone HCl (Roxycodone Tab*) 5 mg PO Q4H PRN PRN Reason: PAIN Last Admin: 03/01/18 08:48 Dose: 5 mg Potassium Chloride (Klor Con Er Tab*) 20 meq PO BID [facility] Spironolactone (Aldactone Tab*) 25 mg PO DAILY [facility] Last Admin: 10/27/17 09:10 Dose: 25 mg Intake & Output 10/26/17 10/27/17 10/28/17 10/29/17 06:59 06:59 06:59 06:59 Intake Total 1299 3864 2080 Output Total 625 1650 2435 Balance 674 2214 -355 Weight 155 lb Intake: IV Fluids 482 2354 NS (0.9%) 482 2354 Oral 200 1510 2080 Packed Cells 617 Output: Urine 625 1500 2210 Colostomy 150 225 Other: Estimated Void Small Assessment: 57 yo female with metastatic CRC most recently treated with 5fu/avastin 4.5 weeks ago who presents for recurrent stomal bleeding. plan to try to optimize portal HTN in attempt to stop bleeding and if not transfer for TIPS. she seems to be tolerating this well. stoma still very beefy and edematous so will increase lasix in attempt to dec portal HTN Plan: portal HTN: cont nadolol, IV lasix and spironolactone. add kcl today follow I+Os carefully if bleeds will need txr to [place] for TIPS Metastatic CRC - chemotherapies including Avastin have been held at this time DVT prophylaxis - chemical prophylaxis held d/t bleeding full code ]
[2017-10-28] MEDS: Potassium Chlor TAB* 20 MEQ TAB.ER PO SCH ×2 (09:28→20:33)
[2017-10-28] MEDS: Nadolol TAB* 40 MG PO SCH (09:29)
[2017-10-28] MEDS: Spironolactone TAB* 25 MG PO SCH (09:32)
[2017-10-28] MEDS: Furosemide IV* 10 MG/ML 2 ML VIAL (20 MG) IV SCH ×2 (09:32→20:33)
[2017-10-29] MEDS: Omeprazole CAP* 20 MG PO SCH (05:09)
[2017-10-29 05:19] LABS: ABS Basophils 0.1 10^3/ul (0-0.2); ABS Eosinophils 0.6 10^3/ul (0-0.6); ABS Lymphocytes 0.7 10^3/ul (1.0-4.8); ABS Neutrophils 5.7 10^3/ul (1.5-7.7); ABS Nucleated RBC 0 10^3/ul; Eosinophil % 7.2 % (0-6); Hematocrit 24 % (35-47); Hemoglobin 8.2 g/dl (12.0-16.0); Lymphocyte % 8.7 % (25-47); Mean Corpuscular HGB Conc 34 g/dl (31-36); Mean Corpuscular Hemoglobin 30 pg (27-31); Mean Corpuscular Volume 87 fL (80-97); Mean Platelet Volume 9 um3 (7.4-10.4); Nucleated Red Blood Cells % 0; Platelet Count 128 10^3/ul (150-450); Red Blood Count 2.75 10^6/ul (4.0-5.4); Red Cell Distribution Width 17 % (10.5-15); White Blood Count 8.1 10^3/ul (3.5-10.8)
[2017-10-29 05:34] LABS: EGFR Non-African American 77.3 (>60)
[2017-10-29] MEDS: Potassium Chlor TAB* 20 MEQ TAB.ER PO SCH ×2 (08:13→20:08)
[2017-10-29] MEDS: Spironolactone TAB* 25 MG PO SCH (08:13)
[2017-10-29] MEDS: Furosemide IV* 10 MG/ML 2 ML VIAL (20 MG) IV SCH (08:13)
[2017-10-29] MEDS: Nadolol TAB* 40 MG PO SCH (08:13)
[2017-10-29] MEDS ORDERED: Spironolactone TAB* 25 MG PO ONE (12:29)
--- NOTE | 2017-10-29 12:36 | PN ---
Progress Note - Progress Note Date of Service: 10/29/17 SOAP: Subjective: [Patient has not seen any bleeding since admission. Tolerating diuresis well. Patient reports little improvement in abdominal girth and is also noting some increasing LE edema. No c/o dizziness or abd pain.] Objective: [ Vital Signs: Temp Pulse Resp BP Pulse Ox 97.9 F 79 16 108/61 100 10/29/17 07:30 10/29/17 08:13 10/29/17 08:43 10/29/17 08:13 10/29/17 07:30 Acetaminophen (Tylenol Tab*) 650 mg PO Q6H PRN PRN Reason: FEVER/PAIN Furosemide (Lasix Iv*) 40 mg IV BID [facility] Heparin Sodium (Porcine) (Heparin Flush Port (Ivad)) 5 ml FLUSH DAILY [facility] PRN Reason: Protocol Last Admin: 10/29/17 08:14 Dose: 5 ml Melatonin (Melatonin (Nf)) 3 mg PO BEDTIME PRN; Protocol PRN Reason: Sleep Nadolol (Corgard Tab*) 40 mg PO DAILY [facility] Last Admin: 10/29/17 08:13 Dose: 40 mg Omeprazole (Prilosec Cap*) 20 mg PO DAILY@0600 [facility] Last Admin: 10/29/17 05:09 Dose: 20 mg Ondansetron HCl (Zofran Inj*) 4 mg IV Q6H PRN PRN Reason: NAUSEA Oxycodone HCl (Roxycodone Tab*) 5 mg PO Q4H PRN PRN Reason: PAIN Last Admin: 10/25/17 08:48 Dose: 5 mg Potassium Chloride (Klor Con Er Tab*) 20 meq PO BID [facility] Last Admin: 10/29/17 08:13 Dose: 20 meq Spironolactone (Aldactone Tab*) 100 mg PO DAILY [facility] Spironolactone (Aldactone Tab*) 50 mg PO ONCE ONE Stop: 10/29/17 12:30 Laboratory Results - last 24 hr 10/29/17 10/29/17 05:00 05:00 WBC 8.1 RBC 2.75 L Hgb 8.2 L Hct 24 L MCV 87 MCH 30 MCHC 34 RDW 17 H Plt Count 128 L MPV 9 Neut % (Auto) 70.7 Lymph % (Auto) 8.7 L Payne % (Auto) 12.5 H Eos % (Auto) 7.2 H Baso % (Auto) 0.9 Absolute Neuts (auto) 5.7 Absolute Lymphs (auto) 0.7 L Absolute Monos (auto) 1.0 H Absolute Eos (auto) 0.6 Absolute Basos (auto) 0.1 Absolute Nucleated RBC 0 Nucleated RBC % 0 Sodium 132 L Potassium 3.5 Chloride 108 Carbon Dioxide 20 L Anion Gap 4 BUN 13 Creatinine 0.77 Est GFR ( Amer) 99.4 Est GFR (Non-Af Amer) 77.3 BUN/Creatinine Ratio 16.9 Glucose 142 H Calcium 7.7 L Magnesium 2.1 Total Bilirubin 1.10 H AST 29 ALT 19 Alkaline Phosphatase 194 H Total Protein 4.5 L Albumin 1.9 L Globulin 2.6 Albumin/Globulin Ratio 0.7 L Gen: Well appearing 57 yo female in NAD, accompanied by her HEENT: NCAT, MMM CV: RRR, no m/r/g Resp: lungs CTA Abd: abd distended, but soft and non-TTP, ostomy in LUQ, no obvious bleeding Ext: 1+ LLE edema, trace RLE edema Skin: No rashes] Assessment: [This is a 57 yo female with metastatic CRC, most recently treated with 5FU and avastin, who presented with recurrent peristomal bleeding. Now treating portal HTN with diuresis to decrease pressure in the mesenteric venous system that may be contributing to her recurrent bleeding.] Plan: [1. Recurrent peristomal bleeding - Hgb stable, no gross blood since admission. s/p 2U PRBCs 2. Portal HTN - cont diuresis, she appears to be tolerating well. sBP in [id number], but asx. She has not noted a large improvement in the size of her abd , and actually noting new edema in her legs. Will increase diuretic doses, start low Na diet and start daily weights for improved monitoring. Will also assess patency of her IVC filter with doppler US as that may be contributing to resistent edema if partially occluded 3. Metastatic CRC - chemotherapy held at this time 4. DVT prophylaxis - chemical prophylaxis held due to recurrent bleeding at this time]
[2017-10-29] MEDS: Furosemide IV* 10 MG/ML VIAL (40 MG) IV SCH (20:08)
[2017-10-29] MEDS ORDERED: Furosemide IV* 10 MG/ML 2 ML VIAL (20 MG) IV SCH (21:00)
[2017-10-30] MEDS: Omeprazole CAP* 20 MG PO SCH (05:46)
[2017-10-30] MEDS: Spironolactone TAB* 25 MG PO SCH (09:00)
[2017-10-30] MEDS: Potassium Chlor TAB* 20 MEQ TAB.ER PO SCH ×2 (09:01→21:03)
[2017-10-30] MEDS: Furosemide IV* 10 MG/ML VIAL (40 MG) IV SCH ×2 (09:01→21:03)
[2017-10-30] MEDS: Nadolol TAB* 40 MG PO SCH (09:01)
[2017-10-30 09:57] LABS: ABS Basophils 0.1 10^3/ul (0-0.2); ABS Eosinophils 0.7 10^3/ul (0-0.6); ABS Lymphocytes 0.8 10^3/ul (1.0-4.8); ABS Monocytes 1.2 10^3/ul (0-0.8); ABS Neutrophils 7.1 10^3/ul (1.5-7.7); ABS Nucleated RBC 0 10^3/ul; Eosinophil % 6.7 % (0-6); Hematocrit 28 % (35-47); Hemoglobin 9.4 g/dl (12.0-16.0); Lymphocyte % 8.2 % (25-47); Mean Corpuscular HGB Conc 33 g/dl (31-36); Mean Corpuscular Hemoglobin 29 pg (27-31); Mean Corpuscular Volume 88 fL (80-97); Mean Platelet Volume 9 um3 (7.4-10.4); Nucleated Red Blood Cells % 0; Platelet Count 171 10^3/ul (150-450); Red Blood Count 3.22 10^6/ul (4.0-5.4); Red Cell Distribution Width 16 % (10.5-15); White Blood Count 9.8 10^3/ul (3.5-10.8)
[2017-10-30 10:12] LABS: EGFR Non-African American 70.9 (>60)
--- NOTE | 2017-10-30 12:32 | RAD ---
Indication: Assess patency of IVC filter. History of gastrointestinal malignancy with liver metastasis. Comparison: September 17, 2017 CT. Technique: Ultrasound with Doppler of the inferior vena cava and common iliac veins. Report: Acoustic window at the inferior vena cava is limited due to body habitus, dermal surgical scarring, and bowel gas. The inferior vena cava filter present on the September 17, 2017 CT not visualized likely on a technical basis. The visualized proximal, mid, and distal segments of the inferior vena cava demonstrate flow on color Doppler. Spectral wave form of the inferior segment of the inferior vena cava demonstrates preserved respiratory phasicity consistent with patent conduit to the RIGHT atrium. Patent bilateral common iliac veins. IMPRESSION: 1. No compelling primary or secondary evidence for IVC occlusion. 2. The inferior vena cava filter present on the September 17, 2017 CT not visualized likely on a technical basis. If clinically indicated current position of the IVC filter be assessed with an abdomen radiograph.
[2017-10-31] MEDS: Omeprazole CAP* 20 MG PO SCH (05:26)
[2017-10-31] MEDS ORDERED: Potassium Chlor TAB* 20 MEQ TAB.ER PO ONE (06:40)
[2017-10-31] MEDS ORDERED: Potassium Chloride IV* 40 MEQ in NS 0.9% 250 ML* 250 ML IVPB ONE (07:30)
[2017-10-31] MEDS ORDERED: NS 0.9% 250 ML* 250 ML ONE (08:24)
[2017-10-31] MEDS: Nadolol TAB* 40 MG PO SCH (09:06)
[2017-10-31] MEDS: Spironolactone TAB* 25 MG PO SCH (09:06)
[2017-10-31] MEDS: Furosemide IV* 10 MG/ML VIAL (40 MG) IV SCH ×2 (09:06→20:16)
[2017-10-31] MEDS: Potassium Chlor TAB* 20 MEQ TAB.ER PO SCH ×2 (09:07→20:15)
[2017-10-31 10:06] LABS: EGFR Non-African American 78.4 (>60)
--- NOTE | 2017-10-31 17:50 | PN ---
Progress Note - Progress Note Date of Service: 10/31/17 SOAP: Subjective: [Patient offers no new complaints. No bleeding. She is diuressing appropriately. Still has noted edema in her lower extremities and feels bloated. No n/v/d. No dizziness with change in position.] Objective: [ Laboratory Results - last 24 hr 10/31/17 10/31/17 10/31/17 05:28 08:00 09:02 Sodium 139 136 Potassium 2.6 L* 4.2 D Chloride 120 H 109 Carbon Dioxide 16 L 22 Anion Gap 3 5 BUN 11 15 Creatinine 0.46 L 0.76 Est GFR ( Amer) 180.1 100.9 Est GFR (Non-Af Amer) 140.0 78.4 BUN/Creatinine Ratio 23.9 H 19.7 Glucose 78 118 H Calcium 5.1 L* 8.1 L Ionized Calcium 4.47 L Magnesium 1.9 Vital Signs Temp Pulse Resp BP Pulse Ox 97.7 F 79 19 95/60 100 10/31/17 15:45 10/31/17 15:45 10/31/17 15:45 10/31/17 15:45 10/31/17 15:45 Acetaminophen (Tylenol Tab*) 650 mg PO Q6H PRN PRN Reason: FEVER/PAIN Furosemide (Lasix Iv*) 40 mg IV BID [facility] Last Admin: 10/31/17 09:06 Dose: 40 mg Heparin Sodium (Porcine) (Heparin Flush Port (Ivad)) 5 ml FLUSH DAILY [facility] PRN Reason: Protocol Last Admin: 10/31/17 11:10 Dose: 5 ml Heparin Sodium (Porcine) (Heparin Flush Port (Ivad)) 5 ml FLUSH DAILY PRN; Protocol PRN Reason: BLOOD DRAWS Last Admin: 10/31/17 05:27 Dose: 5 ml Melatonin (Melatonin (Nf)) 3 mg PO BEDTIME PRN; Protocol PRN Reason: Sleep Nadolol (Corgard Tab*) 40 mg PO DAILY [facility] Last Admin: 10/31/17 09:06 Dose: 40 mg Omeprazole (Prilosec Cap*) 20 mg PO DAILY@0600 [facility] Last Admin: 10/31/17 05:26 Dose: 20 mg Ondansetron HCl (Zofran Inj*) 4 mg IV Q6H PRN PRN Reason: NAUSEA Oxycodone HCl (Roxycodone Tab*) 5 mg PO Q4H PRN PRN Reason: PAIN Last Admin: 10/25/17 08:48 Dose: 5 mg Potassium Chloride (Klor Con Er Tab*) 20 meq PO BID [facility] Last Admin: 10/31/17 09:07 Dose: Not Given Spironolactone (Aldactone Tab*) 100 mg PO DAILY [facility] Last Admin: 10/31/17 09:06 Dose: 100 mg Gen: 57 yo female in NAD, accompanied by her HEENT: MMM CV: RRR, no m/r/g Resp: lungs CTA, no w/c/r Abd: distended, but soft, non tender, ostomy in LUQ, no evidence of bleeding Ext: LE edema, L>R, slightly improved Skin: No rashes] Assessment: [This is a 57 yo female with metastatic CRC, most recently treated with 5FU and avastin, who presented with recurrent peristomal bleeding. Now treating portal HTN with diuresis to decrease pressure in the mesenteric venous system that may be contributing to her recurrent bleeding.] Plan: [1. Recurrent peristomal bleeding - Hgb stable, no gross blood since admission. s/p 2U PRBCs 2. Portal HTN - cont diuresis, she appears to be tolerating well. sBP in [id number], but asx. US shows no evidence of IVC occlusion Weight loss of 1kg noted 3. Metastatic CRC - chemotherapy held at this time 4. DVT prophylaxis - chemical prophylaxis held due to recurrent bleeding at this time]
[2017-11-01] MEDS: Omeprazole CAP* 20 MG PO SCH (05:22)
[2017-11-01 06:02] LABS: ABS Basophils 0.1 10^3/ul (0-0.2); ABS Eosinophils 0.5 10^3/ul (0-0.6); ABS Lymphocytes 0.7 10^3/ul (1.0-4.8); ABS Monocytes 0.9 10^3/ul (0-0.8); ABS Nucleated RBC 0 10^3/ul; Eosinophil % 7.8 % (0-6); Hematocrit 23 % (35-47); Lymphocyte % 11.5 % (25-47); Mean Corpuscular HGB Conc 34 g/dl (31-36); Mean Corpuscular Hemoglobin 30 pg (27-31); Mean Corpuscular Volume 87 fL (80-97); Mean Platelet Volume 9 um3 (7.4-10.4); Nucleated Red Blood Cells % 0; Platelet Count 144 10^3/ul (150-450); Red Blood Count 2.69 10^6/ul (4.0-5.4); Red Cell Distribution Width 17 % (10.5-15); White Blood Count 6.2 10^3/ul (3.5-10.8)
[2017-11-01 06:11] LABS: EGFR Non-African American 71.9 (>60)
[2017-11-01] MEDS: Nadolol TAB* 40 MG PO SCH (09:22)
[2017-11-01] MEDS: Potassium Chlor TAB* 20 MEQ TAB.ER PO SCH ×2 (09:22→21:14)
[2017-11-01] MEDS: Spironolactone TAB* 25 MG PO SCH (09:22)
[2017-11-01] MEDS: Furosemide IV* 10 MG/ML VIAL (40 MG) IV SCH ×2 (09:39→21:15)
--- NOTE | 2017-11-01 11:34 | PN ---
Progress Note - Progress Note Date of Service: 11/01/17 SOAP: Subjective: [Patient reports excellent diuresis overnight. Her LE edema has improved and her abdomen feels softer. Still denies bleeding. No lightheadedness with the diuresis.] Objective: [ Acetaminophen (Tylenol Tab*) 650 mg PO Q6H PRN PRN Reason: FEVER/PAIN Furosemide (Lasix Iv*) 40 mg IV BID [facility] Last Admin: 11/01/17 09:39 Dose: 40 mg Heparin Sodium (Porcine) (Heparin Flush Port (Ivad)) 5 ml FLUSH DAILY [facility] PRN Reason: Protocol Last Admin: 11/01/17 09:48 Dose: 5 ml Heparin Sodium (Porcine) (Heparin Flush Port (Ivad)) 5 ml FLUSH DAILY PRN; Protocol PRN Reason: BLOOD DRAWS Last Admin: 11/01/17 05:22 Dose: 5 ml Melatonin (Melatonin (Nf)) 3 mg PO BEDTIME PRN; Protocol PRN Reason: Sleep Nadolol (Corgard Tab*) 40 mg PO DAILY [facility] Last Admin: 11/01/17 09:22 Dose: 40 mg Omeprazole (Prilosec Cap*) 20 mg PO DAILY@0600 [facility] Last Admin: 11/01/17 05:22 Dose: 20 mg Ondansetron HCl (Zofran Inj*) 4 mg IV Q6H PRN PRN Reason: NAUSEA Potassium Chloride (Klor Con Er Tab*) 20 meq PO BID [facility] Last Admin: 11/01/17 09:22 Dose: 20 meq Spironolactone (Aldactone Tab*) 100 mg PO DAILY [facility] Last Admin: 11/01/17 09:22 Dose: 100 mg Laboratory Results - last 24 hr 10/31/17 11/01/17 11/01/17 09:02 05:40 05:40 WBC 6.2 RBC 2.69 L Hgb 8.0 L Hct 23 L MCV 87 MCH 30 MCHC 34 RDW 17 H Plt Count 144 L MPV 9 Neut % (Auto) 65.0 Lymph % (Auto) 11.5 L [place] % (Auto) 14.7 H Eos % (Auto) 7.8 H Baso % (Auto) 1.0 Absolute Neuts (auto) 4.0 Absolute Lymphs (auto) 0.7 L Absolute Monos (auto) 0.9 H Absolute Eos (auto) 0.5 Absolute Basos (auto) 0.1 Absolute Nucleated RBC 0 Nucleated RBC % 0 Sodium 136 135 Potassium 4.2 D 3.9 Chloride 109 108 Carbon Dioxide 22 23 Anion Gap 5 4 BUN 15 16 Creatinine 0.76 0.82 Est GFR ( Amer) 100.9 92.4 Est GFR (Non-Af Amer) 78.4 71.9 BUN/Creatinine Ratio 19.7 19.5 Glucose 118 H 124 H Calcium 8.1 L 7.9 L Magnesium 1.9 1.9 Acetaminophen (Tylenol Tab*) 650 mg PO Q6H PRN PRN Reason: FEVER/PAIN Furosemide (Lasix Iv*) 40 mg IV BID [facility] Last Admin: 11/01/17 09:39 Dose: 40 mg Heparin Sodium (Porcine) (Heparin Flush Port (Ivad)) 5 ml FLUSH DAILY [facility] PRN Reason: Protocol Last Admin: 11/01/17 09:48 Dose: 5 ml Heparin Sodium (Porcine) (Heparin Flush Port (Ivad)) 5 ml FLUSH DAILY PRN; Protocol PRN Reason: BLOOD DRAWS Last Admin: 11/01/17 05:22 Dose: 5 ml Melatonin (Melatonin (Nf)) 3 mg PO BEDTIME PRN; Protocol PRN Reason: Sleep Nadolol (Corgard Tab*) 40 mg PO DAILY [facility] Last Admin: 11/01/17 09:22 Dose: 40 mg Omeprazole (Prilosec Cap*) 20 mg PO DAILY@0600 [facility] Last Admin: 11/01/17 05:22 Dose: 20 mg Ondansetron HCl (Zofran Inj*) 4 mg IV Q6H PRN PRN Reason: NAUSEA Potassium Chloride (Klor Con Er Tab*) 20 meq PO BID [facility] Last Admin: 11/01/17 09:22 Dose: 20 meq Spironolactone (Aldactone Tab*) 100 mg PO DAILY [facility] Last Admin: 11/01/17 09:22 Dose: 100 mg Gen: 57 yo female in NAD HEENT: MMM CV: RRR, no m/r/g Resp: lungs CTA, no w/c/r Abd: distended, but softer, non tender, ostomy in LUQ, no evidence of bleeding Ext: trace LLE edema, no RLE edema Skin: No rashes] Assessment: [This is a 57 yo female with metastatic CRC, most recently treated with 5FU and avastin, who presented with recurrent peristomal bleeding. Now treating portal HTN with diuresis to decrease pressure in the mesenteric venous system that may be contributing to her recurrent bleeding.] Plan: [1. Recurrent peristomal bleeding - Hgb stable, no gross blood since admission. s/p 2U PRBCs 2. Portal HTN - cont diuresis, she appears to be tolerating well. sBP in [id number], but asx. US shows no evidence of IVC occlusion Weight loss of 3kg noted over last 24h 3. Metastatic CRC - chemotherapy held at this time 4. DVT prophylaxis - chemical prophylaxis held due to recurrent bleeding at this time Dispo: Anticipate dc home tomorrow with oral diuretic regimen]
[2017-11-02 05:28] LABS: EGFR Non-African American 77.3 (>60)
[2017-11-02] MEDS: Omeprazole CAP* 20 MG PO SCH (05:36)
[2017-11-02] MEDS: Furosemide IV* 10 MG/ML VIAL (40 MG) IV SCH ×2 (08:21→09:45)
[2017-11-02 09:39] VITALS: BP 100/55
[2017-11-02] MEDS: Nadolol TAB* 40 MG PO SCH (09:45)
[2017-11-02] MEDS: Spironolactone TAB* 25 MG PO SCH (09:45)
[2017-11-02] MEDS: Potassium Chlor TAB* 20 MEQ TAB.ER PO SCH (09:45)
--- NOTE | 2017-11-02 17:05 | DS ---
CC: Dr. Newell; Dr. Richmond; Dr. Mulligan at [facility] * DISCHARGE SUMMARY: DATE OF ADMISSION: 10/25/17 DATE OF DISCHARGE: 11/02/17 ATTENDING PHYSICIAN: Efraín Youssef MD.* (DICTATED BY CHUCHO GUZMÁN) PRIMARY ONCOLOGIST: Rambo Newell MD CONSULTING SURGEON: Bandar Richmond MD DISCHARGING PROVIDER: CHUCHO Guzmán PRIMARY DISCHARGE DIAGNOSES: 1. Recurrent peristomal bleeding. 2. Acute blood loss anemia status post transfusion of 2 units of packed red blood cells. 3. Portal hypertension. 4. Metastatic colorectal cancer. DISCHARGE MEDICATIONS: 1. Ferrous sulfate 650 mg p.o. daily. 2. Lasix 40 mg p.o. twice daily. 3. Nadolol 40 mg p.o. daily. 4. Zofran 4 mg p.o. 4 times daily as needed for nausea and vomiting. 5. Potassium chloride 20 mEq p.o. daily. 6. Spironolactone 100 mg p.o. daily. Medication Changes: 1. Started Lasix. 2. Resumed nadolol. 3. Increased potassium. 4. Increased spironolactone. HOSPITAL IMAGING: Ultrasound of the abdomen does not demonstrate evidence of IVC occlusion. HOSPITAL COURSE: This is a 57-year-old female with metastatic colorectal cancer , most recently treated with Avastin and fluorouracil, both of which have been held for at least 6 weeks at this time, who presented to the emergency department with recurrent GI bleed. This is the patient's third hospitalization within the last several weeks with recurrent bleeding. The source of bleeding appears to be near her ostomy site. The patient has undergone prior imaging, which demonstrated dilatation of the mesenteric venous system associated with portal hypertension. Due to frequency of her bleeding, extensive conversation were had between General Surgery, Oncology, and Hepatobiliary Surgery at [facility] regarding appropriate management and specifically whether she would benefit from an ostomy revision or take-down procedure. Dr. Mulligan who is familiar with [facility] suggested that surgical procedure would likely be of little benefit as she would be high risk for recurrent bleeding due to the presence of her portal hypertension and instead I recommended management of her portal hypertension either with medical therapy or TIPS procedure. The patient had previously been on diuretic therapy but doses have been limited due to hypotension. The patient was restarted on diuretic therapy during her hospitalization with close monitoring of her blood pressure and electrolytes. She had systolic pressures between 95 and 105 mmHg on average but was asymptomatic with this. Her diuretic doses were titrated up with good effect. The patient diuresed a total of 3 kilograms during her hospitalization with noted improvement in lower extremity edema and abdominal distention. She had no evidence of recurrent bleeding during her hospitalization. She did receive 2 units of packed red blood cells at the time of admission, but did not require any additional transfusions. DISPOSITION AND FOLLOWUP PLAN: The patient is being discharged to home where she lives with her . Diuretic doses are as described above. The patient received extensive counseling in terms of weight monitoring at home and specifically recommended that she check her weight each day and record the value and contact the office if she has an increase of 2 pounds in 1 day or 5 pounds in 1 week. Her chemotherapy agents have been on hold for 6 weeks at this time and she will follow up with her primary oncologist, Dr. Newell next week to discuss treatment planning in more detail. If the patient has evidence of recurrent bleeding, we will plan to transfer to tertiary center for TIPS procedure at that time. CHUCHO GUZMÁN [id number]/[facility] #: [id number] TA[place]
--- NOTE | 2017-11-03 19:53 | HP ---
H&P (Free Text) History and Physical: 10/25/2017 Note: This is an interval H&P, please see the more complete H&P dated 2017 copied to the bottom for more details. PCP: Yani Hodges MD Date/Time: 10/25/2017 06 CC: Recurrent lower GI bleed HPI: Mrs Cano is a 57YO female HX colon CA s/p colostomy with several recent admission for bright red blood from the ostomy requiring transfusion. She was discharged from her most recent admission 10/24/2017 and returns today with recurrent bright red blood per ostomy, fatigue, and generalized weakness. She will be readmitted for further observation and consideration for definitive management. PMedHx, PSurgHx, SocHx, & FamHx: reviewed & unchanged compared to H&P dated . Ambulatory Orders Ferrous Sulfate TAB* 650 mg PO DAILY 01/27/16 Ondansetron ODT TAB* [Zofran 4 MG Odt TAB*] 4 mg PO QID PRN 05/31/17 Furosemide TAB* [Lasix TAB*] 40 mg PO BID #60 tab 11/02/17 Nadolol TAB* [Corgard TAB*] 40 mg PO DAILY #30 tab 11/02/17 Potassium Chlor TAB* [Potassium Chlor TAB 20 MEQ*] 20 meq PO DAILY #30 tab.er Spironolactone 100 mg PO DAILY #30 tablet 11/02/17 Allergies Iodinated Contrast- Oral and IV Dye Allergy (Verified 10/03/17 01:42) Hives HAY FEVER Allergy (Uncoded 09/17/17 08:26) Eyes Itchy/Swollen/Red/Watery ROS: as above, otherwise reviewed and all were negative vitals: Vital Signs Temp 36.6 C 11/02/17 07:54 Pulse 79 11/02/17 09:33 Resp 16 11/02/17 08:00 BP 100/55 11/02/17 09:33 Pulse Ox 98 11/02/17 07:54 Constitutional: NAD, normally developed, overweight white female HEENM: atraumatic; sclera/conjunctiva: anicteric/clear; hearing: intact; oropharynx: clear, mucosa moist Neck: soft tissue: non-tender; thyroid: normal Pulmonary: clear to auscultation bilaterally, good aeration, no accessory muscle use CV: RR/RR, normal S1S2, no carotid bruit, no jugular venous distention, 2+ B DP/ PT, no edema Abdominal: soft, non-distended, non-tender, no rebound/guarding/rigidity, normoactive bowel sounds, no hepatosplenomegaly or masses, no costovertebral angle tenderness; LLQ ostomy Musculoskeletal: general: grossly intact, no tenderness to palpation Integumental: normal appearance and texture of exposed skin Psychiatric orientation: AA&O to PPS affect: flat mood: cooperative, pleasant eye contact: good content: reliable responses: timely insight: good Testing: Lab Results 10/25/17 10/25/17 10/25/17 Range/Units 01:45 01:45 01:45 WBC 13.9 H (3.5-10.8) 10^3/ul RBC 2.67 L (4.0-5.4) 10^6/ul Hgb 8.0 L (12.0-16.0) g/dl Hct 24 L (35-47) % MCV 91 (80-97) fL MCH 30 (27-31) pg MCHC 33 (31-36) g/dl RDW 18 H (10.5-15) % Plt Count 137 L (150-450) 10^3/ul MPV 9 (7.4-10.4) um3 Neut % (Auto) 78.3 (38-83) % Lymph % (Auto) 7.4 L (25-47) % [place] % (Auto) 11.0 H (0-7) % Eos % (Auto) 2.6 (0-6) % Baso % (Auto) 0.7 (0-2) % Absolute Neuts (auto) 10.9 H (1.5-7.7) 10^3/ul Absolute Lymphs (auto) 1.0 (1.0-4.8) 10^3/ul Absolute Monos (auto) 1.5 H (0-0.8) 10^3/ul Absolute Eos (auto) 0.4 (0-0.6) 10^3/ul Absolute Basos (auto) 0.1 (0-0.2) 10^3/ul Absolute Nucleated RBC 0 10^3/ul Nucleated RBC % 0.1 INR (Anticoag Therapy) 1.10 H (0.77-1.02) APTT 20.9 L (26.0-36.3) seconds Sodium 131 L (133-145) mmol/L Potassium 4.4 (3.5-5.0) mmol/L Chloride 109 (101-111) mmol/L Carbon Dioxide 16 L (22-32) mmol/L Anion Gap 6 (2-11) mmol/L BUN 11 (6-24) mg/dL Creatinine 0.95 (0.51-0.95) mg/dL Est GFR ( Amer) 78.0 (>60) Est GFR (Non-Af Amer) 60.6 (>60) BUN/Creatinine Ratio 11.6 (8-20) Glucose 171 H (70-100) mg/dL Calcium 7.7 L (8.6-10.3) mg/dL Ionized Calcium (4.65-5.28) mg/dL Magnesium (1.9-2.7) mg/dL Total Bilirubin 1.90 H (0.2-1.0) mg/dL AST 32 (13-39) U/L ALT 19 (7-52) U/L Alkaline Phosphatase 186 H (34-104) U/L Total Protein 4.4 L (6.4-8.9) g/dL Albumin 2.0 L (3.2-5.2) g/dL Globulin 2.4 (2-4) g/dL Albumin/Globulin Ratio 0.8 L (1-3) Blood Type Antibody Screen Crossmatch 10/25/17 10/25/17 10/26/17 Range/Units 07:43 07:43 05:25 WBC 13.0 H 10.5 (3.5-10.8) 10^3/ul RBC 2.29 L 2.82 L (4.0-5.4) 10^6/ul Hgb 6.9 L 8.7 L (12.0-16.0) g/dl Hct 21 L 25 L (35-47) % MCV 91 88 (80-97) fL MCH 30 31 (27-31) pg MCHC 33 35 (31-36) g/dl RDW 18 H 17 H (10.5-15) % Plt Count 120 L 102 L (150-450) 10^3/ul MPV 9 9 (7.4-10.4) um3 Neut % (Auto) 82.7 (38-83) % Lymph % (Auto) 7.1 L (25-47) % [place] % (Auto) 8.2 H (0-7) % Eos % (Auto) 1.4 (0-6) % Baso % (Auto) 0.6 (0-2) % Absolute Neuts (auto) 10.7 H (1.5-7.7) 10^3/ul Absolute Lymphs (auto) 0.9 L (1.0-4.8) 10^3/ul Absolute Monos (auto) 1.1 H (0-0.8) 10^3/ul Absolute Eos (auto) 0.2 (0-0.6) 10^3/ul Absolute Basos (auto) 0.1 (0-0.2) 10^3/ul Absolute Nucleated RBC 0 10^3/ul Nucleated RBC % 0.1 INR (Anticoag Therapy) (0.77-1.02) APTT (26.0-36.3) seconds Sodium (133-145) mmol/L Potassium (3.5-5.0) mmol/L Chloride (101-111) mmol/L Carbon Dioxide (22-32) mmol/L Anion Gap (2-11) mmol/L BUN (6-24) mg/dL Creatinine (0.51-0.95) mg/dL Est GFR ( Amer) (>60) Est GFR (Non-Af Amer) (>60) BUN/Creatinine Ratio (8-20) Glucose (70-100) mg/dL Calcium (8.6-10.3) mg/dL Ionized Calcium (4.65-5.28) mg/dL Magnesium (1.9-2.7) mg/dL Total Bilirubin (0.2-1.0) mg/dL AST (13-39) U/L ALT (7-52) U/L Alkaline Phosphatase (34-104) U/L Total Protein (6.4-8.9) g/dL Albumin (3.2-5.2) g/dL Globulin (2-4) g/dL Albumin/Globulin Ratio (1-3) Blood Type O Positive Antibody Screen Negative Crossmatch See Detail 10/26/17 10/27/17 10/27/17 Range/Units 05:25 04:52 04:52 WBC 12.6 H (3.5-10.8) 10^3/ul RBC 2.87 L (4.0-5.4) 10^6/ul Hgb 8.5 L (12.0-16.0) g/dl Hct 25 L (35-47) % MCV 89 (80-97) fL MCH 30 (27-31) pg MCHC 34 (31-36) g/dl RDW 16 H (10.5-15) % Plt Count 114 L (150-450) 10^3/ul MPV 9 (7.4-10.4) um3 Neut % (Auto) 76.4 (38-83) % Lymph % (Auto) 7.0 L (25-47) % [place] % (Auto) 12.6 H (0-7) % Eos % (Auto) 3.5 (0-6) % Baso % (Auto) 0.5 (0-2) % Absolute Neuts (auto) 9.6 H (1.5-7.7) 10^3/ul Absolute Lymphs (auto) 0.9 L (1.0-4.8) 10^3/ul Absolute Monos (auto) 1.6 H (0-0.8) 10^3/ul Absolute Eos (auto) 0.4 (0-0.6) 10^3/ul Absolute Basos (auto) 0.1 (0-0.2) 10^3/ul Absolute Nucleated RBC 0 10^3/ul Nucleated RBC % 0 INR (Anticoag Therapy) (0.77-1.02) APTT (26.0-36.3) seconds Sodium 130 L 131 L (133-145) mmol/L Potassium 4.1 3.9 (3.5-5.0) mmol/L Chloride 110 108 (101-111) mmol/L Carbon Dioxide 17 L 18 L (22-32) mmol/L Anion Gap 3 5 (2-11) mmol/L BUN 10 10 (6-24) mg/dL Creatinine 0.79 0.84 (0.51-0.95) mg/dL Est GFR ( Amer) 96.5 89.9 (>60) Est GFR (Non-Af Amer) 75.0 69.9 (>60) BUN/Creatinine Ratio 12.7 11.9 (8-20) Glucose 153 H 132 H (70-100) mg/dL Calcium 7.1 L 7.5 L (8.6-10.3) mg/dL Ionized Calcium (4.65-5.28) mg/dL Magnesium 2.0 (1.9-2.7) mg/dL Total Bilirubin 1.70 H (0.2-1.0) mg/dL AST 23 (13-39) U/L ALT 17 (7-52) U/L Alkaline Phosphatase 132 H (34-104) U/L Total Protein 4.0 L (6.4-8.9) g/dL Albumin 1.8 L (3.2-5.2) g/dL Globulin 2.2 (2-4) g/dL Albumin/Globulin Ratio 0.8 L (1-3) Blood Type Antibody Screen Crossmatch 10/28/17 10/28/17 10/29/17 Range/Units 05:20 05:20 05:00 WBC 8.4 8.1 (3.5-10.8) 10^3/ul RBC 2.80 L 2.75 L (4.0-5.4) 10^6/ul Hgb 8.5 L 8.2 L (12.0-16.0) g/dl Hct 25 L 24 L (35-47) % MCV 88 87 (80-97) fL MCH 30 30 (27-31) pg MCHC 34 34 (31-36) g/dl RDW 17 H 17 H (10.5-15) % Plt Count 122 L 128 L (150-450) 10^3/ul MPV 9 9 (7.4-10.4) um3 Neut % (Auto) 70.7 (38-83) % Lymph % (Auto) 8.7 L (25-47) % [place] % (Auto) 12.5 H (0-7) % Eos % (Auto) 7.2 H (0-6) % Baso % (Auto) 0.9 (0-2) % Absolute Neuts (auto) 5.7 (1.5-7.7) 10^3/ul Absolute Lymphs (auto) 0.7 L (1.0-4.8) 10^3/ul Absolute Monos (auto) 1.0 H (0-0.8) 10^3/ul Absolute Eos (auto) 0.6 (0-0.6) 10^3/ul Absolute Basos (auto) 0.1 (0-0.2) 10^3/ul Absolute Nucleated RBC 0 10^3/ul Nucleated RBC % 0 INR (Anticoag Therapy) (0.77-1.02) APTT (26.0-36.3) seconds Sodium 131 L (133-145) mmol/L Potassium 3.6 (3.5-5.0) mmol/L Chloride 108 (101-111) mmol/L Carbon Dioxide 19 L (22-32) mmol/L Anion Gap 4 (2-11) mmol/L BUN 11 (6-24) mg/dL Creatinine 0.66 (0.51-0.95) mg/dL Est GFR ( Amer) 118.7 (>60) Est GFR (Non-Af Amer) 92.3 (>60) BUN/Creatinine Ratio 16.7 (8-20) Glucose 157 H (70-100) mg/dL Calcium 7.7 L (8.6-10.3) mg/dL Ionized Calcium (4.65-5.28) mg/dL Magnesium 2.1 (1.9-2.7) mg/dL Total Bilirubin (0.2-1.0) mg/dL AST (13-39) U/L ALT (7-52) U/L Alkaline Phosphatase (34-104) U/L Total Protein (6.4-8.9) g/dL Albumin (3.2-5.2) g/dL Globulin (2-4) g/dL Albumin/Globulin Ratio (1-3) Blood Type Antibody Screen Crossmatch 10/29/17 10/30/17 10/30/17 Range/Units 05:00 09:30 09:30 WBC 9.8 (3.5-10.8) 10^3/ul RBC 3.22 L (4.0-5.4) 10^6/ul Hgb 9.4 L (12.0-16.0) g/dl Hct 28 L (35-47) % MCV 88 (80-97) fL MCH 29 (27-31) pg MCHC 33 (31-36) g/dl RDW 16 H (10.5-15) % Plt Count 171 (150-450) 10^3/ul MPV 9 (7.4-10.4) um3 Neut % (Auto) 72.3 (38-83) % Lymph % (Auto) 8.2 L (25-47) % [place] % (Auto) 11.9 H (0-7) % Eos % (Auto) 6.7 H (0-6) % Baso % (Auto) 0.9 (0-2) % Absolute Neuts (auto) 7.1 (1.5-7.7) 10^3/ul Absolute Lymphs (auto) 0.8 L (1.0-4.8) 10^3/ul Absolute Monos (auto) 1.2 H (0-0.8) 10^3/ul Absolute Eos (auto) 0.7 H (0-0.6) 10^3/ul Absolute Basos (auto) 0.1 (0-0.2) 10^3/ul Absolute Nucleated RBC 0 10^3/ul Nucleated RBC % 0 INR (Anticoag Therapy) (0.77-1.02) APTT (26.0-36.3) seconds Sodium 132 L 134 (133-145) mmol/L Potassium 3.5 3.8 (3.5-5.0) mmol/L Chloride 108 107 (101-111) mmol/L Carbon Dioxide 20 L 22 (22-32) mmol/L Anion Gap 4 5 (2-11) mmol/L BUN 13 15 (6-24) mg/dL Creatinine 0.77 0.83 (0.51-0.95) mg/dL Est GFR ( Amer) 99.4 91.1 (>60) Est GFR (Non-Af Amer) 77.3 70.9 (>60) BUN/Creatinine Ratio 16.9 18.1 (8-20) Glucose 142 H 124 H (70-100) mg/dL Calcium 7.7 L 8.3 L (8.6-10.3) mg/dL Ionized Calcium (4.65-5.28) mg/dL Magnesium 2.1 2.0 (1.9-2.7) mg/dL Total Bilirubin 1.10 H 1.30 H (0.2-1.0) mg/dL AST 29 40 H (13-39) U/L ALT 19 24 (7-52) U/L Alkaline Phosphatase 194 H 235 H (34-104) U/L Total Protein 4.5 L 5.4 L (6.4-8.9) g/dL Albumin 1.9 L 2.3 L (3.2-5.2) g/dL Globulin 2.6 3.1 (2-4) g/dL Albumin/Globulin Ratio 0.7 L 0.7 L (1-3) Blood Type Antibody Screen Crossmatch 10/31/17 10/31/17 10/31/17 Range/Units 05:28 08:00 09:02 WBC (3.5-10.8) 10^3/ul RBC (4.0-5.4) 10^6/ul Hgb (12.0-16.0) g/dl Hct (35-47) % MCV (80-97) fL MCH (27-31) pg MCHC (31-36) g/dl RDW (10.5-15) % Plt Count (150-450) 10^3/ul MPV (7.4-10.4) um3 Neut % (Auto) (38-83) % Lymph % (Auto) (25-47) % [place] % (Auto) (0-7) % Eos % (Auto) (0-6) % Baso % (Auto) (0-2) % Absolute Neuts (auto) (1.5-7.7) 10^3/ul Absolute Lymphs (auto) (1.0-4.8) 10^3/ul Absolute Monos (auto) (0-0.8) 10^3/ul Absolute Eos (auto) (0-0.6) 10^3/ul Absolute Basos (auto) (0-0.2) 10^3/ul Absolute Nucleated RBC 10^3/ul Nucleated RBC % INR (Anticoag Therapy) (0.77-1.02) APTT (26.0-36.3) seconds Sodium 139 136 (133-145) mmol/L Potassium 2.6 L* 4.2 D (3.5-5.0) mmol/L Chloride 120 H 109 (101-111) mmol/L Carbon Dioxide 16 L 22 (22-32) mmol/L Anion Gap 3 5 (2-11) mmol/L BUN 11 15 (6-24) mg/dL Creatinine 0.46 L 0.76 (0.51-0.95) mg/dL Est GFR ( Amer) 180.1 100.9 (>60) Est GFR (Non-Af Amer) 140.0 78.4 (>60) BUN/Creatinine Ratio 23.9 H 19.7 (8-20) Glucose 78 118 H (70-100) mg/dL Calcium 5.1 L* 8.1 L (8.6-10.3) mg/dL Ionized Calcium 4.47 L (4.65-5.28) mg/dL Magnesium 1.9 (1.9-2.7) mg/dL Total Bilirubin (0.2-1.0) mg/dL AST (13-39) U/L ALT (7-52) U/L Alkaline Phosphatase (34-104) U/L Total Protein (6.4-8.9) g/dL Albumin (3.2-5.2) g/dL Globulin (2-4) g/dL Albumin/Globulin Ratio (1-3) Blood Type Antibody Screen Crossmatch 11/01/17 11/01/17 11/02/17 Range/Units 05:40 05:40 05:02 WBC 6.2 (3.5-10.8) 10^3/ul RBC 2.69 L (4.0-5.4) 10^6/ul Hgb 8.0 L (12.0-16.0) g/dl Hct 23 L (35-47) % MCV 87 (80-97) fL MCH 30 (27-31) pg MCHC 34 (31-36) g/dl RDW 17 H (10.5-15) % Plt Count 144 L (150-450) 10^3/ul MPV 9 (7.4-10.4) um3 Neut % (Auto) 65.0 (38-83) % Lymph % (Auto) 11.5 L (25-47) % [place] % (Auto) 14.7 H (0-7) % Eos % (Auto) 7.8 H (0-6) % Baso % (Auto) 1.0 (0-2) % Absolute Neuts (auto) 4.0 (1.5-7.7) 10^3/ul Absolute Lymphs (auto) 0.7 L (1.0-4.8) 10^3/ul Absolute Monos (auto) 0.9 H (0-0.8) 10^3/ul Absolute Eos (auto) 0.5 (0-0.6) 10^3/ul Absolute Basos (auto) 0.1 (0-0.2) 10^3/ul Absolute Nucleated RBC 0 10^3/ul Nucleated RBC % 0 INR (Anticoag Therapy) (0.77-1.02) APTT (26.0-36.3) seconds Sodium 135 136 (133-145) mmol/L Potassium 3.9 4.2 (3.5-5.0) mmol/L Chloride 108 106 (101-111) mmol/L Carbon Dioxide 23 25 (22-32) mmol/L Anion Gap 4 5 (2-11) mmol/L BUN 16 14 (6-24) mg/dL Creatinine 0.82 0.77 (0.51-0.95) mg/dL Est GFR ( Amer) 92.4 99.4 (>60) Est GFR (Non-Af Amer) 71.9 77.3 (>60) BUN/Creatinine Ratio 19.5 18.2 (8-20) Glucose 124 H 103 H (70-100) mg/dL Calcium 7.9 L 8.2 L (8.6-10.3) mg/dL Ionized Calcium (4.65-5.28) mg/dL Magnesium 1.9 (1.9-2.7) mg/dL Total Bilirubin (0.2-1.0) mg/dL AST (13-39) U/L ALT (7-52) U/L Alkaline Phosphatase (34-104) U/L Total Protein (6.4-8.9) g/dL Albumin (3.2-5.2) g/dL Globulin (2-4) g/dL Albumin/Globulin Ratio (1-3) Blood Type Antibody Screen Crossmatch Impression: 57F HX colon CA s/p colostomy with recurrentl stomal bleeding DIAGNOSIS & PLAN Primary recurrent stomal bleeding : trend H&H : consider surgical consult in AM : supportive care colon CA : management per oncology Admission Rational: inpatient for recurrent lower GI bleed not responding to conservative management; inappropriate for outpatient setting DVTp: SCDs, no anticoagulation given bleeding Code Status: full HCP: Note: This is an interval H&P, please see the more complete H&P dated 2017 copied to the bottom for more details. PCP: Yani Hodges MD Oncology: Latrice Newell MD Date/Time: 10/22/2016 231 CC: bleeding from stoma, blood loss anemia HPI: Mrs Cano is a 57YO female HX colon CA metastatic to liver s/p resection w / colostomy who was admitted to [facility] 10/03-10/04/2017 for blood loss anemia related to an arterial bleed sutured in the ED, discharged with an H&H of 8.5 after 2 units pRBCs. She had 2 episodes of bleeding Sunday the , one reportedly in Dr Richmond's office and again after returning home. 2 more episodes occurred on Sunday and none on Sunday. Today she had a bleeding episode and noticed increasing fatigue for which she presented to [facility] with finding of HGB 6.7. She denies chest and abdominal pain, SOB, palpitations, light-headedness, and other new or acute issues. Ostomy output has otherwise been normal. Dr Richmond saw her in the ED and agreed with observation & transfusion. PMedHx, PSurgHx, SocHx, & FamHx: reviewed & unchanged compared to H&P dated 02/2018 Ambulatory Orders Nursing to reconcile. Ferrous Sulfate TAB* 650 mg PO DAILY 01/27/16 Ondansetron ODT TAB* [Zofran 4 MG Odt TAB*] 4 mg PO QID PRN 05/31/17 Potassium Chlor TAB* [Klor Con ER TAB 10 MEQ*] 10 meq PO DAILY #30 tab.er Allergies Iodinated Contrast- Oral and IV Dye Allergy (Verified 10/03/17 01:42) Hives HAY FEVER Allergy (Uncoded 09/17/17 08:26) Eyes Itchy/Swollen/Red/Watery ROS: as above, otherwise reviewed and all were negative vitals: Vital Signs Temp 36.4 C 10/22/17 17:50 Pulse 78 10/22/17 21:00 Resp 17 10/22/17 21:00 BP 105/49 10/22/17 21:00 Pulse Ox 100 10/22/17 21:00 Intake & Output 10/21/17 10/22/17 10/22/17 23:59 11:59 23:59 Weight 70.307 kg Constitutional: NAD, normally developed, well-nourished white female HEENM: atraumatic; sclera/conjunctiva: anicteric/clear; hearing: clinically intact; oropharynx: clear, mucosa tacky Neck: soft tissue: non-tender; thyroid: normal Pulmonary: clear to auscultation bilaterally, good aeration, no accessory muscle use CV: RR/RR, normal S1S2, no carotid bruit, no jugular venous distention, 2+ B DP/ PT, no edema Abdominal: soft, non-distended, non-tender, no rebound/guarding/rigidity, normoactive bowel sounds, no hepatosplenomegaly or masses, no costovertebral angle tenderness; ostomy Musculoskeletal: general: grossly intact, no tenderness with palpation Integumental: pale appearing, normal texture of exposed skin Psychiatric orientation: AA&O to PPS affect: calm mood: cooperative/pleasant eye contact: good content: reliable responses: timely insight: good Testing: Lab Results 10/22/17 10/22/17 10/22/17 Range/Units 18:20 18:20 18:20 WBC 20.5 H (3.5-10.8) 10^3/ul RBC 2.15 L (4.0-5.4) 10^6/ul Hgb 6.7 L (12.0-16.0) g/dl Hct 21 L (35-47) % MCV 95 (80-97) fL MCH 31 (27-31) pg MCHC 33 (31-36) g/dl RDW 19 H (10.5-15) % Plt Count 188 (150-450) 10^3/ul MPV 10 (7.4-10.4) um3 Neut % (Auto) 74.3 (38-83) % Lymph % (Auto) 7.9 L (25-47) % [place] % (Auto) 15.6 H (0-7) % Eos % (Auto) 2.1 (0-6) % Baso % (Auto) 0.1 (0-2) % Absolute Neuts (auto) 15.0 H (1.5-7.7) 10^3/ul Absolute Lymphs (auto) 1.6 (1.0-4.8) 10^3/ul Absolute Monos (auto) 3.1 H (0-0.8) 10^3/ul Absolute Eos (auto) 0.4 (0-0.6) 10^3/ul Absolute Basos (auto) 0 (0-0.2) 10^3/ul Absolute Nucleated RBC 0 10^3/ul Neutrophils % 77 (38-83) % Lymphocytes % 6 L (25-47) % Monocytes % 12 H (0-7) % Eosinophils % 2 (0-6) % Basophils % 3 H (0-2) % Nucleated RBC % 0.2 Normal RBC Morphology Not Reportable Polychromasia 1+ Hypochromasia 2+ Anisocytosis 2+ Hem Pathologist Commnt Pending INR (Anticoag Therapy) 1.07 H (0.77-1.02) APTT 21.1 L (26.0-36.3) seconds Sodium 128 L (133-145) mmol/L Potassium 3.8 (3.5-5.0) mmol/L Chloride 101 (101-111) mmol/L Carbon Dioxide 21 L (22-32) mmol/L Anion Gap 6 (2-11) mmol/L BUN 16 (6-24) mg/dL Creatinine 1.14 H (0.51-0.95) mg/dL Est GFR ( Amer) 63.2 (>60) Est GFR (Non-Af Amer) 49.1 (>60) BUN/Creatinine Ratio 14.0 (8-20) Glucose 137 H (70-100) mg/dL Lactic Acid (0.5-2.0) mmol/L Calcium 8.2 L (8.6-10.3) mg/dL Total Bilirubin 1.70 H (0.2-1.0) mg/dL AST 30 (13-39) U/L ALT 22 (7-52) U/L Alkaline Phosphatase 211 H (34-104) U/L Total Protein 5.2 L (6.4-8.9) g/dL Albumin 2.3 L (3.2-5.2) g/dL Globulin 2.9 (2-4) g/dL Albumin/Globulin Ratio 0.8 L (1-3) Blood Type Antibody Screen Crossmatch 10/22/17 10/22/17 Range/Units 18:20 18:20 WBC (3.5-10.8) 10^3/ul RBC (4.0-5.4) 10^6/ul Hgb (12.0-16.0) g/dl Hct (35-47) % MCV (80-97) fL MCH (27-31) pg MCHC (31-36) g/dl RDW (10.5-15) % Plt Count (150-450) 10^3/ul MPV (7.4-10.4) um3 Neut % (Auto) (38-83) % Lymph % (Auto) (25-47) % [place] % (Auto) (0-7) % Eos % (Auto) (0-6) % Baso % (Auto) (0-2) % Absolute Neuts (auto) (1.5-7.7) 10^3/ul Absolute Lymphs (auto) (1.0-4.8) 10^3/ul Absolute Monos (auto) (0-0.8) 10^3/ul Absolute Eos (auto) (0-0.6) 10^3/ul Absolute Basos (auto) (0-0.2) 10^3/ul Absolute Nucleated RBC 10^3/ul Neutrophils % (38-83) % Lymphocytes % (25-47) % Monocytes % (0-7) % Eosinophils % (0-6) % Basophils % (0-2) % Nucleated RBC % Normal RBC Morphology Polychromasia Hypochromasia Anisocytosis Hem Pathologist Commnt INR (Anticoag Therapy) (0.77-1.02) APTT (26.0-36.3) seconds Sodium (133-145) mmol/L Potassium (3.5-5.0) mmol/L Chloride (101-111) mmol/L Carbon Dioxide (22-32) mmol/L Anion Gap (2-11) mmol/L BUN (6-24) mg/dL Creatinine (0.51-0.95) mg/dL Est GFR ( Amer) (>60) Est GFR (Non-Af Amer) (>60) BUN/Creatinine Ratio (8-20) Glucose (70-100) mg/dL Lactic Acid 3.7 H* (0.5-2.0) mmol/L Calcium (8.6-10.3) mg/dL Total Bilirubin (0.2-1.0) mg/dL AST (13-39) U/L ALT (7-52) U/L Alkaline Phosphatase (34-104) U/L Total Protein (6.4-8.9) g/dL Albumin (3.2-5.2) g/dL Globulin (2-4) g/dL Albumin/Globulin Ratio (1-3) Blood Type O Positive Antibody Screen Negative Crossmatch See Detail Impression: 57F HX colon CA metastatic to liver s/p resection & colostomy with recurrent lower GI bleeding DIAGNOSIS & PLAN Primary lower GI bleeding from ostomy : transfuse 2 units pRBCs : trend H&H & lactic acid : continue iron supplementation : Lina Richmond MD consulted, will arrange follow up : supportive care suspect protein-calorie malnutrition : check pre-albumin in AM leukocytosis w/o s/s infection : likely stress reaction from acute anemia : trend Secondary colon CA w/ liver metastases : management per oncology Admission Rational: inpatient for recurrent lower GI bleed from ostomy requiring another transfusion; inappropriate for outpatient setting DVTp: SCDs, no anticoagulation 2nd acute bleeding Code Status: full HCP: --- History & Physical Patient: EVELINE CANO /Age: 10 1960 57 Medical Record#: [id number] Admission Date: 10/03/17 Provider: Annette Bond DO CC: Dr. Deana Hodges; Dr. Newell * HISTORY AND PHYSICAL: DATE OF ADMISSION: 10/03/17 PRIMARY CARE PROVIDER: Dr. Deana Hodges. ONCOLOGIST: Dr. Newell. CHIEF COMPLAINT: Bleeding from around colostomy. HISTORY OF PRESENT ILLNESS: Ms. Cano is a 57-year-old female who has a known history of metastatic colon cancer with liver mets, who is on Xeloda and Avastin , who presents to the emergency room after she was noted to have profuse bleeding from around her colostomy. The patient states that at approximately 7: 30 p.m. on 10/02/17, she noted that her colostomy bag was very full. She then noticed blood leaking out from around the side of the bag. She removed the bag and was found to be profusely bleeding from an area between the ostomy itself and her skin. The patient contacted 911 and she was brought to the emergency room for evaluation. The patient had an episode similar to this in March 2017. At that time, she just needed to apply pressure and the bleeding stopped. The patient needed to have two stitches placed by the ER provider and the bleeding has since stopped. The patient, however, was noted to have a hemoglobin of 7.7 in the emergency room. She had blood work performed on the morning of 10/02/17 for her liver doctor at [place] and, at that point, her hemoglobin was 12.2. The patient has also been hypotensive. She does state that she got up to walk to the bathroom. She noted when she got up to the bathroom, she felt okay; however, walking back, she did feel lightheaded. She denies any shortness of breath, she denies palpitations. She does note that on this past Sunday, she passed some what appeared to be old black blood and then had the now bright red blood. PAST MEDICAL HISTORY: Colon cancer with mets to liver. PAST SURGICAL HISTORY: 1. Partial colectomy with colostomy creation. 2. Partial liver resection. 3. Bile duct stents, now status post removal. 4. Appendectomy. ALLERGIES: IV CONTRAST DYE. MEDICATIONS: 1. Lasix 40 mg p.o. daily. 2. Spironolactone 50 mg p.o. twice daily. 3. Zofran ODT 4 mg p.o. 4 times daily p.r.n. nausea. 4. Nadolol 40 mg p.o. daily. 5. Ferrous sulfate 650 mg p.o. daily. FAMILY HISTORY: Mom is from unknown causes. Dad is also ; he had heart disease. SOCIAL HISTORY: The patient is a lifelong nonsmoker. She does not drink alcohol. She works at [employer] in the [employer]. She is . She has two children. REVIEW OF SYSTEMS: A complete 11-system review of systems is obtained. Pertinent positives and negatives are as per HPI. In addition, the patient did note some flu- like symptoms the week prior to admission with cough and diarrhea. She also complains of right shoulder pain, and states that she fell and injured her right shoulder on 08/27/17. PHYSICAL EXAMINATION GENERAL: The patient is a well-developed, middle-aged, jaundiced-appearing female lying in the stretcher, in no acute distress. VITAL SIGNS: Blood pressure 60/42, pulse 86, respirations 17, temp 97.7, O2 sat 98% on room air. HEENT: Pupils are equal and round. Extraocular muscles are intact. The patient has icteric sclera. There is no submandibular, cervical, or supraclavicular adenopathy. Thyroid is not enlarged. No thyroid nodules are noted. PULMONARY: Lungs are clear to auscultation bilaterally. CARDIAC: Normal S1, S2. Regular rate and rhythm. Heart sounds are quite distant. There is no lower extremity edema. ABDOMEN: Bowel sounds are present. Abdomen is soft, nontender, and nondistended. The patient's ostomy appliance is not removed at this time, but the bag is empty. MUSCULOSKELETAL: There is no cyanosis or clubbing of the digits. There is full active range of motion of all 4 extremities. SKIN: Warm and dry. She has no rashes. She is jaundiced. NEURO: Cranial nerves II through XII are grossly intact. Sensation is intact to light touch throughout. Strength is 5/5 and symmetric in both upper and lower extremities bilaterally. PSYCH: The patient is alert. She is oriented x3. Affect appears appropriate. LABORATORY DATA: WBC 6.8, hemoglobin 7.7, hematocrit 23, platelets 43. INR 2.54. Sodium 136, potassium 3.5, chloride 110, CO2 20, BUN 14, creatinine 1.25, glucose 126, calcium 7.1. Bilirubin 4.2, AST 25, ALT 20, alk phos 113, albumin 1.8. ASSESSMENT AND PLAN: Ms. Cano is a 57-year-old female who presented to the emergency room with complaints of bleeding around her ostomy and is found to have acute blood loss anemia. 1. Acute blood loss anemia. This is not a true GI bleed. Visible bleeding vessels were identified by Dr. Sanchez and were able to be sutured. The patient has two joeirl-sc-cttzb stitches in place. I do not think a GI consultation is required at this time. The patient is receiving 2 units of packed red blood cells. She will have a CBC obtained 1 hour after completing the last unit of blood. She will also have a followup CBC in the morning of 10/03/17. The patient is markedly hypotensive at this time; however, her mentation is normal and she denies feeling lightheaded or dizzy. I will monitor her blood pressure while she is receiving the 2 units of packed red blood cells; and if she does not improve her blood pressure with this, she will continue to receive boluses of normal saline. She has already received 3 L of normal saline. I suspect the patient's Avastin and possibly the Xeloda in combination with marked thrombocytopenia and elevated INR are what led to her bleeding episode. 2. Thrombocytopenia. The patient is chronically thrombocytopenic; however, her platelet currently is much worse than usual. In fact, on the morning of 02/11, the patient's platelet count was 76,000. It has since trended down to 43 ,000. I am going to hold off on transfusing platelets at this point; however, if she shows signs of continued bleeding with decreases in her platelet count, platelet transfusion can be considered. 3. Elevated INR. I suspect this is related to her underlying liver disease and , questionably, her chemotherapy agents. The patient will be given vitamin K 5 mg p.o. x1. A repeat INR will be obtained later in the morning of 10/03/17. 4. Elevated creatinine. I suspect this is from poor perfusion as the patient is quite hypotensive secondary to volume loss. Followup BMP will be obtained later in the morning of 10/03/17. As mentioned above, the patient has already received 3 L of normal saline and will be receiving 2 units of packed red blood cells. I suspect once her pressures and volume status are corrected, her creatinine will normalize. 5. Metastatic colon cancer. Management per Oncology. 6. Jaundice. The patient's bilirubin is elevated at 4.2. This is within the range of where she has been over the last 1 week or so, but higher than where her bilirubin has been most recently. The patient does see a liver doctor at [facility]. Further decisions will need to be made down the road about treatment options. 7. DVT prophylaxis. According to Adult Thrombosis Prophylaxis Risk Factor Assessment Guide, the patient has a total risk factor score of 3, making her high risk. SCDs alone will be utilized as DVT prophylaxis given her acute blood loss anemia. 8. Code status is full. TIME SPENT: 65 minutes were spent admitting this patient. [id number]/CPS #: [id number] <Electronically signed by Annette Bond DO> 10/11/17 0947 Annette Bond DO Dictated Date/Time: 10/03/17 0135 Transcribed Date/Time 10/03/17 0256 Copy to: CC: Annette Bond DO; Deana Hodges MD; Rambo Newell MD
== END 2017-11-02 11:43 | disposition home or self-care (01) | DRG 394 ==
LOC: ED 01:14 → SSU 06:26 → OBSVTOIN 10:48 → SSU 10-30 09:19
PROVIDERS: ADMIT Hospitalist; ATTEND Internal Medicine Hematology & Oncology
PROC: 30233N1 Transfusion of Nonautologous Red Blood Cells into Peripheral Vein, Percutaneous Approach (ICD-10-PCS; principal; 2017-10-25)
DX: K94.01 Colostomy hemorrhage (principal); C78.7 Secondary malignant neoplasm of liver and intrahepatic bile duct; D69.6 Thrombocytopenia, unspecified; K76.6 Portal hypertension; D62 Acute posthemorrhagic anemia; I95.9 Hypotension, unspecified; C18.9 Malignant neoplasm of colon, unspecified; H26.9 Unspecified cataract; K43.9 Ventral hernia without obstruction or gangrene; I86.8 Varicose veins of other specified sites; J30.1 Allergic rhinitis due to pollen; Y73.3 Surgical instruments, materials and gastroenterology and urology devices (including sutures) associated with adverse incidents; Y65.8 Other specified misadventures during surgical and medical care; R14.0 Abdominal distension (gaseous); R60.0 Localized edema; Y92.009 Unspecified place in unspecified non-institutional (private) residence as the place of occurrence of the external cause; Z86.718 Personal history of other venous thrombosis and embolism; Z91.041 Radiographic dye allergy status; Z90.49 Acquired absence of other specified parts of digestive tract; Z82.49 Family history of ischemic heart disease and other diseases of the circulatory system
CPT/HCPCS: 36415; 76705; 80048; 80053; 82330; 83735; 85025; 85027; 85610; 85730; 86850; 86900; 86901; 86922; 99232; 99233; 99239; 99285; A9270-GY; J1642; J1940; J3480; P9040

== ENCOUNTER 2017-11-27 13:36 | Inpatient (IN) | payer OTHER ==
[2017-11-27] MEDS ORDERED: Morphine INJ* 2 MG/ML 1 ML CARPUJECT IV PRN (14:08)
[2017-11-27] MEDS ORDERED: Ondansetron INJ* 2 MG/ML VIAL IV PRN (14:08)
--- OUTSIDE RECORDS SUMMARY | 2017-11-27 14:13 | XMS REPORT ---
:1960 External Reference #:[id number] Author Organization [facility] Address [address] [address] Phone [phone] Care Team Providers Name Role Phone Deana Hodges MD Primary Care Physician Unavailable Payers Type Date Identification Numbers Payment Provider Subscriber Commercial Expires: Policy Number: [employer] Kika Cano 2017 [id number] PayID: [id number] [address] [place] [address] Commercial Policy Number: [id number] [employer] Kika Cano PayID: [id number] [address] [place] [address] Problems Date Description Provider Status Onset: 01/27/2016 [...] With Children 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 Vital Signs Date Vital Result Comment 11/13/2017 Height 64 inches 5'4" Weight 160.00 lb Respiratory Rate 14 /min Pain Level 1 BMI (Body Mass Index) 27.5 kg/m2 10/19/2017 Heart Rate 86 /min BP Systolic [...] 1 finding Order Laboratory test 07/17/2016 Cytology Non-Part Time SEE RESULT BELOW 2 finding Basic Metabolic [...] [address]: Min Philip MD Acct: [id number] Unit: [id number] AGE: 56 Location: ENDO Re05/28/17 SEX: F Status: REG REF SPEC: [id number] LEA: 05/28/179432 SUBM DR: Min Philip MD REQ: [id number] RECD: 05/28/17-9138 STATUS: CHEN WOLFE DR: Deana Richmond MD [...] performed at Main Lab DEPARTMENT OF PATHOLOGY, [address] [place] [address] Perez Stern M.D. Director [facility] # [id number] 2 SEE RESULT BELOW Name: KIKA CANO : [address]: Rambo Newell MD Acct: [id number] Unit: [id number] AGE: 56 Location: SP Re07/17/16 SEX: F Status: REG REF SPEC: [id number] LEA: 07/17/160945 [facility] DR: Terence Talbot MD REQ: [id number] RECD: 07/17/16-999 STATUS: CHEN WOLFE DR: Rambo [...] performed at Main Lab DEPARTMENT OF PATHOLOGY, [address] [place] [address] Perez Stern M.D. Director CLIA # [id number] RUN DATE: 07/17/16 [facility] LAB LIVE PAGE 2 Patient: KIKA CANO [id number] (Continued) GROSS DESCRIPTION (Continued) GROSS DESCRIPTION Ultrasound guided, fine needle aspiration x 2 passes with 4 Alcohol fixed slide(s) and needle rinse in formalin for cell block. Signed (signature on file) Perez Stern MD 1340 END OF REPORT * ML=Testing performed at Main Lab DEPARTMENT OF PATHOLOGY, [address] [place] [address] Perez Stern M.D. Director [facility] # [id number] 3 Because ethnic data is not always [...] Code Description Status 05/28/2017 Colonoscopy Completed 05/04/2017 62132 Anoscopy Completed 01/28/2016 47028 Insertion Intravasular Vena Cava Filter,Endovascular Completed Approach 07/20/2015 94993 Colectomy Partial W/End Colostomy & Close Distal Completed Segment 11/08/2011 91576 Inject Tendon Sheath Or Ligament Aponeurosis Eg Plantar Completed Fascia 10/09/2011 65225 Rad Exam; Fingers Completed 09/25/2011 30193 Rad Exam; Fingers Completed 09/11/2011 53518 Rad Exam; Fingers Completed 08/31/2011 70015 Percutaneous Skeletal Fixation Of Unstable Phalangeal Completed Shaft FX 08/31/2011 71245 Percutaneous Skeletal Fixation Of Unstable Phalangeal Completed Shaft FX 08/29/2011 40450 Rad Exam; Fingers Completed Encounters Type Date Location Provider CPT E/M Dx Office Visit 10/25/2017 [facility] Niall Richmond, [address] K94.01 7:00a [facility] D50.0 Office Visit 10/23/2017 7:00a [facility] Anthony Reina, 575[address] K94.01 Of [facility] [place] D50.0 Office Visit 10/22/2017 2:34p [facility] [place], [address] K92.2 Assoc, Hospitalists Donal C18.9 C78.7 Z93.3 Office Visit 10/19/2017 2:00p [facility] Bandar Richmond, 88[address] K94.01 Of [facility] Office Visit 10/09/2017 3:40p [facility] Rambo Newell M.D. 68919 C19 Of [facility] C78.7 K94.01 K91.82 R60.0 Office Visit 10/03/2017 7:00a [facility] Bandar Richmond, 48893 K94.01 Of [facility] Office Visit 10/03/2017 7:00a [facility] Solis Jean, 33760 K94.01 Of [facility] [place] Office Visit 09/25/2017 1:30p [facility] [place] [address] S43.004A Of [facility] Office Visit 08/28/2017 2:15p [facility] [place] [address] S43.004A Of [facility] Office Visit 05/25/2017 1:00p [facility] Bandar Richmond, [address] C19 Of [facility] Z93.3 Office Visit 05/17/2017 7:00a [facility] Anthony Reina, 60426 K94.01 Of [facility] Office Visit 05/04/2017 3:15p [facility] [place] [address] C19 Of [facility] Office Visit 04/25/2017 2:45p [facility] [place] [address] C19 Of [facility] C78.7 R58 Office Visit 04/17/2017 8:45a [facility] [place] [address] C19 [facility] C78.7 Office Visit 03/28/2017 1:30p [facility] Terence Talbot, 59445 I86.2 Of [place] M.D. Office Visit 10/06/2016 1:45p [facility] Of Bandar Richmond, 24024 C19 [place] DESAI C78.7 Office Visit 04/11/2016 1:40p [facility] Rambo Newell M.D. 64022 C19 [place] [facility] [place] C78.7 Office Visit 01/27/2016 1:00p [facility] Terence Talbot, 06970 I82.402 Of [place] Office Visit 07/27/2015 1:35p [facility] Apolonia Garcia, 90948 K65.8 Assoc,pc Hospitalists Donal R06.82 C18.9 I82.402 Office Visit 07/26/2015 1:34p [facility] Loli Alcala, LUDWIG 14960 K65.8 Hospitalists R06.82 C18.9 I82.402 Office Visit 07/25/2015 1:34p [facility] Annette Bond, 61439 K65.8 Hospitalists Donal R06.82 C18.9 I82.402 Office Visit 07/24/2015 1:33p [facility] Annette Bond, 06081 K65.8 Hospitalists MRebecca R06.82 C18.9 A41.50 Office Visit 07/24/2015 1:32p [facility] Gregory Abreu D.O. 05250 K65.8 Hospitalists C18.9 Office Visit 07/23/2015 1:31p [facility] Gregory Abreu, 12165 J95.821 Hospitalists D.O. C18.9 K65.8 Office Visit 07/22/2015 1:31p [facility] Gregory Abreu, 07377 J95.821 Hospitalists D.O. C18.9 K65.8 F05 Office Visit 07/21/2015 1:30p [facility] Leonel Vogel, 57826 J95.821 Assoc,pc Hospitalists Donal A41.50 K65.8 C18.9 Office Visit 07/20/2015 1:30p [facility] Leonel Vogel, 18720 J95.821 Assoc,pc Hospitalists Donal K65.8 A41.50 C18.9 Office Visit 07/19/2015 1:29p [facility] Leonel [facility] 33409 J95.821 Assoc,annmarie Hospitalists Donal K65.8 C18.9 A41.50 Office Visit 12/19/2011 8:00a [facility] Georgina Chambers, 68184 816.01 Of Margarito [place] Office Visit 08/29/2011 8:30a [facility] Ramu Bates 19849 816.01 Of Sharif ShellPHueyAHuey-C Plan of Care 10/19/2017 - Bandar Richmond MDK94.01 Colostomy hemorrhageFollow up:2 weeks
[2017-11-27] MEDS: NS 0.9% 1000 ML* 1,000 ML IV SCH (15:12)
--- NOTE | 2017-11-27 16:12 | RAD ---
INDICATION: Small bowel obstruction COMPARISON: CT November 27, 2017 TECHNIQUE: A single view of the abdomen is submitted. FINDINGS: Bones: There are no acute bony findings. Soft tissues: The soft tissues appear normal. The psoas margins are sharp. Bowel gas pattern: There is a small bowel obstruction with mildly prominent air-filled loops of small bowel in the central abdomen appearing similar to the scanogram from the earlier CT. There is a small amount of gas in a normal caliber colon. There is an ostomy in the left lower quadrant Calcifications: There are no abnormal calcifications. Other: None IMPRESSION: SMALL BOWEL OBSTRUCTION WITHOUT SIGNIFICANT RADIOGRAPHIC CHANGE
[2017-11-27 16:35] LABS: ABS Basophils 0 10^3/ul (0-0.2); ABS Eosinophils 0.1 10^3/ul (0-0.6); ABS Lymphocytes 0.3 10^3/ul (1.0-4.8); ABS Monocytes 0.5 10^3/ul (0-0.8); ABS Neutrophils 4.4 10^3/ul (1.5-7.7); ABS Nucleated RBC 0 10^3/ul; Eosinophil % 1.4 % (0-6); Hematocrit 39 % (35-47); Hemoglobin 12.6 g/dl (12.0-16.0); Lymphocyte % 4.8 % (25-47); Mean Corpuscular HGB Conc 32 g/dl (31-36); Mean Corpuscular Hemoglobin 27 pg (27-31); Mean Corpuscular Volume 84 fL (80-97); Mean Platelet Volume 9.5 um3 (7.4-10.4); Nucleated Red Blood Cells % 0.1; Platelet Count 95 10^3/ul (150-450); Red Blood Count 4.65 10^6/ul (4.0-5.4); Red Cell Distribution Width 18 % (10.5-15); White Blood Count 5.3 10^3/ul (3.5-10.8)
[2017-11-27] MEDS: Heparin VIAL(*) 5000 UNITS/ML VIAL (FIVE THOUSAND) SUBCUT SCH (21:15)
--- NOTE | 2017-11-27 23:56 | CONS ---
CC: Dr. Koko Wray; Dr. Rambo Newell at [facility] * CONSULTATION REPORT: DATE OF CONSULT: 11/27/17 REASON FOR CONSULT: Small bowel obstruction. HISTORY OF PRESENT ILLNESS: Ms. Kika Cano is a very pleasant 57-year-old woman well known to me, who presented several years years afo with a perforated sigmoid colon cancer and underwent an emergent exploratory laparotomy with sigmoid colon resection and end colostomy. At that time, she was also noted to have metastatic disease in her liver and she has been treated successfully over the past several years with chemotherapy as well as right lobe liver resection done by Dr. Ambrocio Mulligan, [facility] in [place], [place]. She also received radiation therapy to a localized area in the liver here at [facility] [place] Santana. She was treated with Avastin over the past year. She has had problems with what has turned out to be portal hypertension most likely from her liver surgery and radiation that had caused some spontaneous bleeding from varices in the peristomal area on her abdominal wall, but this has been treated successfully with beta- blockers as well as diuretics and she has not had bleeding over the past six weeks or so. She has also had a longstanding ventral incision hernia as well as peristomal hernia and due to variety of circumstances this has not been electively repaired. Yesterday, she was doing well but overnight developed some right lower quadrant abdominal discomfort with nausea and subsequent vomiting. She has never had problems with this in the past. She has not noted significant change in the hernia size nor has she had tenderness over either area. She was seen in Dr. Newell's office today and she underwent a CT scan of the abdomen and pelvis. I did review these images. This showed once again a ventral incision hernia containing small bowel, which was distended. There is also a peristomal hernia with some distended bowel. There also appeared to be a transition point from the standard to collapsed small bowel in the right lower quadrant but it does not appear to be related to the incisional hernia. There were no other acute findings other than small amount of free fluid. She has been admitted to the oncology service, nasogastric tube was inserted and surgical consultation had been obtained. PAST MEDICAL HISTORY: 1. Stage IV colon cancer as per above. 2. Portal hypertension secondary to above. PAST SURGICAL HISTORY: 1. Cholecystectomy. 2. IVC filter placement. 3. Sigmoid colon resection with end colostomy. 4. Right lobe of liver resection 2015. 5. Alhulh-Z-ehnm placement. MEDICATIONS: Include: 1. Acetaminophen. 2. Adderall. 3. Ferrous sulfate. 4. Lasix. 5. Potassium. 6. Spironolactone. 7. Tramadol. 8. Zofran. 9. She was also taking Keytruda and is started on 11/20. ALLERGIES: She is allergic to IV DYE. SOCIAL HISTORY: She is . She does not smoke. She is a former drinker but has not drank alcohol in a long time. PHYSICAL EXAM: Temperature 97.3, pulse 64, blood pressure 116/68, respirations 16. In general, well developed, well nourished female, who appears to be in no apparent distress. Nasogastric tube is in place. She is quite pleasant, alert , and conversive. Her lungs were clear to auscultation with normal respiratory effort. Heart was with regular rate and rhythm. No murmurs, rubs, or gallops. Her abdomen is soft and nondistended. She has a midline incision from above the umbilicus down to the pubis. There is also well-healed right subcostal incision. There is an ostomy and end colostomy in the left lateral abdominal wall with an appliance in place. She had diminished bowel sounds throughout. She has some mild tenderness in the right lower quadrant without rebound or guarding. She has a ventral incisional hernia in the lower portion of the midline incision but this is easily reducible and nontender and I appreciate the fascial edges. There is what appears to be a peristomal hernia in the left and it is difficult for me to evaluate this or consider reduction. Extremities showed no cyanosis or edema. DIAGNOSTIC STUDIES/LAB DATA: Laboratory values include white blood count of 5.3 with hemoglobin of 12.6. Electrolytes, BUN and creatinine were all within normal limits with BUN and creatinine of 9 and 0.8. She has total bilirubin of 1.5, which is about average for her. Alkaline phosphatase is 205. She has an albumin of 2.8. I did review the CT scan of the abdomen and pelvis. IMPRESSION: Small bowel obstruction in a patient with stage IV colon cancer with the above oncologic and surgical history. On review of the CT scan, it appears that the bowel obstruction may actually be in the right lower quadrant where there is the transition point, which is unrelated to the hernia. This incisional hernia is easily reducible and there are no signs of incarceration and/or strangulation. I do not believe that there is a problem or obstructive process with the peristomal hernia. PLAN: At this point, I recommend continuing nasogastric tube, keeping her n.p.o. and IV fluid administration. Hopefully if this is an adhesive band, this will respond to nonoperative management. Certainly if this does not improve and she requires surgery, I also discussed with her consideration of transfer to a tertiary care center for higher level of care in light of her complicated oncologic history as well as her portal hypertension. She does have a hepatic surgeon at [facility] and we will discuss her care with him if necessary. For now, we will follow her closely with you. Thank you very much for this consultation. [id number]/ALONZO #: [id number] TANA
[2017-11-28] MEDS: Heparin VIAL(*) 5000 UNITS/ML VIAL (FIVE THOUSAND) SUBCUT SCH ×3 (05:46→21:09)
--- NOTE | 2017-11-28 09:21 | RAD ---
INDICATION: Small bowel obstruction COMPARISON: November 27, 2017 TECHNIQUE: A single view of the abdomen is submitted. FINDINGS: Bones: There are no acute bony findings. Soft tissues: The soft tissues appear normal. The psoas margins are sharp. Bowel gas pattern: Normal. There is a stoma left lower quadrant. There is stool right colon. Calcifications: There are no abnormal calcifications. Other: There is an IVC filter. There is nasogastric tube in the body of the stomach IMPRESSION: NO CURRENT EVIDENCE OF SMALL BOWEL OBSTRUCTION ON THE SINGLE VIEW
--- NOTE | 2017-11-28 09:51 | PN ---
Progress Note - Progress Note Date of Service: 11/28/17 SOAP: Subjective: feels way better than yesterday. had a BM last night and I feel stool in her bag now. NGT disconnected x 1 hr since xray and no nausea. abd pain markedly better. Objective: Vital Signs Temp Pulse Resp BP Pulse Ox 98.2 F 73 16 98/50 92 11/28/17 07:28 11/28/17 07:28 11/28/17 08:00 11/28/17 07:49 11/28/17 07:28 perr eomi op:NGT in place CTA bl s1 s2 nl softer much less tender (min ttp over RLQ), easily reducible ventral hernia, pasty stool in bag no le edema A+O x 3, nonfocal neurological exam Laboratory Results - last 24 hr 11/27/17 11/27/17 15:15 15:15 WBC 5.3 RBC 4.65 Hgb 12.6 Hct 39 MCV 84 MCH 27 MCHC 32 RDW 18 H Plt Count 95 L MPV 9.5 Neut % (Auto) 83.9 H Lymph % (Auto) 4.8 L [place] % (Auto) 9.6 H Eos % (Auto) 1.4 Baso % (Auto) 0.3 Absolute Neuts (auto) 4.4 Absolute Lymphs (auto) 0.3 L Absolute Monos (auto) 0.5 Absolute Eos (auto) 0.1 Absolute Basos (auto) 0 Absolute Nucleated RBC 0 Nucleated RBC % 0.1 Sodium 134 L Potassium 4.4 Chloride 102 Carbon Dioxide 28 Anion Gap 4 BUN 9 Creatinine 0.79 Est GFR ( Amer) 96.5 Est GFR (Non-Af Amer) 75.0 BUN/Creatinine Ratio 11.4 Glucose 134 H Calcium 9.8 Total Bilirubin 1.50 H AST 35 ALT 38 Alkaline Phosphatase 205 H Total Protein 5.9 L Albumin 2.8 L Globulin 3.1 Albumin/Globulin Ratio 0.9 L Heparin Sodium (Porcine) (Heparin Vial(*)) 5,000 units SUBCUT Q8HR VICTOR M Last Admin: 11/28/17 05:46 Dose: 5,000 units Heparin Sodium (Porcine) (Heparin Flush Port (Ivad)) 5 ml FLUSH DAILY VICTOR M PRN Reason: Protocol Last Admin: 11/28/17 07:35 Dose: Not Given Sodium Chloride (Ns 0.9% 1000 Ml*) 1,000 mls @ 75 mls/hr IV PER RATE VICTOR M Last Admin: 11/27/17 15:12 Dose: 75 mls/hr Morphine Sulfate (Morphine Inj (Syringe)*) 4 mg IV Q4H PRN PRN Reason: PAIN Last Admin: 11/27/17 22:46 Dose: 4 mg Ondansetron HCl (Zofran Inj*) 4 mg IV Q4H PRN PRN Reason: NAUSEA/VOMITING Assessment: 57 yo F w metastatic colorectal cancer presenting with a small bowel obstruction that appears to be resolving. Plan: -d/w Dr. Richmond, we will keep NGT clamped x 4 hrs and if no vomiting pull it -start slow diet tomorrow if no vomiting -cont IVFs -cont heparin dvt prophylaxis
--- NOTE | 2017-11-28 12:06 | PN ---
Progress Note - Progress Note Date of Service: 11/28/17 SOAP: Subjective: No abdominal pain today No nausea or vomiting There is a small amount of stool in the colostomy bag but no air Objective: Temp Pulse Resp BP Pulse Ox 98.2 F 73 16 98/50 92 11/28/17 07:28 11/28/17 07:28 11/28/17 08:00 11/28/17 07:49 11/28/17 07:28 Minimal NGT output. PEX: Comfortable Abd is soft and non-distended. Bowel sounds are decreased throughout. There is no tenderness. Incisional hernia remains reducible and non-tender. No air in colostomy bag. AXR 11/28--non-specific bowel pattern with no SBO-large amount of stool in right colon Assessment: SBO-hopefully resolving with non-operative management. Minimal NGT output and pain has resolved. Ventral incisional and parastomal hernia-I do not believe that these are causing the obstruction--appears more intra-abdominal adhesion related. Colon cancer Plan: Remove suction from NGT and see how she feels--if tolerates, d/c tube later today and observe. Discussed with Dr. Reed
[2017-11-28] MEDS: NS 0.9% 1000 ML* 1,000 ML IV SCH (21:08)
[2017-11-29] MEDS: Heparin VIAL(*) 5000 UNITS/ML VIAL (FIVE THOUSAND) SUBCUT SCH ×3 (06:16→20:54)
[2017-11-29 07:08] LABS: ABS Basophils 0 10^3/ul (0-0.2); ABS Eosinophils 0.2 10^3/ul (0-0.6); ABS Lymphocytes 0.6 10^3/ul (1.0-4.8); ABS Monocytes 0.8 10^3/ul (0-0.8); ABS Neutrophils 3.9 10^3/ul (1.5-7.7); ABS Nucleated RBC 0 10^3/ul; Eosinophil % 4.5 % (0-6); Hematocrit 25 % (35-47); Hemoglobin 8.3 g/dl (12.0-16.0); Lymphocyte % 10.1 % (25-47); Mean Corpuscular HGB Conc 34 g/dl (31-36); Mean Corpuscular Hemoglobin 28 pg (27-31); Mean Corpuscular Volume 83 fL (80-97); Mean Platelet Volume 9.3 um3 (7.4-10.4); Nucleated Red Blood Cells % 0; Platelet Count 107 10^3/ul (150-450); Red Blood Count 2.96 10^6/ul (4.0-5.4); Red Cell Distribution Width 17 % (10.5-15); White Blood Count 5.5 10^3/ul (3.5-10.8)
[2017-11-29 07:28] LABS: EGFR Non-African American 72.9 (>60)
[2017-11-29] MEDS ORDERED: NS 0.9% 1000 ML* 1,000 ML IV ONE (07:48)
--- NOTE | 2017-11-29 08:22 | PN ---
Progress Note - Progress Note Date of Service: 11/29/17 SOAP: Subjective: She tolerated clears yesterday-had a small amount of stool in bag last night No abdominal pain, nausea or vomiting Objective: Temp Pulse Resp BP Pulse Ox 98.2 F 66 18 86/40 94 11/29/17 07:28 11/29/17 07:28 11/29/17 07:28 11/29/17 07:28 11/29/17 07:28 PEX: Comfortable ABd is soft and slightly distended. Bowel sounds are present but hypoactive No tenderness, Incisional hernia is reducible. Laboratory Results - last 24 hr 11/29/17 11/29/17 11/29/17 06:30 06:30 06:30 WBC 5.5 RBC 2.96 L Hgb 8.3 L Hct 25 L MCV 83 MCH 28 MCHC 34 RDW 17 H Plt Count 107 L MPV 9.3 Neut % (Auto) 70.3 Lymph % (Auto) 10.1 L [place] % (Auto) 14.8 H Eos % (Auto) 4.5 Baso % (Auto) 0.3 Absolute Neuts (auto) 3.9 Absolute Lymphs (auto) 0.6 L Absolute Monos (auto) 0.8 Absolute Eos (auto) 0.2 Absolute Basos (auto) 0 Absolute Nucleated RBC 0 Nucleated RBC % 0 Sodium 136 L Potassium 3.9 Chloride 109 Carbon Dioxide 21 L Anion Gap 6 BUN 13 Creatinine 0.81 Est GFR ( Amer) 93.7 Est GFR (Non-Af Amer) 72.9 BUN/Creatinine Ratio 16.0 Glucose 91 Calcium 8.2 L Blood Type O Positive Crossmatch See Detail Assessment: SBO-appears to be improving Anemia Colon cancer Plan: Full liquids Advance diet as tolerated.
[2017-11-29 08:26] LABS: Hematocrit 27 % (35-47); Hemoglobin 8.6 g/dl (12.0-16.0)
--- NOTE | 2017-11-29 09:00 | PN ---
Progress Note - Progress Note Date of Service: 11/29/17 SOAP: Subjective: [Patient reports that she is feeling well this am. No n/v. Small output from ostomy last night. No abd pain. She was noted to be anemic and hypotensive this am, but she is asx. No blood noted in her ostomy bag.] Objective: [ Heparin Sodium (Porcine) (Heparin Vial(*)) 5,000 units SUBCUT Q8HR [facility] Last Admin: 11/29/17 06:16 Dose: 5,000 units Heparin Sodium (Porcine) (Heparin Flush Port (Ivad)) 5 ml FLUSH DAILY [facility] PRN Reason: Protocol Last Admin: 11/28/17 07:35 Dose: Not Given Sodium Chloride (Ns 0.9% 1000 Ml*) 1,000 mls @ 75 mls/hr IV PER RATE [facility] Last Admin: 11/28/17 21:08 Dose: 75 mls/hr Morphine Sulfate (Morphine Inj (Syringe)*) 4 mg IV Q4H PRN PRN Reason: PAIN Last Admin: 11/27/17 22:46 Dose: 4 mg Ondansetron HCl (Zofran Inj*) 4 mg IV Q4H PRN PRN Reason: NAUSEA/VOMITING Laboratory Results - last 24 hr 11/29/17 11/29/17 11/29/17 06:30 06:30 06:30 WBC 5.5 RBC 2.96 L Hgb 8.3 L Hct 25 L MCV 83 MCH 28 MCHC 34 RDW 17 H Plt Count 107 L MPV 9.3 Neut % (Auto) 70.3 Lymph % (Auto) 10.1 L [place] % (Auto) 14.8 H Eos % (Auto) 4.5 Baso % (Auto) 0.3 Absolute Neuts (auto) 3.9 Absolute Lymphs (auto) 0.6 L Absolute Monos (auto) 0.8 Absolute Eos (auto) 0.2 Absolute Basos (auto) 0 Absolute Nucleated RBC 0 Nucleated RBC % 0 Sodium 136 L Potassium 3.9 Chloride 109 Carbon Dioxide 21 L Anion Gap 6 BUN 13 Creatinine 0.81 Est GFR ( Amer) 93.7 Est GFR (Non-Af Amer) 72.9 BUN/Creatinine Ratio 16.0 Glucose 91 Calcium 8.2 L Blood Type O Positive Antibody Screen Negative Crossmatch See Detail 11/29/17 08:00 WBC RBC Hgb 8.6 L Hct 27 L MCV MCH MCHC RDW Plt Count MPV Neut % (Auto) Lymph % (Auto) [place] % (Auto) Eos % (Auto) Baso % (Auto) Absolute Neuts (auto) Absolute Lymphs (auto) Absolute Monos (auto) Absolute Eos (auto) Absolute Basos (auto) Absolute Nucleated RBC Nucleated RBC % Sodium Potassium Chloride Carbon Dioxide Anion Gap BUN Creatinine Est GFR ( Amer) Est GFR (Non-Af Amer) BUN/Creatinine Ratio Glucose Calcium Blood Type Antibody Screen Crossmatch Vital Signs: Temp Pulse Resp BP Pulse Ox 98.2 F 66 18 86/40 94 11/29/17 07:28 11/29/17 07:28 11/29/17 07:28 11/29/17 07:28 11/29/17 07:28 Exam: Gen: Well appearing, in NAD HEENT: MMM CV: RRR, no m/r/g Resp: lungs CTA Abd: soft, hypoactive bowel sounds present, ostomy L side of abdomen Ext: No edema Skin: No rash] Assessment: [57 yo female with metastatic CRC and portal hypotension admitted with SBO.] Plan: [1. SBO - resolving. Tolerating clear liquids well, advance to full liquids this am. Consider soft, low residue diet for dinner if full liquids tolerated for breakfast/lunch. 2. Anemia/hypotension - no signs of bleeding. Patient has had multiple prior episodes of bleeding around her stoma site. No blood present in her ostomy bag. She is asymptomatic. Hgb ~12 g/dl at admission, but looking at historic numbers her Hgb has been 8-9 g/dl for several weeks prior to this admission. She is hypotensive however, so will transfuse 1U PRBCs and continue to hold diuretics. Repeat H&H in am and monitor for signs of bleeding. 3. Metastatic CRC with liver lesion - Started Keytruda 11/20/17. Disease is relatively stable. Some progression of liver lesion on recent CT. Dispo: Anticipate possible discharge home tomorrow.]
[2017-11-29] MEDS: NS 0.9% 1000 ML* 1,000 ML IV SCH (17:57)
--- NOTE | 2017-11-29 21:29 | PN ---
Progress Note - Progress Note Date of Service: 11/29/17 Note: CTSP for bleeding via stoma Per nurse, very heavy just a little while ago. Per patient, this has been a chronic intermittent problem. Has had it sutured before. On exam, blood in bag, and staining appliance. No active bleeding identified. No erosion, ulcer or other obvious source. Based upon appearance, I would question whether the bleeding was really internal.
[2017-11-30] MEDS: NS 0.9% 1000 ML* 1,000 ML IV SCH (00:21)
[2017-11-30] MEDS: Heparin VIAL(*) 5000 UNITS/ML VIAL (FIVE THOUSAND) SUBCUT SCH (04:28)
[2017-11-30 05:05] LABS: Hematocrit 31 % (35-47); Hemoglobin 10.4 g/dl (12.0-16.0); Mean Corpuscular HGB Conc 33 g/dl (31-36); Mean Corpuscular Hemoglobin 28 pg (27-31); Mean Corpuscular Volume 84 fL (80-97); Mean Platelet Volume 9.1 um3 (7.4-10.4); Platelet Count 122 10^3/ul (150-450); Red Blood Count 3.73 10^6/ul (4.0-5.4); Red Cell Distribution Width 17 % (10.5-15); White Blood Count 7.5 10^3/ul (3.5-10.8)
[2017-11-30 05:14] LABS: EGFR Non-African American 78.4 (>60)
[2017-11-30] MEDS ORDERED: Furosemide IV* 10 MG/ML 2 ML VIAL (20 MG) IV ONE (09:00)
--- NOTE | 2017-11-30 09:20 | PN ---
Progress Note - Progress Note Date of Service: 11/30/17 SOAP: Subjective: [Patient had an episode of bleeding in to her ostomy bag last night. She was evaluated by Dr Ji, the bleeding had stopped spontaneously at that time and there was no obvious signs of a source per Dr Ji's note. She was transfused one additional unit of PRBCs. sBP has been stable in low 100s. Following bleeding, she has had multiple episodes of diarrhea, but no further blood mixed with stool. She denies abd pain or cramping, no nausea or vomiting. She has noted her abd is a bit more distended today as well.] Objective: [ Furosemide (Lasix Iv*) 20 mg IV ONCE ONE Stop: 11/30/17 09:01 Heparin Sodium (Porcine) (Heparin Vial(*)) 5,000 units SUBCUT Q8HR [facility] Last Admin: 11/30/17 04:28 Dose: Not Given Heparin Sodium (Porcine) (Heparin Flush Port (Ivad)) 5 ml FLUSH DAILY [facility] PRN Reason: Protocol Last Admin: 11/29/17 10:13 Dose: Not Given Morphine Sulfate (Morphine Inj (Syringe)*) 4 mg IV Q4H PRN PRN Reason: PAIN Last Admin: 11/27/17 22:46 Dose: 4 mg Ondansetron HCl (Zofran Inj*) 4 mg IV Q4H PRN PRN Reason: NAUSEA/VOMITING Spironolactone (Aldactone Tab*) 50 mg PO BID [facility] Laboratory Results - last 24 hr 11/29/17 11/30/17 11/30/17 06:30 04:45 04:45 WBC 7.5 RBC 3.73 L Hgb 10.4 L Hct 31 L MCV 84 MCH 28 MCHC 33 RDW 17 H Plt Count 122 L MPV 9.1 Sodium 134 L Potassium 4.2 Chloride 109 Carbon Dioxide 20 L Anion Gap 5 BUN 9 Creatinine 0.76 Est GFR ( Amer) 100.9 Est GFR (Non-Af Amer) 78.4 BUN/Creatinine Ratio 11.8 Glucose 172 H Calcium 8.3 L Magnesium 1.9 Total Bilirubin 2.70 H AST 33 ALT 30 Alkaline Phosphatase 219 H Total Protein 5.1 L Albumin 2.6 L Globulin 2.5 Albumin/Globulin Ratio 1.0 Blood Type O Positive Antibody Screen Negative Crossmatch See Detail Vital Signs: Temp Pulse Resp BP Pulse Ox 98.7 F 92 16 102/58 96 11/30/17 03:10 11/30/17 02:59 11/30/17 02:59 11/30/17 02:59 11/30/17 02:59 Exam: Gen: Well appearing, sitting up in her hospital bed eating a breakfast of eggs and toast. HEENT: MMM CV: RRR, no m/r/g Resp: lungs CTA, no w/c/r Abd: soft, distended, bowel sounds present. Non TTP Ext: trace LE edema Assessment: 57 yo female with metastatic CRC and portal hypotension admitted with SBO. Now complicated by recurrent peristomal bleeding] Plan: [1. SBO - resolved. Tolerating a soft, low residue diet without recurrent abd pain or n/v. Diarrhea last night, likely due to resolving obstruction. 2. Peristomal bleeding - patient has had multiple episodes of peristomal bleeding over the last few months. The episodes of bleeding generally follow times where her ascites reaccumulates. Likely due to increased pressure in the portal system. She has known mesenteric vein dilatation that has been presumed to be the source of bleeding previously. She is stable after 2U PRBCs without signs of additional bleeding. 3. Portal HTN - Plan to stop IVF now and resume diuretics. Give albumin today as well for additional pressure support. 4. Metastatic CRC with liver lesion - Started Keytruda 11/20/17. Disease is relatively stable. Some progression of liver lesion on recent CT.
[2017-11-30] MEDS: Spironolactone TAB* 25 MG PO SCH ×2 (09:40→21:26)
[2017-11-30] MEDS: Albumin Human 25%* 12.5 GM/50 ML BTL IV SCH ×2 (11:10→21:25)
--- NOTE | 2017-11-30 12:07 | PN ---
Progress Note - Progress Note Date of Service: 11/30/17 SOAP: Subjective: She is tolerating full liquids without pain, nausea or vomiting She had multiple loose BM's last night but also one episode of bleeding into bag Dr. Ji examined and there was no evidence of manjeet-stomal bleeding. No further bleeding She feels a little distended today She has been ambulating in the halls Objective: Temp Pulse Resp BP Pulse Ox 98.1 F 95 18 124/68 95 11/30/17 07:29 11/30/17 07:29 11/30/17 07:29 11/30/17 07:29 11/30/17 07:29 Intake & Output 11/28/17 11/29/17 11/30/17 12/01/17 06:59 06:59 06:59 06:59 Intake Total 1070 1839 4795 Output Total 0 975 Balance 1070 1839 3820 Weight 150 lb 8 oz 161 lb 4.8 oz Intake: IV Fluids 1070 1189 2325 NS (0.9%) 1070 1189 2044 blood 281 IVPB 280 blood 280 Oral 0 650 2190 Output: Urine 0 200 Liquid Stool 125 Colostomy 300 Ileostomy 350 Other: Estimated Void Large Medium Date of Last Bowel 11/29/17 Movement # Bowel Movements 0 0 1 # Voids 1 2 2 PEX: Comfortable ABd is soft and slightly distended. Bowel sounds are present and are slightly higher pitched. THere is no tenderness. The midline incisional hernia remains reducible. Bag in place without output presenty. Laboratory Results - last 24 hr 11/29/17 11/30/17 11/30/17 06:30 04:45 04:45 WBC 7.5 RBC 3.73 L Hgb 10.4 L Hct 31 L MCV 84 MCH 28 MCHC 33 RDW 17 H Plt Count 122 L MPV 9.1 Sodium 134 L Potassium 4.2 Chloride 109 Carbon Dioxide 20 L Anion Gap 5 BUN 9 Creatinine 0.76 Est GFR ( Amer) 100.9 Est GFR (Non-Af Amer) 78.4 BUN/Creatinine Ratio 11.8 Glucose 172 H Calcium 8.3 L Magnesium 1.9 Total Bilirubin 2.70 H AST 33 ALT 30 Alkaline Phosphatase 219 H Total Protein 5.1 L Albumin 2.6 L Globulin 2.5 Albumin/Globulin Ratio 1.0 Blood Type O Positive Antibody Screen Negative Crossmatch See Detail Assessment: Colon cancer SBO-appears to be resolving clinically---diet advanced and she it tolerating it well. Portal HTN-- Manjeet-stomal bleeding?? She received 2 units of PRBC's yesterday, initial transfusion was started before bleeding and was given for low BP. Plan: Advance diet Bleeding has been persistent over the past several months and felt secondary to mesenteric/portal hypertension. If does not respond to treatment plan was to consider TIPS procedure.
[2017-11-30] MEDS: Furosemide IV* 10 MG/ML 10 ML VIAL (100 MG) IV SCH (17:53)
[2017-12-01 06:30] LABS: ABS Basophils 0 10^3/ul (0-0.2); ABS Eosinophils 0.3 10^3/ul (0-0.6); ABS Lymphocytes 0.4 10^3/ul (1.0-4.8); ABS Monocytes 0.8 10^3/ul (0-0.8); ABS Neutrophils 5.4 10^3/ul (1.5-7.7); ABS Nucleated RBC 0 10^3/ul; Eosinophil % 4.9 % (0-6); Hematocrit 30 % (35-47); Hemoglobin 10.2 g/dl (12.0-16.0); Mean Corpuscular HGB Conc 34 g/dl (31-36); Mean Corpuscular Hemoglobin 29 pg (27-31); Mean Corpuscular Volume 84 fL (80-97); Mean Platelet Volume 8.8 um3 (7.4-10.4); Nucleated Red Blood Cells % 0; Platelet Count 124 10^3/ul (150-450); Red Blood Count 3.56 10^6/ul (4.0-5.4); Red Cell Distribution Width 17 % (10.5-15); White Blood Count 7.1 10^3/ul (3.5-10.8)
[2017-12-01 06:51] LABS: EGFR Non-African American 84.8 (>60)
--- NOTE | 2017-12-01 08:56 | PN ---
Progress Note - Progress Note Date of Service: 12/01/17 SOAP: Subjective: Continues to feel better-tolerating po and ostomy is putting out loose stool, no further bleeding. No abdominal pain. Feels a little distended. Objective: Temp Pulse Resp BP Pulse Ox 98.2 F 96 18 117/65 97 12/01/17 07:38 12/01/17 07:38 12/01/17 07:38 12/01/17 07:38 12/01/17 07:38 PEX: Comfortable Lungs are clear Abd is soft and slightly distended. Bowels sounds are present and are normal active. No tenderness or guarding. Hernia remains reducible. Laboratory Results - last 24 hr 12/01/17 12/01/17 06:15 06:15 WBC 7.1 RBC 3.56 L Hgb 10.2 L Hct 30 L MCV 84 MCH 29 MCHC 34 RDW 17 H Plt Count 124 L MPV 8.8 Neut % (Auto) 77.0 Lymph % (Auto) 6.0 L [place] % (Auto) 11.7 H Eos % (Auto) 4.9 Baso % (Auto) 0.4 Absolute Neuts (auto) 5.4 Absolute Lymphs (auto) 0.4 L Absolute Monos (auto) 0.8 Absolute Eos (auto) 0.3 Absolute Basos (auto) 0 Absolute Nucleated RBC 0 Nucleated RBC % 0 Sodium 135 L Potassium 3.8 Chloride 109 Carbon Dioxide 20 L Anion Gap 6 BUN 6 Creatinine 0.71 Est GFR ( Amer) 109.1 Est GFR (Non-Af Amer) 84.8 BUN/Creatinine Ratio 8.5 Glucose 162 H Calcium 8.4 L Total Bilirubin 1.40 H AST 29 ALT 27 Alkaline Phosphatase 207 H Total Protein 5.5 L Albumin 2.8 L Globulin 2.7 Albumin/Globulin Ratio 1.0 Assessment: Colon cancer SBO-resolved. Continue present diet Portal hypertension Plan: Continue with regular diet OK for d/c from surgical standpoint.
[2017-12-01] MEDS: Furosemide IV* 10 MG/ML 10 ML VIAL (100 MG) IV SCH (10:09)
[2017-12-01] MEDS: Spironolactone TAB* 25 MG PO SCH (10:13)
--- NOTE | 2017-12-01 10:35 | PN ---
Progress Note - Progress Note Date of Service: 12/01/17 SOAP: Subjective: []Did fine overnight. Feels ok this am. Eating and has ostomy out put. No abdominal pain and no additional bleeding. Tolerated diuretics and weight is down. Furosemide (Lasix Iv*) 20 mg IV 0800,1700 [facility] Last Admin: 12/01/17 10:09 Dose: 20 mg Heparin Sodium (Porcine) (Heparin Flush Port (Ivad)) 5 ml FLUSH DAILY [facility] PRN Reason: Protocol Last Admin: 12/01/17 06:39 Dose: 5 ml Morphine Sulfate (Morphine Inj (Syringe)*) 4 mg IV Q4H PRN PRN Reason: PAIN Last Admin: 11/27/17 22:46 Dose: 4 mg Ondansetron HCl (Zofran Inj*) 4 mg IV Q4H PRN PRN Reason: NAUSEA/VOMITING Spironolactone (Aldactone Tab*) 50 mg PO BID [facility] Last Admin: 12/01/17 10:13 Dose: 50 mg Objective: [] Vital Signs Temp Pulse Resp BP Pulse Ox 98.2 F 96 16 117/65 97 12/01/17 07:38 12/01/17 07:38 12/01/17 10:21 12/01/17 07:38 12/01/17 07:38 Exam: Gen: Well appearing, sitting up in her hospital bed HEENT: MMM CV: RRR, no m/r/g Resp: lungs CTA, no w/c/r Abd: there is increased bowl wall edema from clinc. Hernia reducible. + BS and NT Ext: trace LE edema Assessment: 57 yo female with metastatic CRC and portal hypotension admitted with SBO. Improved and course complicated yesterday by flid overload and reccurent bleeding from stoma. Better today after diuretics, no additional bleeding. Plan: [1. SBO - resolved. Tolerating a soft, low residue diet without recurrent abd pain or n/v. Diarrhea last night, likely due to resolving obstruction. 2. Peristomal bleeding - Better overnight and Hgb stable without transfusion. 3. Portal HTN - d/c home on Lasix 40 mg daily and Aldactone 50 mg po bid. 4. Metastatic CRC with liver lesion - Started Keytruda 11/20/17. Follow up next week before cycle 2 5. Call our office over weekend with any changes.
[2017-12-01] MEDS: Albumin Human 25%* 12.5 GM/50 ML BTL IV SCH (11:20)
[2017-12-01 14:25] VITALS: BP 124/74
--- NOTE | 2017-12-01 19:48 | DS ---
DISCHARGE SUMMARY: DATE OF ADMISSION: 11/27/17 DATE OF DISCHARGE: 12/01/17 DISCHARGE DIAGNOSES: 1. Small bowel obstruction secondary to adhesions. 2. Peristomal bleeding. 3. Metastatic colorectal cancer. 4. Portal hypertension. HOSPITAL COURSE: She came in on 11/27/17 with acute abdominal pain, was found to have firm bulge in her right upper . She had a CT scan that showed small bowel obstruction secondary to adhesions and distention of her bowel in the hernia sac. She had a consultation with Dr. Richmond and had bee n followed conservatively. She was placed on IV fluids and she was anemic with 1 unit packed red blo od cells. The small bowel obstruction resolved spontaneously and her diet was advanced on 11/29/17. We were considering discharge yesterday but she then developed recurrent bleeding around her stoma. It was noted that she had increased weight, increased bowel wall edema. Bleeding was thought to be secondary to portal hypertension. She was given 2 doses of albumin and restarted on her Lasix and s pironolactone yesterday. Tolerated without decrease in blood pressure. Today, she is down 5 pounds and has no additional bleeding. Feeling relatively well. She tolerated advancing her diet without abdominal pain and she has output in her stoma, both stool a nd gas. Plan will be discharge home today with followup next week. DISCHARGE MEDICATIONS: Should take, 1. Tylenol p.r.n. for pain. 2. Ferrous sulfate 325 daily. 3. Lasix 40 mg a day. 4. Spironolactone 50 mg b.i.d. 5. Zofran 4 mg p.r.n. 6. Potassium 20 mEq a day. 7. Tramadol 50 mg q.6 p.r.n. for pain. PENDING LABS: None. She had a bilirubin elevated at 2.7 yesterday, down to 1.4 today, which is closer to her baseline. S odium is stable at 138 and her magnesium is 1.9 yesterday. She will call me over the weekend with any additional concerns and will follow up next week in clinic . [id number]/[facility] #: [id number]
== END 2017-12-01 16:10 | disposition home or self-care (01) | DRG 389 ==
LOC: MED 14:09
PROVIDERS: ADMIT Internal Medicine Hematology & Oncology; ATTEND Internal Medicine Hematology & Oncology
PROC: 0D9670Z Drainage of Stomach with Drainage Device, Via Natural or Artificial Opening (ICD-10-PCS; principal; 2017-11-27)
PROC: 30233N1 Transfusion of Nonautologous Red Blood Cells into Peripheral Vein, Percutaneous Approach (ICD-10-PCS; 2017-11-29)
DX: K56.50 Intestinal adhesions [bands], unspecified as to partial versus complete obstruction (principal); K43.0 Incisional hernia with obstruction, without gangrene; K76.6 Portal hypertension; C19 Malignant neoplasm of rectosigmoid junction; K43.3 Parastomal hernia with obstruction, without gangrene; C78.7 Secondary malignant neoplasm of liver and intrahepatic bile duct; K94.01 Colostomy hemorrhage; K63.89 Other specified diseases of intestine; Z91.041 Radiographic dye allergy status; Z92.21 Personal history of antineoplastic chemotherapy; Z86.718 Personal history of other venous thrombosis and embolism; Z90.49 Acquired absence of other specified parts of digestive tract; Z80.0 Family history of malignant neoplasm of digestive organs; Z95.828 Presence of other vascular implants and grafts; D64.9 Anemia, unspecified; I95.9 Hypotension, unspecified; R19.7 Diarrhea, unspecified; E87.70 Fluid overload, unspecified; Y83.2 Surgical operation with anastomosis, bypass or graft as the cause of abnormal reaction of the patient, or of later complication, without mention of misadventure at the time of the procedure; Y92.239 Unspecified place in hospital as the place of occurrence of the external cause
CPT/HCPCS: 36415; 74018; 80048; 80053; 83735; 85014; 85018; 85025; 85027; 86850; 86900; 86901; 86922; 99222; 99233; 99239; A9270-GY; J1642; J1644; J1940; J2270; P9040; P9047

== ENCOUNTER 2018-11-20 06:47 | Day surgery (SDC) | payer OTHER ==
--- NOTE | 2018-11-19 13:56 | HP ---
CC: Dr. Deana Hodges; Dr. Rambo Newell; Sean Briones MD* ADMITTING HISTORY AND PHYSICAL: DATE OF ADMISSION: 11/20/18 ADMITTING DIAGNOSES: 1. Advanced colorectal carcinoma. 2. Right hydronephrosis. PLANNED PROCEDURE: Right retrograde, right ureteral stent insertion, possible balloon dilatation. SURGEON: Dr. Briones. HISTORY OF PRESENT ILLNESS: Ms. Kika Cano is a 58-year-old lady who was originally diagnosed with advanced colon cancer in 2014, at which time she presented with ruptured colon secondary to the malignancy. She underwent surgical resection at that time and since then has had multiple procedures including partial liver resection, biliary stent placement, embolizations, and also has had radiation and chemotherapy. She had a CT scan done now, which revealed new onset of right hydronephrosis and proximal right hydroureter with what appears to be an enlarged lymph node adjacent to the right ureter, which I suspect is the etiology for the hydronephrosis. PAST MEDICAL HISTORY: Significant for: 1. Advanced colorectal carcinoma. 2. Type 2 diabetes mellitus. 3. Liver metastasis. MEDICATIONS ON ADMISSION: 1. Ferrous sulfate 325 mg 2 tablets daily. 2. Lasix 40 mg daily. 3. Glyburide 2.5 mg twice a day. 4. Lonsurf tablet orally once a day. 5. Metformin 500 mg daily. 6. Nadolol 40 mg daily. 7. Nystatin 5 mL suspension t.i.d. p.r.n. 8. Spironolactone 50 mg twice a day. 9. Tramadol 50 mg q. 6 hours p.r.n. 10. Zofran 4 mg q. 6 hours p.r.n. ALLERGIES AND INTOLERANCES: INTRAVENOUS CONTRAST (had CT with IV contrast with the medication with prednisone). REVIEW OF SYSTEMS: She denies any chest pain or shortness of breath. PHYSICAL EXAMINATION GENERAL: Pleasant middle aged lady. VITAL SIGNS: Blood pressure 100/60, pulse 68 per minute and regular, temperature 96, oxygen saturation 95% on room air. LUNGS: Clear bilaterally. CARDIOVASCULAR: Regular rate and rhythm. S1, S2. ABDOMEN: Soft with ascites and left lower quadrant ileostomy. EXTREMITIES: She has mild right flank tenderness. PLAN: I reviewed the CT scan and had the detailed discussion with Ms. Cano regarding the findings of right hydronephrosis and proximal hydroureter. I explained the procedure of right stent insertion and possible balloon dilatation and the plan is to schedule her as soon as possible for right retrograde, right stent insertion, possible right ureteral balloon dilatation. [id number]/[facility] #: [id number] TANA
[~2018-11-20 06:47] MED LIST: Buffered Lidocaine 1% SYRIN* 1 ML/SYRINGE INTRADERM ONE; Dexamethasone TAB* 4 MG PO ONE; DiMENhydriNATE IV* 50 MG/ML VIAL IV PUSH PRN; Famotidine IV* 10 MG/ML 2 ML (20 mg) IV ONE; Lactated Ringers 1000 ML Bag* 1,000 ML IV SCH; Morphine 4 MG/ML VIAL (1 ml) 4 MG/ML VIAL IV PRN; Naloxone* 0.4 MG/ML 1 ML VIAL IV PRN; Ondansetron TAB* 4 MG PO ONE; PROCHLORPERAZINE INJ 5 MG/ML 2 ML VIAL IV PRN; Scopolamine 1.5 mg* PATCH TRANSDERM PRN; fentaNYL* 50 MCG/ML 2 ML VIAL (100 MCG VIAL) IV PRN; oxyCODONE/Acetamin 5/325 MG* TAB PO PRN
[2018-11-20] MEDS ORDERED: Dexamethasone TAB* 4 MG ONE (07:37)
[2018-11-20] MEDS ORDERED: Famotidine IV* 10 MG/ML 2 ML (20 mg) ONE (07:37)
[2018-11-20] MEDS ORDERED: Ondansetron ODT TAB* 4 MG ONE (07:37)
[2018-11-20] MEDS ORDERED: cefTRIAXone(*) 2 GM ADDV.VIAL IVPB ONE (07:37)
[2018-11-20] MEDS ORDERED: Midazolam* 1 MG/ML 5 ML VIAL (5 MG) ONE (07:57)
[2018-11-20] MEDS ORDERED: fentaNYL* 50 MCG/ML 2 ML VIAL (100 MCG VIAL) ONE (07:57)
[2018-11-20] MEDS ORDERED: KETAMINE HCL* 50 MG/ML 10 ML VIAL ONE (08:52)
[2018-11-20] MEDS ORDERED: Iohexol 180 (CONTRAST) 10 ML SDV IV ONE (09:07)
[2018-11-20] MEDS ORDERED: Propofol* 10 MG/ML 20 ML BTL ONE (09:11)
[2018-11-20] MEDS ORDERED: Lidocaine 2% PF * 5 ML VIAL ONE (09:12)
[2018-11-20] MEDS ORDERED: Gentamicin ADULT (*) 160 MG in NS 0.9% 100 ML* 100 ML IVPB ONE (11:00)
--- NOTE | 2018-11-20 11:55 | OP ---
CC: Dr. Rambo Newell; Dr. Deana Hodges; Dr. Briones.* OPERATIVE REPORT: DATE OF OPERATION: 11/20/18 - [facility] DATE OF : 60. SURGEON: Sean Briones MD. ANESTHESIOLOGIST: Dr. Obando. ANESTHESIA: General. PRE-OP DIAGNOSIS: Right hydronephrosis. POST-OP DIAGNOSIS: Right hydronephrosis. OPERATIVE PROCEDURE: Cystoscopy, right retrograde pyelogram, right ureteral balloon dilation and right stent insertion. COMPLICATIONS: None. STENT USED: An 8.5 Faroese 28 cm silicone stent, right ureter. OPERATIVE FINDINGS: Right hydronephrosis with proximal hydroureter with narrowing right mid ureter extending distally (likely secondary to extrinsic compression). POSTOPERATIVE CONDITION: Stable. INDICATION: Kika Cano is a 58-year-old lady with advanced colorectal cancer and new onset right hydronephrosis likely secondary to extrinsic obstruction secondary to retroperitoneal adenopathy. DESCRIPTION OF PROCEDURE: After induction of general anesthesia, patient was placed in dorsal lithotomy position. Sequential compression devices were in place and functioning. Initial cystoscopy revealed retracted, stenotic, urethral meatus. The bladder was examined. The bladder was mildly trabeculated , but otherwise unremarkable. A guidewire was introduced into the right ureter. Retrograde pyelogram revealed right hydronephrosis with dilatation of the proximal right ureter which tapers at the level of the mid to distal ureter with what appears to be effect of extrinsic compression on the mid to distal right ureter. Using a balloon dilator, successful balloon dilatation of the entire mid and distal right ureter was carried out under fluoroscopic monitoring. Once this was accomplished, an 8.5 Faroese 28 cm silicone stent was introduced and advanced under fluoroscopic monitoring with good proximal and distal positioning obtained. A Nguyen catheter was placed with temporary bladder drainage. The patient tolerated the procedure satisfactorily and was transferred back to the recovery area in stable condition. [id number]/[facility] #: [id number] MTDD
[2018-11-20 13:52] VITALS: BP 131/80
[2018-11-23] MEDS ORDERED: Scopolamine PATCH Remove* 1 NOTE MISC PATCH OFF ONE (05:59)
== END 2018-11-20 13:54 | disposition home or self-care (01) ==
LOC: OR 06:47
PROVIDERS: ATTEND Urology
DX: N13.1 Hydronephrosis with ureteral stricture, not elsewhere classified (principal); C19 Malignant neoplasm of rectosigmoid junction; R18.8 Other ascites; C78.7 Secondary malignant neoplasm of liver and intrahepatic bile duct; E11.9 Type 2 diabetes mellitus without complications; Z79.84 Long term (current) use of oral hypoglycemic drugs
CPT/HCPCS: 74420; A9270-GY; C1876; J0696; J1580; J2250; J2704; J3010; J8540

== ENCOUNTER 2018-12-14 16:05 | Observation (INO) | payer OTHER ==
[2018-12-14] MEDS ORDERED: NS 0.9% 1000 ML** 1,000 ML IV ONE (16:13)
--- NOTE | 2018-12-14 16:35 | ED ---
Altered Mental Status - HPI Summary HPI Summary: This patient is a 58 year old female presenting to [facility] with a chief complaint of hypoglycemia. The patient states that her glucose would be low on the chemotherapy medication she would take but she changed medications. This time she was found unresponsive but is currently responsive in the room. The patient was diagnosed with diabetes as a result of her chemotherapy medication and her family notes she has been eating very little lately. Family states patient's speech pattern is not normal. - History Of Current Complaint Chief Complaint: EDAltMentalStatus Stated Complaint: UNRESPONSIVE PER EMS Time Seen by Provider: 12/14/18 16:20 Hx Obtained From: Patient, Family/Crowning Inspector Onset/Duration: Resolved Timing: Lasting Minutes Severity Initially: Severe Severity Currently: Mild Character: Responsiveness Alleviating Factor(s): Glucose - Allergies/Home Medications Allergies/Adverse Reactions: Allergies Allergy/AdvReac Type Severity Reaction Status Date / Time Iodinated Contrast- Oral and Allergy Hives Verified 12/14/18 16:11 IV Dye HAY FEVER Allergy Eyes Uncoded 12/14/18 16:11 Itchy/Swollen/Red/Watery Home Medications: Home Medications Prochlorperazine TAB* [Compazine Tab*] 10 mg PO Q6H PRN 12/14/18 [History Confirmed 12/14/18] traZODone TAB* [Desyrel TAB*] 50 mg PO BEDTIME PRN 12/14/18 [History Confirmed 12/14/18] PMH/Surg Hx/FS Hx/Imm Hx Endocrine/Hematology History: Reports: Hx Diabetes - STATES CAUSED BY THE CHEMO , Hx Anemia - ON MEDICATION Denies: Hx Systemic Lupus Erythematosus Cardiovascular History: Reports: Hx Deep Vein Thrombosis, Hx Hypertension - PORTAL VEIN HYPERTENSION, Other Cardiovascular Problems/Disorders - DVT LEFT LEG PRESENTLY AND ONE IN 1990; [facility] Denies: Hx Congestive Heart Failure, Hx Pacemaker/ICD GI History: Reports: Hx Jaundice, Hx Ileostomy, Other GI Disorders - COLON CANCER /LIVER, HAs colonostomy , has bolood clot filter History: Reports: Hx Renal Disease - RT STENT 11/20/18. Denies: Hx Dialysis Musculoskeletal History: Denies: Hx Rheumatoid Arthritis Sensory History: Reports: Hx Cataracts - L eye corrected, R not yet corrected, Hx Contacts or Glasses - glasses Denies: Hx Hearing Aid Opthamlomology History: Reports: Hx Cataracts - L eye corrected, R not yet corrected, Hx Contacts or Glasses - glasses Psychiatric History: Denies: Hx Panic Disorder - Cancer History Cancer Type, Location and Year: colon cancer with mets to liver Hx Chemotherapy: Yes - receives 2 weeks on 2 off, none this week Hx Radiation Therapy: No - Surgical History Surgery Procedure, Year, and Place: 06/2015 colectomy and appy [facility] [place]. 06/2015 POWER PORT; portal vein [facility] [place]. 01/[address] WORTHINGTON. [facility] - IMMEDIATELY AFTER IMPLANTATION 1.5T MRI CONDITIONAL 6-OK TO 2500G /CM (PT WILL BRING CARD WITH HER WELL) ;. 01/2016 embolization and paratial removal of liver . WIRE COILS FOR BLEED IN ABDOMEN 08-13 [facility]. 2017 embolism bleed [facility] Anesthesia Reactions: No Infectious Disease History: No Infectious Disease History: Denies: Traveled Outside the [place] in Last 30 Days - Family History Known Family History: Positive: Blood Disorder - factor 5 Negative: Cardiac Disease, Hypertension - Social History Alcohol Use: None Alcohol Amount: SINCE 08/2015 Hx Substance Use: No Substance Use Type: Reports: None Hx Tobacco Use: No Smoking Status (MU): Never Smoked Tobacco Have You Smoked in the Last Year: No Review of Systems Negative: Fever Neurological: Other - Unresponsive, resolved Positive: Slurred Speech All Other Systems Reviewed And Are Negative: Yes Physical Exam - Summary Physical Exam Summary: Appearance: The patient is well-nourished in no acute distress and in no acute pain. Skin: The skin is warm and dry and skin color reflects adequate perfusion. Jaundiced HEENT: The head is normocephalic and atraumatic. The pupils are equal and reactive. The conjunctivae are icteric and without drainage. Nares are patent and without drainage. Mouth reveals very dry mucous membranes and the throat is without erythema and exudate. The external ears are intact. The ear canals are patent and without drainage. The tympanic membranes are intact. Neck: The neck is supple with full range of motion and non-tender. There are no carotid bruits. There is no neck vein distension. Respiratory: Chest is non-tender. Lungs are clear to auscultation and breath sounds are symmetrical and equal. Cardiovascular: Heart is regular rate and rhythm. There is no murmur or rub auscultated. There is no peripheral edema and pulses are symmetrical and equal. Abdomen: The abdomen is soft and non-tender. There are normal bowel sounds heard in all four quadrants and there is no organomegaly palpated. Musculoskeletal: There is no back tenderness noted. Extremities are non-tender with full range of motion. There is good capillary refill. There is no peripheral edema or calf tenderness elicited. Neurological: Patient is alert and oriented to person, place and time. The patient has symmetrical motor strength in all four extremities. Cranial nerves are grossly intact. Deep tendon reflexes are symmetrical and equal in all four extremities. Psychiatric: The patient has an appropriate affect and does not exhibit any anxiety or depression. Triage Information Reviewed: Yes Vital Signs On Initial Exam: Initial Vitals Temp Pulse Resp BP Pulse Ox 96.4 F 67 14 94/61 95 12/14/18 16:08 12/14/18 16:08 12/14/18 16:08 12/14/18 16:08 12/14/18 16:08 Vital Signs Reviewed: Yes Diagnostics - Vital Signs Vital Signs Temp Pulse Resp BP Pulse Ox 12/14/18 16:13 66 17 92/60 96 12/14/18 16:12 66 23 97 12/14/18 16:08 96.4 F 67 14 94/61 95 - Laboratory Result Diagrams: 12/14/18 16:15 12/14/18 16:15 Lab Statement: Any lab studies that have been ordered have been reviewed, and results considered in the medical decision making process. - Radiology CXR Radiology Interpretation Completed By: ED Physician Summary of Radiographic Findings: No acute process. Pending official radiologist report. - CT Brain CT Interpretation Completed By: Radiologist Summary of CT Findings: There is no evidence of intracranial mass or hemorrhage. ED Provider has reviewed this report. - EKG 1614 Cardiac Rate: NL - 66 BPM EKG Rhythm: Sinus Rhythm ST Segment: Normal Ectopy: None Summary of EKG Findings: Normal sinus rhythm, normal ST, no ectopy, no STEMI Altered Mental Statu Course/Dx - Course Course Of Treatment: Ms. Cano was found unresponsive by her niece. The ambulance was called and she was found to be bradycardic and hyperglycemic. She was given atropine and D50 and woke up. She was found to have a GFR of 17 and to be on glyburide and the hospitalist service was contacted with the expectation that she would continue to have hyperglycemic episodes. She began to get somewhat lethargic after she had been here a couple hours and her blood sugar at that point was 46 and she was given another amp and started on D10 drip. - Diagnoses Provider Diagnoses: Hypoglycemia, Chronic renal disease - Provider Notifications Discussed Care Of Patient With: Bobbi Derek - Oncology Time Discussed With Above Provider: 18:39 Instructed by Provider To: Admit As Inpatient Discharge - Sign-Out/Discharge Documenting (check all that apply): Patient Departure - Admission Patient Received Moderate/Deep Sedation with Procedure: No - Discharge Plan Condition: Stable Disposition: ADMITTED TO [facility] Referrals: Deana Hodges MD [Primary Care Provider] - - Billing Disposition and Condition Condition: STABLE Disposition: Admitted to [facility] - Attestation Statements Document Initiated by Samina: Yes Documenting Scribe: Jonathan Mcguire Provider For Whom Samina is Documenting (Include Credential): Noble Buck MD Scribe Attestation: Jonathan Islas scribed for Noble Buck MD on 12/14/18 at 1851. Scribe Documentation Reviewed: Yes Provider Attestation: The documentation as recorded by the Jonathan benitez accurately reflects the service I personally performed and the decisions made by , Noble Buck MD Status of Scribe Document: Viewed
[2018-12-14 16:37] LABS: INR 1.33 (0.77-1.02)
[2018-12-14 16:43] LABS: ALT 100 U/L (7-52); AST 106 U/L (13-39); Albumin 2.9 g/dL (3.2-5.2); Albumin/Globulin Ratio 0.8 (1-3); Alkaline Phosphatase 441 U/L (34-104); Anion Gap 13 mmol/L (2-11); BUN/Creatinine Ratio 26.4 (8-20); Blood Urea Nitrogen 74 mg/dL (6-24); CO2 Carbon Dioxide 26 mmol/L (22-32); Calcium 9.3 mg/dL (8.6-10.3); Chloride 87 mmol/L (101-111); Creatine Kinase 35 U/L (10-223); EGFR Non-African American 17.4 (>60); Globulin 3.8 g/dL (2-4); Glucose 125 mg/dL (70-100); Magnesium 2.7 mg/dL (1.9-2.7); Potassium 3.8 mmol/L (3.5-5.0); Sodium 126 mmol/L (135-145); Total Protein 6.7 g/dL (6.4-8.9)
[2018-12-14 16:45] LABS: Troponin I 0.03 ng/mL (<0.04)
[2018-12-14 16:58] LABS: ABS Basophils 0 10^3/ul (0-0.2); ABS Eosinophils 0 10^3/ul (0-0.6); ABS Lymphocytes 0.3 10^3/ul (1.0-4.8); ABS Monocytes 1.5 10^3/ul (0-0.8); ABS Neutrophils 11.8 10^3/ul (1.5-7.7); ABS Nucleated RBC 0 10^3/ul; Eosinophil % 0.2 %; Hematocrit 27 % (33-41); Hemoglobin 9.2 g/dL (12.0-16.0); Mean Corpuscular HGB Conc 34 g/dL (31-36); Mean Corpuscular Hemoglobin 33 pg (27-31); Mean Corpuscular Volume 98 fL (80-97); Mean Platelet Volume 9.5 fL (7.4-10.4); Nucleated Red Blood Cells % 0; Platelet Count 162 10^3/uL (150-450); Red Cell Distribution Width 24 % (10.5-15); White Blood Count 13.6 10^3/uL (3.5-10.8)
[2018-12-14 17:10] LABS: Acetaminophen < 15 mcg/mL; Alcohol < 10 mg/dL (<10); Salicylate < 2.50 mg/dL (<30)
[2018-12-14 17:24] LABS: TSH (Thyroid Stimulating Horm) 3.16 mcIU/mL (0.34-5.60)
[2018-12-14 17:26] LABS: Urine Appearance Cloudy; Urine Bacteria 1+ (Absent); Urine Bilirubin Negative (Negative); Urine Blood 3+ (Negative); Urine Color Amber; Urine Glucose Negative (Negative); Urine Ketones Negative (Negative); Urine Nitrite Negative (Negative); Urine Protein 1+(30 mg/dL) (Negative); Urine Red Blood Cell 3+(>10/hpf) (Absent); Urine Specific Gravity 1.011 (1.010-1.030); Urine Squamous Epithelial Cell Present (Absent); Urine Urobilinogen Positive (Negative); Urine White Blood Cell Trace(0-5/hpf) (Absent)
[2018-12-14 17:31] LABS: Urine Benzodiazepine Screen None Detected (None Detect); Urine Opiates Screen None Detected (None Detect)
[2018-12-14] MEDS ORDERED: Dextrose 50% Syringe 50 ML* 25 GM/50 ML SYRINGE IV PUSH ONE (18:43)
[2018-12-14] MEDS ORDERED: Dextrose 50% VIAL 50 ml ONE (18:45)
[2018-12-14] MEDS ORDERED: Dextrose 50% VIAL 50 ml IV ONE (18:51)
[2018-12-14] MEDS ORDERED: WATER IV ONE (20:00)
[2018-12-14] MEDS ORDERED: DEXTROSE 50% IV ONE (20:00)
[2018-12-14] MEDS ORDERED: Prochlorperazine TAB* 10 MG PO PRN (20:12)
[2018-12-14] MEDS ORDERED: Diphenoxylat/Atrop 2.5-0.025M* 1 TAB PO PRN (20:12)
[2018-12-14] MEDS ORDERED: traZODone TAB* 50 MG TAB PO PRN (20:12)
[2018-12-14] MEDS ORDERED: TRAMADOL HCL 50 MG PO PRN (20:12)
[2018-12-14] MEDS ORDERED: Ondansetron ODT TAB* 4 MG PO PRN (20:12)
[2018-12-14] MEDS ORDERED: traMADol TAB* 50 MG PO PRN (20:34)
[2018-12-14] MEDS ORDERED: Ferrous Sulfate TAB* 325 MG PO SCH (21:00)
[2018-12-14] MEDS ORDERED: D5W 1/2 NS 1000 ML BAG* 1,000 ML IV SCH (21:00)
[2018-12-14 21:03] LABS: Albumin 2.8 g/dL (3.2-5.2); Albumin/Globulin Ratio 0.7 (1-3); BUN/Creatinine Ratio 27.8 (8-20); Calcium 8.8 mg/dL (8.6-10.3); EGFR African American 24.2 (>60); Globulin 3.8 g/dL (2-4); Potassium 3.9 mmol/L (3.5-5.0); Total Bilirubin 7.3 mg/dL (0.2-1.0); Total Protein 6.6 g/dL (6.4-8.9)
[2018-12-14] MEDS ORDERED: Piperacillin/Tazobac ADVAN(*) 3.375 GM in NS 0.9% 100 ML* 100 ML IVPB ONE (21:59)
[2018-12-14] MEDS ORDERED: Zosyn per Pharmacy* NOTE FOLLOW UP SCH (22:00)
[2018-12-14] MEDS ORDERED: Vancomycin(*) 750 MG in NS 0.9% 250 ML* 250 ML IVPB SCH (22:24)
[2018-12-14] MEDS ORDERED: Vancomycin per Pharmacy* NOTE FOLLOW UP SCH ×2 (23:00)
[2018-12-14] MEDS ORDERED: Vancomycin(*) 1,000 MG in NS 0.9% 250 ML* 250 ML IVPB ONE (23:15)
[2018-12-15] MEDS ORDERED: NS 0.9% 1000 ML** 1,000 ML IV SCH ×2 (00:30→08:31)
[2018-12-15] MEDS: ZOSYN 3.375 GM Q8H per EXTENDED INFUSION IVPB SCH ×4 (02:19→10:33)
--- NOTE | 2018-12-15 02:56 | HP ---
CC: Rambo Newell MD * HISTORY AND PHYSICAL: DATE OF ADMISSION: 12/14/18 CHIEF COMPLAINT: Unresponsive. HISTORY OF PRESENT ILLNESS: This is a 58-year-old female who has metastatic colon cancer and is not currently on therapy due to recently rising bilirubin levels and a recent right ureteral stent for hydronephrosis who presents to the emergency department today after her daughter found her unresponsive at about 2: 30 this afternoon. Kika is able to provide much of the history. She reports that she woke up yesterday feeling "woozy". When asked to describe this further , she describes it as a lightheadedness, but no other specific symptoms. Overall, she also thinks she has felt a little unwell since her ureteral stent was placed 2 weeks ago; however, she has also been receiving Lasix and metolazone and lost 20 pounds in 1 week, so she also thinks that that may be contributing to why she has not felt well. Yesterday, she called the Oncology Office and was told to hold her evening dose of diuretics, which she did, but took the rest of her medications as prescribed. Then this morning when she woke up she again was feeling more fatigued and lightheaded than usual and states she had to gear herself up to try to get out of bed and make breakfast, which she never got around to. The last she remembers was trying to get up and to get moving around noon and then her daughter came to visit her and found her sprawled on the couch and unresponsive. She did not respond to a sternal rub, was snoring, and so they called EMS. When EMS arrived her glucose was found to be unreadable. Kika does not regularly check her blood sugar at home. She states generally she has a good appetite and that has actually been improved since she has been diuresed over the past week and her family have no concerns about her ability to take her medications and she is confident that she did not take any extra. She last took the glyburide last night before bed. She also takes metformin. She complains of no infectious symptoms. She denies dysuria, diarrhea, fevers, cough, rashes or tooth pain. In the emergency department, her initial blood sugar was 125 on a BMP. Her subsequent Accu-Chek was 46 after which she received 1 amp of D50 and her most recent Accu-Check was 175. Ms. Cano currently feels well and has no complaints. PAST MEDICAL HISTORY: Type 2 diabetes, colon cancer, status post colectomy. Her most recent treatment was palliative , which she had been tolerating well until this month. Hydronephrosis due to metastatic disease, status post right ureteral stent on , history of DVT in 1990. PAST SURGICAL HISTORY: 1. Resection of the rectosigmoid adenocarcinoma in 2014 2. Bile duct stent in 2015. 3. Cholecystectomy in 2016. 4. IVC filter in 2016 5. Right lobe of the liver removed in 2016 ALLERGIES: IV DYE. FAMILY HISTORY: She had an aunt with cancer, but no other familial malignancies. SOCIAL HISTORY: She lives at home with her and her son and his girlfriend. She is a never smoker and a never drinker. 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 REVIEW OF SYSTEMS: As per the HPI. Remainder of the 14-point review of systems is negative. PHYSICAL EXAMINATION GENERAL: Alert, ill appearing jaundiced female, who appears older than her staged age. VITAL SIGNS: Temperature 96.4, heart rate 55, respiratory rate 16, pulse ox 98 % on room air, blood pressure 85/62. HEENT: Pupils are 4 mm bilaterally and reactive to light. She has scleral icterus. Her oral mucosa is extremely dry with no pharyngeal exudates. NECK: No JVP or adenopathy. LUNGS: Her lungs have decreased breath sounds in the bilateral bases. CHEST: She is bradycardic with no murmurs. ABDOMEN: Her abdomen has a left-sided colostomy, a midline healed incision. Her liver is not palpable. She has no guarding or rebound and she has no CVA tenderness. EXTREMITIES: No edema, rashes or ulcers. NEUROLOGIC: She has no asterixis. Her strength is 5/5. She is oriented x3 and appropriate. INTEGUMENTARY: She has hyperpigmented skin on her back. LABORATORY DATA: White blood cell 13.6, her baseline white blood cells area approximately 2, hemoglobin 9.2, her baseline hemoglobin is 8 to 10, platelets 162, INR 1.33. Sodium 126, potassium 3.8, chloride 87, bicarb 26, BUN 74, creatinine 2.80, her creatinine 2 weeks ago was 2.0 and prior to that it was 1.0 , her total bilirubin is 8.1 from 6.3 a week ago, her albumin is 2.9, total protein 6.7, ALT 100, AST 106, alk phos 134. Urinalysis show 3+ leuk esterase and her ammonia is 134. IMAGING: A brain CT showed no evidence of intracranial mass or hemorrhage. A chest x-ray showed no active cardiopulmonary disease and an EKG shows normal sinus rhythm with normal axis, QRS is read as 133, but no bundle branch morphology, T- wave inversions in 3 and AVF, no Qs. The T-wave inversions are old from 2017. ASSESSMENT AND PLAN: This is a 58-year-old female with metastatic colon cancer who has most recently been on palliative chemotherapy, but is currently not in treatment due to rising bilirubin levels and a recent right ureteral stent for hydronephrosis who presents to the emergency department after she was found unresponsive and was found to have an unreadable glucose. 1. Hypoglycemia. The differential for this includes worsening renal failure, worsening liver failure, and oral anti-hypoglycemic in the setting of those metabolic derangements as well as an infectious etiology. I am holding both of her diabetic medications and completing an infectious workup and putting her on a D5 drip and admitting her to the ICU for Q1 Accu-Cheks. I am working out the etiology of the hypoglycemia as documented below. 2. Concern for underlying infection and leukocytosis. Her white blood cell count is markedly above her baseline and given her recent ureteral stent I am most concerned for a renal source of infection. I am getting a CT noncontrast now to evaluate the kidneys and the stent. I have discussed the case with Dr. Miles and he recommends if it is indeed infected that she should have antibiotics and the stent can be exchanged at a later date. I am also checking blood cultures. Her chest x-ray shows no evidence of pneumonia and she has no other localizing symptoms. 3. Acute on chronic renal failure. Certainly, she is extremely dry and this could be volume depletion; however, given her known hydronephrosis that was recently relieved with a right ureteral stent on 11/22/18, I am evaluating the stent function with a CT, and again I have discussed this with Urology if the stent is not working and she continues to be obstructed, she may need a percutaneous nephrostomy tube. I am allowing her to drink p.o. holding her diuretics and putting her on D5 half normal for a gentle volume resuscitation. 4. Rising bilirubin levels. This has been speculated in Dr. Newell's note as a possible reflection of ongoing direct tumor invasion versus ascites versus chemo side effects of which she is not currently on. She had a liver ultrasound last week to evaluate for the potential for stenting or draining, and it showed multiple large hepatic lesions consistent with metastatic disease , which appeared to have progressed from the prior CT study. However, the common bile duct was not visualized. 5. Hyponatremia. This is chronic and around her baseline, it do not have an osmolality, however she is profoundly dry at this time, so I am giving her half normal with her D5 and we will continue to monitor. 6. Type 2 diabetes. Q1 Accu-Cheks as above. 7. Diet unrestricted. 8. DVT prophylaxis. On hold in the setting of a coagulopathy, however, it should be noted that she may actually be hypercoagulable given her liver failure and active malignancy. 9. Disposition. Admit to the ICU with oncology consultation. [id number]/[facility] #: [id number] TANA
[2018-12-15 05:55] LABS: ABS Basophils 0 10^3/ul (0-0.2); ABS Eosinophils 0 10^3/ul (0-0.6); ABS Lymphocytes 0.2 10^3/ul (1.0-4.8); ABS Monocytes 1.8 10^3/ul (0-0.8); ABS Neutrophils 9.4 10^3/ul (1.5-7.7); ABS Nucleated RBC 0 10^3/ul; Eosinophil % 0.2 %; Hematocrit 24 % (33-41); Hemoglobin 8.1 g/dL (12.0-16.0); Lymphocyte % 2.1 %; Mean Corpuscular HGB Conc 34 g/dL (31-36); Mean Corpuscular Hemoglobin 34 pg (27-31); Mean Corpuscular Volume 99 fL (80-97); Mean Platelet Volume 9.1 fL (7.4-10.4); Nucleated Red Blood Cells % 0; Platelet Count 135 10^3/uL (150-450); Red Cell Distribution Width 24 % (10.5-15); White Blood Count 11.4 10^3/uL (3.5-10.8)
[2018-12-15 06:00] LABS: INR 1.37 (0.77-1.02)
[2018-12-15 06:10] LABS: BUN/Creatinine Ratio 29.7 (8-20); Calcium 8.4 mg/dL (8.6-10.3); EGFR African American 29.4 (>60); EGFR Non-African American 24.3 (>60); Potassium 3.9 mmol/L (3.5-5.0)
[2018-12-15] MEDS ORDERED: traZODone TAB* 50 MG TAB PO PRN (08:31)
--- NOTE | 2018-12-15 09:01 | PN ---
Subjective Date of Service: 12/15/18 Interval History: Poor appetite but no other c/o. Objective Active Medications: Diphenoxylate HCl/Atropine (Lomotil Tab*) 1 tab PO QID PRN PRN Reason: DIARRHEA Piperacillin Sod/Tazobactam (Sod 3.375 gm/ Sodium Chloride) 100 mls @ 25 mls/ hr IVPB Q8H [facility] Last Admin: 12/15/18 02:19 Dose: 25 mls/hr Vancomycin HCl 750 mg/ Sodium (Chloride) 250 mls @ 166.667 mls/hr IVPB Q24H [facility] Sodium Chloride (Ns 0.9% 1000 Ml) 1,000 mls @ 60 mls/hr IV PER RATE [facility] Nadolol (Corgard Tab*) 40 mg PO QPM [facility] Ondansetron HCl (Zofran Odt Tab*) 4 mg PO QID PRN PRN Reason: NAUSEA Pharmacy Consult (Zosyn Per Pharmacy*) 1 note FOLLOW UP .ZOSYN PER PHARMACY [facility] Pharmacy Consult (Vancomycin Per Pharmacy*) 1 note FOLLOW UP .VANC PER PHARMACY [facility] Pharmacy Consult (Vancomycin Random Level*) 1 note FOLLOW UP 1200 ONE Stop: 12/15/18 12:01 Prochlorperazine (Compazine Tab*) 10 mg PO Q6H PRN PRN Reason: NAUSEA Tramadol HCl (Ultram*) 50 mg PO Q12H PRN PRN Reason: PAIN Trazodone HCl (Desyrel Tab*) 25 mg PO BEDTIME PRN PRN Reason: INSOMNIA Vital Signs - 8 hr 12/15/18 12/15/18 12/15/18 01:00 01:15 01:30 Temperature Pulse Rate 58 58 62 Respiratory 19 15 24 Rate Blood Pressure 86/53 85/58 101/63 (mmHg) O2 Sat by Pulse 94 98 96 Oximetry 12/15/18 12/15/18 12/15/18 02:00 02:30 03:00 Temperature Pulse Rate 59 62 61 Respiratory 19 14 14 Rate Blood Pressure 85/61 86/58 87/58 (mmHg) O2 Sat by Pulse 100 97 98 Oximetry 12/15/18 12/15/18 12/15/18 03:30 03:37 04:00 Temperature 97.3 F Pulse Rate 63 72 Respiratory 15 17 Rate Blood Pressure 89/66 100/61 (mmHg) O2 Sat by Pulse 98 98 Oximetry 04/21/19 04/21/19 04/21/19 04:30 05:00 05:30 Temperature Pulse Rate 69 68 67 Respiratory 16 16 19 Rate Blood Pressure 101/64 92/63 90/60 (mmHg) O2 Sat by Pulse 99 98 98 Oximetry 12/15/18 12/15/18 12/15/18 06:00 06:30 07:00 Temperature Pulse Rate 67 65 72 Respiratory 15 16 18 Rate Blood Pressure 91/61 86/60 88/60 (mmHg) O2 Sat by Pulse 96 96 97 Oximetry 12/15/18 12/15/18 07:18 07:30 Temperature 97.4 F Pulse Rate 64 Respiratory 17 Rate Blood Pressure 89/62 (mmHg) O2 Sat by Pulse 96 Oximetry Oxygen Devices in Use Now: None Appearance: Alert, partly up on ICU bed. In good spirits. Looks comfortable. Eyes: - - marked icterus Respiratory: Symmetrical Chest Expansion and Respiratory Effort, Clear to Auscultation, Clear to Percussion Cardiovascular: NL Sounds; No Murmurs; No JVD, RRR, No Edema, - Extremities: No Edema, No Clubbing, Cyanosis, - Skin: No Rash or Ulcers, No Nodules or Sclerosis, - Neurological: Alert and Oriented x 3, NL Sensation, NL Gait, NL Muscle Strength and Tone, - Result Diagrams: 12/15/18 05:33 12/15/18 05:33 Microbiology and Other Data: Microbiology 12/14/18 21:26 Nasal Screen MRSA (PCR) - Final Nasal Mrsa Not Detected Assess/Plan/Problems-Billing Assessment: - Patient Problems (1) Metastatic adenocarcinoma Current Visit: No Status: Acute Code(s): C80.1 - MALIGNANT (PRIMARY) NEOPLASM, UNSPECIFIED SNOMED Code(s): 147644573 Comment: Followed by Dr. Newell; last chemotherapy was 10/2018 per patient. In view of liver dysfunction will reduce trazodone dose. Pt does not take trazodone very often. (2) Hypoglycemia Current Visit: Yes Status: Acute Code(s): E16.2 - HYPOGLYCEMIA, UNSPECIFIED SNOMED Code(s): 402826905 Comment: Due to glyburide, metformin, poor caloric intake. Off both meds. Pt has glucometer at home will check it every 4 hrs until it is consistently over 80. (3) Kidney stone Current Visit: Yes Status: Acute Code(s): N20.0 - CALCULUS OF KIDNEY SNOMED Code(s): 94703501 Comment: S/P R ureteral stent 11/20. Not clear if UTI present. No antibiotics, C&S results are pending.
[2018-12-15 11:02] VITALS: BP 91/65
[2018-12-15] MEDS ORDERED: Vancomycin Random Level* NOTE FOLLOW UP ONE (12:00)
[2018-12-15] MEDS ORDERED: Nadolol TAB* 40 MG PO SCH (18:00)
--- NOTE | 2018-12-15 21:00 | DS ---
CC: Dr. Newell; Dr. Deana Hodges * DISCHARGE SUMMARY: DATE OF ADMISSION: DATE OF DISCHARGE: 12/15/18 HISTORY OF PRESENT ILLNESS/HOSPITAL COURSE: This 58-year-old woman was found unresponsive at home about 2:30 this afternoon. The ambulance crew found her to be hypoglycemic. She received D50. Following that in the emergency room, her blood sugar was 125, but did go down I believe to about 46 and she got a second amp of D50 in the emergency room. She was given intravenous glucose by infusion after that. She was monitored in the intensive care unit with frequent fingersticks. Her blood sugars were over 200 consistently. The intravenous glucose was stopped. At 9 a.m., her fingerstick was 135; at 11 a.m. , her fingerstick was 114. The patient returned completely to her baseline state. I note she has metastatic adenocarcinoma with liver metastases. Her appetite is poor. She is quite thin, BMI is 21. The patient has a glucometer at home. She was advised to check it in the afternoon and also at bedtime. She was advised to check it every 4 hours until it is consistently over 80. She was advised to either have glucose paste on hand or have a candy bar. If blood sugar gets below 100, she could have some orange juice with sugar or candy bar, glucose paste or regular meal or snack. She takes trazodone very infrequently. In view of her liver and kidney dysfunction, I would reduce the dose to 25 mg. She is to see Dr. Newell the day after discharge for her routine followup appointment. FINAL DIAGNOSES: 1. Hypoglycemia due to glyburide. 2. Adenocarcinoma of the colon with multiple liver metastases. 3. Kidney stone with ureteral stent placed on the right, 11/20/18. Urine cultures are pending at this time. She did receive antibiotics in the hospital, but there is little evidence of urine infection at this time, and I would hold off on antibiotics unless she has a fever. The family will monitor for fever as well. DISCHARGE MEDICATIONS: 1. Trazodone 25 mg h.s. p.r.n. 2. Ondansetron ODT 4 mg q.i.d. p.r.n. 3. Tramadol 50 mg every 6 hours p.r.n. 4. Spironolactone 50 mg b.i.d. 5. Lomotil 1 tablet q.i.d. p.r.n. 6. Nadolol 40 mg h.s. 7. Prochlorperazine 10 mg every 6 hours p.r.n. CONDITION ON DISCHARGE: Stable. DISPOSITION ON DISCHARGE: Discharged home. [id number]/[facility] #: [id number] MTDD
[2018-12-15] MEDS ORDERED: Vancomycin(*) 750 MG in NS 0.9% 250 ML* 250 ML IVPB SCH (23:00)
== END 2018-12-15 11:20 | disposition home or self-care (01) ==
LOC: ED 16:05 → INTOOBSV 20:05 → ICU 20:05
PROVIDERS: ADMIT Internal Medicine; ATTEND Internal Medicine
DX: E16.2 Hypoglycemia, unspecified (principal); C18.9 Malignant neoplasm of colon, unspecified; Z87.442 Personal history of urinary calculi; N17.9 Acute kidney failure, unspecified; Z92.21 Personal history of antineoplastic chemotherapy; R47.81 Slurred speech; C78.7 Secondary malignant neoplasm of liver and intrahepatic bile duct; Z86.718 Personal history of other venous thrombosis and embolism; Z90.49 Acquired absence of other specified parts of digestive tract
CPT/HCPCS: 36415; 70450; 71045; 74176; 80048; 80053; 80307; 80320; 80329; 81003; 81015; 82140; 82550; 83036; 83605; 83735; 84443; 84484; 85025; 85610; 87040; 87086; 87641; 93005; 96374; 96375; 99285; A9270-GY; G0378; G0480; J2543; J3370